=== PATIENT | male | born 1945 | race Caucasian/White ===

== ENCOUNTER 2020-06-08 20:21 | Inpatient (IN) | payer MEDICARE, OTHER ==
[~2020-06-08] VITALS: Ht 182.9 cm; Wt 77.8 kg
[2020-06-08] MEDS ORDERED: ACETAMINOPHEN 325 MG TAB PO ONE (21:00)
[2020-06-08] MEDS ORDERED: SODIUM CHLORIDE 0.9% 1,000 ML IV ONE (22:15)
[2020-06-08 22:48] LABS: Urine WBC None Seen /hpf (0 - 3)
[2020-06-08 22:56] LABS: Basophils # (auto) 0 10 ^3/uL (0-0.2); Basophils % (auto) 0.4 % (0.0-2.0); Eosinophils # (auto) 0 10 ^3/uL (0-0.8); Hematocrit 42.9 % (41.0-53.0); Hemoglobin 14.8 g/dL (13.5-17.5); Lymphocytes # (auto) 0.9 10 ^3/uL (0.4-5.4); Lymphocytes % (auto) 32.1 % (10.0-50.0); Mean Corpuscular Hemoglobin 29.2 pg (28.0-32.0); Mean Corpuscular Hgb Conc. 34.4 g/dL (32.0-36.0); Monocytes # (auto) 0.3 10 ^3/uL (0-1.3); Monocytes % (auto) 10.6 % (0.0-12.0); Neutrophils # (auto) 1.7 10 ^3/uL (1.6-8.6); Neutrophils % (auto) 56.9 % (37.0-80.0); Nucleated Red Blood Cells % 0.2 %; Platelet Count (auto) 111 10^3/uL (140-450); Red Blood Cells 5.05 10^6/uL (4.5-5.90); Red Cell Distribution Width 14.5 % (11.8-14.3); White Blood Cell 2.9 10^3/uL (4.4-10.8)
[2020-06-08 23:02] LABS: Urine Bacteria NONE SEEN /hpf (None Seen); Urine Blood Negative /uL (Negative); Urine Hyaline Cast FEW /lpf (0 - 2); Urine Specific Gravity 1.035 (1.001-1.035)
[2020-06-08 23:11] LABS: INR 1.32 (0.9-1.15); Partial Thromboplastin Time 29.6 sec (23.0-31.2)
[2020-06-08 23:16] LABS: Albumin 3.3 g/dL (3.4-5.0); Anion Gap 10 (5-15); BUN/Creatinine Ratio 19.8; Blood Urea Nitrogen 21 mg/dL (7-18); Calcium 8.6 mg/dL (8.5-10.1); Carbon Dioxide 20 mmol/L (21-32); Chloride 103 mmol/L (98-107); GFR African American 87 mL/min; GFR Non-African American 72 mL/min; Glucose 329 mg/dL (74-106); Magnesium 1.9 mg/dL (1.6-2.6); Potassium 3.7 mmol/L (3.5-5.1); Sodium 133 mmol/L (136-145)
[2020-06-08 23:29] LABS: Alanine Aminotransferase 34 U/L (16-61); Alkaline Phosphatase 96 U/L (45-117); Aspartate Aminotransferase 22 U/L (15-37); Bilirubin, Total 0.4 mg/dL (0.2-1.0); Total Protein 7.4 g/dL (6.4-8.2)
[2020-06-08] MEDS ORDERED: AMLO5TAB15 PO (23:49)
[2020-06-08] MEDS ORDERED: ATOR1TAB PO (23:49)
[2020-06-08] MEDS ORDERED: OMEP-260 PO (23:49)
[2020-06-08] MEDS ORDERED: CLOP75TA41 PO (23:49)
[2020-06-09] VITALS (7 sets, daily range): BP systolic 102–143; BP diastolic 47–66
[2020-06-09] MEDS ORDERED: levoFLOXacin 750MG 150 ML IV ONE (00:45)
[2020-06-09] MEDS ORDERED: InsuLIN REG 1unit/0.01ml Soln (100units/ml) IV ONE ×2 (01:00→01:15)
[2020-06-09] MEDS ORDERED: SODIUM CHLORIDE 0.9% 1,000 ML IV ONE (01:00)
[2020-06-09] MEDS ORDERED: DEXTROSE (50%) 50ML SYRG IV PRN ×2 (01:30→13:45)
[2020-06-09] MEDS ORDERED: ACETAMINOPHEN 500 MG TAB PO PRN (01:30)
[2020-06-09] MEDS ORDERED: SODIUM CHLORIDE 0.9% 1,000 ML IV SCH (01:30)
[2020-06-09] MEDS ORDERED: DexAMETHasone SOD PHOS 10MG/1ML VIAL INJ IV SCH (02:00)
--- NOTE | 2020-06-09 02:40 | NUR ---
Telemetry admit from ER WINDY CAMPA admitted to Telemetry unit after SBAR received. Patient oriented to KAJAL CARR RN primary RN, unit, room, bed, and unit policies regarding patient care and visiting hours. Patient now on continuous telemetry monitoring, tele box # 8 and telemetry reading on arrival to unit is Sinus Rhythm at 75BPM. Patient placed on bedside oxygen, weighed by bedscale and encouraged to call if they need something. All questions and concerns addressed, patient verbalized understanding.
[2020-06-09] MEDS: ACCU-CHEK COMFORT CURVE STRIP VI SCH ×5 (04:24→22:00)
[2020-06-09] MEDS: InsuLIN REG 1unit/0.01ml Soln (100units/ml) SC SCH ×4 (04:37→22:55)
[2020-06-09] MEDS ORDERED: ALBUTEROL SULF HFA 90MCG INH 200DOSE IN SCH (06:00)
--- NOTE | 2020-06-09 08:00 | NUR ---
ASSESSMENT NOTE PT IS ALERT ORIENTED X4, RESTING IN BED COMFORTABLY, ABLE TO VERBALIS HER NEEDS AND SELF REPOSITION, USE URINAL NEEDED, PAIN 0/10, PT ON 5 L NC SAT AT 96 %, NO DISTRESS NOTED, PAIN 0/10, CALL LIGHT WITHIN REACH
--- NOTE | 2020-06-09 08:25 | NUR ---
IV insertion IV access obtained, via clean sterile technique by inserting 22 gauge catheter at after attempt(s). IV secured properly. No trauma to site. Patient tolerated procedure well.PT ACCIDENTALLY PULLED OLD IV OUT, INTACT, PRESSURE APPLIED
[2020-06-09] MEDS: ENOXAPARIN SOD 40 MG/0.4 ML SYRINGE SC SCH (09:56)
[2020-06-09] MEDS ORDERED: ZINC SULFATE 220mg CAP or TAB PO SCH (10:00)
[2020-06-09] MEDS ORDERED: cefTRIAXone 1GM/50ML D5W 50 ML IV ONE (10:00)
[2020-06-09] MEDS ORDERED: CHOLECALCIFEROL (VITD3) 2,000 UNIT CAP PO SCH (10:00)
[2020-06-09] MEDS ORDERED: BUDESONIDE (INHALATION) 180 MCG IH IN SCH (10:00)
[2020-06-09] MEDS ORDERED: DOXYCYCLINE 100 MG TAB/CAP PO SCH (10:00)
[2020-06-09] MEDS ORDERED: ASCORBIC ACID 1,000 MG TAB PO SCH (10:00)
--- NOTE | 2020-06-09 10:15 | NUR ---
CHEST CT PT MADE AWARE OF THE CHEST CT, NOTHING BY MOUTH TILL THE TEST IS DONE, PT VERBALIS UNDERSTANDING
--- NOTE | 2020-06-09 10:26 | NUR ---
IV insertion IV access obtained, via clean sterile technique by inserting 20 gauge catheter at after attempt(s). IV secured properly. No trauma to site. Patient tolerated procedure well. FOR CHEST CT PURPOSES
--- NOTE | 2020-06-09 12:00 | NUR ---
INSULIN ON HOLD, TILL PT DONE WITH CHEST CT, THEN HE CAN EAT LUNCH
--- NOTE | 2020-06-09 12:36 | NUR ---
PT IS NEGATIVE FOR COVID, CHARGE NURSE RYLIE MADE AWARE
[2020-06-09] MEDS ORDERED: CLOPIDOGREL BISULFATE 75 MG TAB PO ONE (13:45)
[2020-06-09] MEDS ORDERED: INSULIN LANTUS (GLARGINE) 1 /0.01ml (100units/ml) SC ONE (13:45)
--- NOTE | 2020-06-09 14:50 | NUR ---
REPORT GIVEN TO RUBY WINTER, WITH ALL LATEST PT UPDATE, CONTINUE AWAITING FOR THE TELE BOX
--- NOTE | 2020-06-09 15:30 | NUR ---
TRANSFER PT TO [facility] WITH ALL HIS BELONGING, PT CONTINUE NPO FOR CHEST CT, OXYGEN 4 L THOMAS, RYLIE MANAGER BEVERAGE NURSE AT BED SIDE, NO DISTRESS NOTED, CONTINUE CARE
[2020-06-09] MEDS ORDERED: IOHEXOL 350 MG/ML 100ML IJ ONE (15:33)
--- NOTE | 2020-06-09 15:56 | NUR ---
PATIENT ARRIVED FROM [facility].
[2020-06-09] MEDS: ALBUTEROL SULF 2.5 MG/0.5ML(0.5%) NEB SOLN NEB SCH (18:51)
[2020-06-09] MEDS: IPRATROPIUM BROM 0.5 MG/2.5ML INH SOL NEB SCH (18:51)
[2020-06-09] MEDS: ATORVASTATIN 20 MG TAB PO SCH (22:56)
[2020-06-10] MEDS: ACETAMINOPHEN 325 MG TAB PO PRN ×3 (04:28→15:55)
[2020-06-10 05:00] VITALS: BP 144/68
[2020-06-10] MEDS: ALBUTEROL SULF 2.5 MG/0.5ML(0.5%) NEB SOLN NEB SCH ×4 (06:31→18:09)
[2020-06-10] MEDS: IPRATROPIUM BROM 0.5 MG/2.5ML INH SOL NEB SCH ×4 (06:31→18:09)
[2020-06-10] MEDS: ACCU-CHEK COMFORT CURVE STRIP VI SCH ×4 (06:44→21:19)
[2020-06-10] MEDS: InsuLIN REG 1unit/0.01ml Soln (100units/ml) SC SCH ×4 (06:44→21:20)
--- NOTE | 2020-06-10 07:08 | NUR ---
High Temp The patient was discovered with a high temp of 101F at 0430hrs. Gave the patient Tylenol to reduce the fever. upon reassessment he was 99.1F. Will continue to monitor.
[2020-06-10 07:28] LABS: Basophils # (auto) 0 10 ^3/uL (0-0.2); Basophils % (auto) 0.5 % (0.0-2.0); Eosinophils # (auto) 0 10 ^3/uL (0-0.8); Hematocrit 40.1 % (41.0-53.0); Hemoglobin 13.7 g/dL (13.5-17.5); Lymphocytes # (auto) 1.1 10 ^3/uL (0.4-5.4); Lymphocytes % (auto) 33.2 % (10.0-50.0); Mean Corpuscular Hemoglobin 29.1 pg (28.0-32.0); Mean Corpuscular Hgb Conc. 34.2 g/dL (32.0-36.0); Monocytes # (auto) 0.2 10 ^3/uL (0-1.3); Monocytes % (auto) 7.4 % (0.0-12.0); Neutrophils # (auto) 1.9 10 ^3/uL (1.6-8.6); Neutrophils % (auto) 58.9 % (37.0-80.0); Nucleated Red Blood Cells % 0.2 %; Platelet Count (auto) 103 10^3/uL (140-450); Red Blood Cells 4.73 10^6/uL (4.5-5.90); Red Cell Distribution Width 14.2 % (11.8-14.3); White Blood Cell 3.3 10^3/uL (4.4-10.8)
--- NOTE | 2020-06-10 07:30 | NUR ---
Opening Note Received report from extension supervisor RN. Patient is awake, alert and oriented x4. No signs or symptoms of distress noted at this time. Patient denies pain or shortness of breath at this time. Patient is on room air, respirations even and unlabored. Reviewed plan of care with patient, patient verbalized understanding. Bed in low and locked position, call light within reach. Will continue to monitor Q1 hour and PRN.
[2020-06-10 07:42] LABS: Calcium 8.2 mg/dL (8.5-10.1); Potassium 3.6 mmol/L (3.5-5.1)
[2020-06-10 07:47] LABS: Bilirubin, Total 0.5 mg/dL (0.2-1.0); Total Protein 6.5 g/dL (6.4-8.2)
[2020-06-10 08:52] VITALS: BP 118/57
[2020-06-10] MEDS: amLODIPine BESYLATE 5 MG TAB PO SCH (09:09)
[2020-06-10] MEDS: CLOPIDOGREL BISULFATE 75 MG TAB PO SCH (09:10)
[2020-06-10] MEDS: cefTRIAXone 1GM/50ML D5W 50 ML IV SCH (09:10)
[2020-06-10] MEDS: ENOXAPARIN SOD 40 MG/0.4 ML SYRINGE SC SCH (09:11)
[2020-06-10] MEDS: INSULIN LANTUS (GLARGINE) 1 /0.01ml (100units/ml) SC SCH (09:24)
[2020-06-10] MEDS: AZITHROMYCIN 500MG/ 250ML 250 ML IV SCH (10:18)
[2020-06-10 12:51] VITALS: BP 95/46
[2020-06-10 16:41] VITALS: BP 129/63
--- NOTE | 2020-06-10 19:08 | NUR ---
Closing Note Report given to shift supervisor RN. No signs or symptoms of distress noted at this time.
--- NOTE | 2020-06-10 19:40 | NUR ---
Opening Shift Note Assumed care of patient, awake and alert. No S/S of distress/SOB or pain. Fall and safety precautions in place. Call light within reach and able to use. Instructed on POC and to call for assist PRN, patient verbalized understanding and in agreement. Will continue to monitor for changes Q1hr and PRN.
[2020-06-10] MEDS: ATORVASTATIN 20 MG TAB PO SCH (21:19)
[2020-06-10] MEDS ORDERED: INSULIN LANTUS (GLARGINE) 1 /0.01ml (100units/ml) SC SCH (22:00)
[2020-06-10 22:54] VITALS: BP 130/70
[2020-06-11] MEDS: ALBUTEROL SULF 2.5 MG/0.5ML(0.5%) NEB SOLN NEB SCH ×4 (00:02→18:55)
[2020-06-11] MEDS: IPRATROPIUM BROM 0.5 MG/2.5ML INH SOL NEB SCH ×4 (00:02→18:55)
--- NOTE | 2020-06-11 04:45 | NUR ---
TEMP PATIENT'S ORAL TEMP 101.4 F. PATIENT EDUCATED ON INDICATION FOR COOLING MEASURES, PATIENT VERBALIZED UNDERSTANDING AND IN AGREEMENT. MEASURES INITIATED AT THIS TIME (SEE EMAR). WILL CONTINUE TO MONITOR.
[2020-06-11] MEDS: ACETAMINOPHEN 325 MG TAB PO PRN (04:49)
[2020-06-11 05:33] VITALS: BP 130/71
--- NOTE | 2020-06-11 05:49 | NUR ---
TEMP RECHECK PATIENT'S ORAL TEMP NOW 98.6 F. WILL CONTINUE TO MONITOR.
[2020-06-11] MEDS: ACCU-CHEK COMFORT CURVE STRIP VI SCH ×4 (06:13→21:27)
[2020-06-11] MEDS: InsuLIN REG 1unit/0.01ml Soln (100units/ml) SC SCH ×4 (06:15→21:29)
--- NOTE | 2020-06-11 07:30 | NUR ---
Opening Shift Note Assumed care of patient, awake and alert. No S/S of distress/SOB or pain. Instructed on POC and to call for assist PRN, will continue to monitor for changes Q1hr and PRN.
[2020-06-11 07:40] LABS: Basophils # (auto) 0 10 ^3/uL (0-0.2); Basophils % (auto) 1.9 % (0.0-2.0); Eosinophils # (auto) 0 10 ^3/uL (0-0.8); Hematocrit 41.2 % (41.0-53.0); Lymphocytes % (auto) 38.2 % (10.0-50.0); Mean Corpuscular Hemoglobin 28.8 pg (28.0-32.0); Mean Corpuscular Hgb Conc. 34.1 g/dL (32.0-36.0); Mean Corpuscular Volume 84.4 fL (80.0-100.0); Monocytes # (auto) 0.2 10 ^3/uL (0-1.3); Monocytes % (auto) 7.9 % (0.0-12.0); Neutrophils # (auto) 1.3 10 ^3/uL (1.6-8.6); Nucleated Red Blood Cells % 0.3 %; Platelet Count (auto) 102 10^3/uL (140-450); Red Blood Cells 4.88 10^6/uL (4.5-5.90); Red Cell Distribution Width 14.2 % (11.8-14.3); White Blood Cell 2.6 10^3/uL (4.4-10.8)
[2020-06-11 08:04] LABS: Albumin 2.8 g/dL (3.4-5.0); Potassium 3.4 mmol/L (3.5-5.1)
[2020-06-11 08:09] LABS: BUN/Creatinine Ratio 17.4; Bilirubin, Total 0.4 mg/dL (0.2-1.0); Total Protein 6.4 g/dL (6.4-8.2)
[2020-06-11 08:52] VITALS: BP 113/58
[2020-06-11] MEDS: INSULIN LANTUS (GLARGINE) 1 /0.01ml (100units/ml) SC SCH ×2 (10:00→21:29)
[2020-06-11] MEDS: cefTRIAXone 1GM/50ML D5W 50 ML IV SCH (10:31)
[2020-06-11] MEDS: AZITHROMYCIN 500MG/ 250ML 250 ML IV SCH (10:32)
[2020-06-11] MEDS: ENOXAPARIN SOD 40 MG/0.4 ML SYRINGE SC SCH (10:32)
[2020-06-11] MEDS: CLOPIDOGREL BISULFATE 75 MG TAB PO SCH (10:33)
[2020-06-11] MEDS: amLODIPine BESYLATE 5 MG TAB PO SCH (10:33)
[2020-06-11 12:02] VITALS: BP 124/62
[2020-06-11] MEDS ORDERED: POTASSIUM EFFERVESENT TAB 25 MEQ PO ONE (16:45)
[2020-06-11 17:00] VITALS: BP 134/67
[2020-06-11] MEDS ORDERED: PANTOPRAZOLE 40 MG TAB PO ONE (17:00)
--- NOTE | 2020-06-11 18:56 | NUR ---
End of shift Pt. resting comfortably; no signs or symptoms of distress. Care endorsed.
--- NOTE | 2020-06-11 19:50 | NUR ---
Opening Shift Note Assumed care of patient, AOX4. Fall and safety precautions in place. No S/S of distress/SOB or pain. Call light within reach and able to use. Instructed on POC and to call for assist PRN, patient verbalized understanding and in agreement. Will continue to monitor for changes Q1hr and PRN.
[2020-06-11] MEDS: ATORVASTATIN 20 MG TAB PO SCH (21:27)
[2020-06-11 22:00] VITALS: BP 133/69
--- NOTE | 2020-06-11 22:00 | NUR ---
15 L Oxymizer Patient's O2 saturation on 6 L Oxymizer mid to high 80's. Patient O2 increased to 15 L at this time. O2 saturation 89%. RT paged to notify. RT to assess patient and shows O2 saturation increased to 92% after repositioning. Will continue to monitor.
[2020-06-12] VITALS (8 sets, daily range): BP systolic 115–156; BP diastolic 52–94
[2020-06-12] MEDS: IPRATROPIUM BROM 0.5 MG/2.5ML INH SOL NEB SCH ×4 (00:27→19:27)
[2020-06-12] MEDS: ALBUTEROL SULF 2.5 MG/0.5ML(0.5%) NEB SOLN NEB SCH ×4 (00:27→19:27)
[2020-06-12] MEDS: ACCU-CHEK COMFORT CURVE STRIP VI SCH ×4 (06:13→21:44)
[2020-06-12] MEDS: InsuLIN REG 1unit/0.01ml Soln (100units/ml) SC SCH ×4 (06:13→21:45)
[2020-06-12] MEDS: INSULIN LANTUS (GLARGINE) 1 /0.01ml (100units/ml) SC SCH ×2 (06:18→21:45)
[2020-06-12] MEDS: LACTULOSE 20Gm/30ML SOLN PO PRN (06:18)
[2020-06-12 06:37] LABS: Basophils # (auto) 0 10 ^3/uL (0-0.2); Basophils % (auto) 0.3 % (0.0-2.0); Eosinophils # (auto) 0 10 ^3/uL (0-0.8); Hematocrit 42.2 % (41.0-53.0); Hemoglobin 14.6 g/dL (13.5-17.5); Lymphocytes # (auto) 1.2 10 ^3/uL (0.4-5.4); Lymphocytes % (auto) 32.9 % (10.0-50.0); Mean Corpuscular Hgb Conc. 34.6 g/dL (32.0-36.0); Mean Corpuscular Volume 83.9 fL (80.0-100.0); Monocytes # (auto) 0.2 10 ^3/uL (0-1.3); Monocytes % (auto) 4.7 % (0.0-12.0); Neutrophils # (auto) 2.2 10 ^3/uL (1.6-8.6); Neutrophils % (auto) 62.1 % (37.0-80.0); Nucleated Red Blood Cells % 0.2 %; Platelet Count (auto) 115 10^3/uL (140-450); Red Blood Cells 5.03 10^6/uL (4.5-5.90); Red Cell Distribution Width 14.2 % (11.8-14.3); White Blood Cell 3.6 10^3/uL (4.4-10.8)
[2020-06-12 06:51] LABS: BUN/Creatinine Ratio 16.5; Calcium 7.9 mg/dL (8.5-10.1); Potassium 3.2 mmol/L (3.5-5.1)
[2020-06-12] MEDS: cefTRIAXone 1GM/50ML D5W 50 ML IV SCH (10:33)
[2020-06-12] MEDS: PANTOPRAZOLE 40 MG TAB PO SCH (10:34)
[2020-06-12] MEDS: ENOXAPARIN SOD 40 MG/0.4 ML SYRINGE SC SCH (10:34)
[2020-06-12] MEDS: AZITHROMYCIN 500MG/ 250ML 250 ML IV SCH (10:34)
[2020-06-12] MEDS: CLOPIDOGREL BISULFATE 75 MG TAB PO SCH (10:34)
[2020-06-12] MEDS: amLODIPine BESYLATE 5 MG TAB PO SCH (10:35)
--- NOTE | 2020-06-12 11:14 | NUR ---
Nutrition Assessment Est energy needs 9656-2140 kcal (20-25 kcal/kg BW 83.3kg) Est protein needs 66-83g (0.8-1g/kg BW 83.3kg) Will reassess prn. Addendum: 06/12/20 at [address] Amended: Links added.
[2020-06-12] MEDS ORDERED: POTASSIUM EFFERVESENT TAB 25 MEQ PO ONE (12:45)
--- NOTE | 2020-06-12 19:30 | NUR ---
Opening Shift Note Assumed care of patient, awake and alert. No S/S of distress/SOB or pain. Call light within reach and able to use. Fall and safety precautions in place. Instructed on POC and to call for assist PRN, patient verbalized understanding and in agreement. Will continue to monitor for changes Q1hr and PRN.
--- NOTE | 2020-06-12 19:33 | NUR ---
AT BEDSIDE FOR MED ANURADHA STRAUSS.
--- NOTE | 2020-06-12 20:40 | NUR ---
CARE ENDORSED CALLED [facility] AT THIS TIME. FULL REPORT GIVEN AND INDICATION FOR TRANSFER, ALL QUESTIONS ANSWERED. WILL TRANSFER PATIENT. Addendum: 06/12/20 at 2344 by SHEFALI HOOPER RN RN TIME CORRECTION [id number]*
[2020-06-12] MEDS: ATORVASTATIN 20 MG TAB PO SCH (21:44)
--- NOTE | 2020-06-12 21:54 | NUR ---
LOW 02 PATIENT'S O2 SATURATION 80'S ON 10 L OXYMIZER. PATIENT O2 INCREASED TO 15L/MIN, HOB RAISED TO HIGH DAVIS'S, AND PATIENT ASSISTED TO COUGH/DEEP BREATH. PATIENT'S O2 SATURATION INCREASED TO 85%. RT PAGED FOR ASSISTANCE. WILL CONTINUE TO MONITOR.
--- NOTE | 2020-06-12 21:55 | NUR ---
PAGED TO BEDSIDE TO ASSESS PT, DUE TO LOW SATURATION.
--- NOTE | 2020-06-12 22:00 | NUR ---
[facility] PAGED [facility] P[facility]ED TO UPDATE ON PATIENT'S ACUTE RESPIRATORY DISTRESS / PATIENT STATUS. AWAITING CALL BACK. WILL CONTINUE TO MONITOR.
--- NOTE | 2020-06-12 22:03 | NUR ---
ABG OBTAINED ON RRA, ON FIRST ATTEMPT AND WITHOUT INCIDENT.
--- NOTE | 2020-06-12 22:09 | NUR ---
COMMUNICATED TV HOST ARJUN AND HS OF THE NEED TO UPGRADE PT, DUE TO PT PRESENTATION AND O2 CONSUMPTION/SATURATION STATUS, PRIMARY RN SHEFALI COMMUNICATES ALSO OF ABG RESULTS AND TO OBTAIN ORDERS FOR TRANSFER.
--- NOTE | 2020-06-12 22:10 | NUR ---
PLACED PT ON NRB FLUSHED, PENDING TRANSFER TO [facility] FOR HFNC PLACEMENT.
--- NOTE | 2020-06-12 22:15 | NUR ---
[facility] PAGED AGAIN HAVE NOT YET RECEIVED A CALL BACK FROM [facility]-CALL HOSP. BREAKER OFF AND DOROTHY SOSA AWARE. INSTRUCTED TO PAGE AGAIN. PAGED AGAIN WITH PATIENT'S TRACEY REGARDING RESPIRATORY STATUS. AWAITING CALL BACK. WILL CONTINUE TO MONITOR.
--- NOTE | 2020-06-12 22:30 | NUR ---
CHARGE NEW PAGES ROTARY DRIER PAGES FOR [facility]CALL [facility]. AWAITING CALL BACK.
--- NOTE | 2020-06-12 22:35 | NUR ---
CALL BACK FROM [facility] RECEIVED A CALL BACK FROM [facility] AT THIS TIME. UPDATED CAR DISPATCHER ON PATIENT STATUS. NEW ORDERS RECEIVED, READ BACK AND VERIFIED (SEE NEW ORDERS). WILL CARRY OUT. TO TRANSFER PATIENT TO ROOM 265 WITH NEW [facility] RN.
--- NOTE | 2020-06-12 22:50 | NUR ---
TRANSFERRED TO [facility] PATIENT SAFELY TRANSFERRED TO [facility] AT THIS TIME VIA BED ASSISTED BY DIRECTOR OF HOUSING AND ENERGY SERVICES WITH ALL PATIENT'S PERSONAL BELONGINGS AND OXYGEN. CARE ENDORSED AT THIS TIME TO NEW RN.
--- NOTE | 2020-06-12 23:05 | NUR ---
PLACED PT ON HFNC UNIT HFNC UNIT CONNECTED TO RED OUTLE AND O2 SOURCE ALARMS ARE SET AND AUDIBLE. A Addendum: 06/12/20 at 2317 by Kerry Naik, RT PLACED PT ON HFNC UNIT. HFNC UNIT CONNECTED TO O2 AND MEDICAL AIR WALL SOURCE. ALARMS ARE SET AND AUDIBLE ON DOC HEATER. BS ARE FINE CRACKLES HEARD IN BILATERAL BASES. RT NAME AND PAGER ASSIGNMENT WRITTEN ON PTS ROOM BOARD WILL CONTINUE TO MONITOR.
[2020-06-12] MEDS: ACETAMINOPHEN 325 MG TAB PO PRN (23:13)
--- NOTE | 2020-06-12 23:18 | NUR ---
Transferred to [facility], report received from Ena WINTER. SHARITA MALAVEWINDY transferred to [facility] via bed on portable bus driver/monitor, and portable 02. Patient transferred to bed, connected to unit monitoring and Hi-Flow oxygen, and weighed by [facility]. Patient oriented to Crys Villalta primary RN, unit, room, bed, and unit policies regarding patient care. All questions and concerns addressed, patient verbalized understanding. Pt has fever and chills, Tylenol given. Crackles heard bilat bases. Denies pain at this time. Will continue to monitor.
--- NOTE | 2020-06-12 23:20 | NUR ---
NOK NOTIFIED OF TRANSFER NOK (PATIENT'S - SELENE) CONTACTED VIA TELEPHONE AT THIS TIME AND UPDATED ON PATIENT STATUS AND TRANSFER STATUS. ALL QUESTIONS ANSWERED AND NOTIFIED HOW TO ADDRESS FURTHER QUESTIONS NEEDED, PATIENT'S NOK VERBALIZED UNDERSTANDING AND IN AGREEMENT.
[2020-06-13] VITALS (12 sets, daily range): BP systolic 127–157; BP diastolic 53–68
[2020-06-13] MEDS: IPRATROPIUM BROM 0.5 MG/2.5ML INH SOL NEB SCH ×4 (01:09→18:24)
[2020-06-13] MEDS: ALBUTEROL SULF 2.5 MG/0.5ML(0.5%) NEB SOLN NEB SCH ×4 (01:09→18:24)
--- NOTE | 2020-06-13 01:23 | NUR ---
FIO2 TITRATED VIA HFNC, PT NOW ON 90% FIO2 DELIVERING AT 60LPM. COMMUNICATED MOY [facility] OF O2 CHANGE. WILL CONTINUE TO MONITOR.
--- NOTE | 2020-06-13 03:05 | NUR ---
AT BEDSIDE FOR ROUTINE HFNC CHECK. NO CHANGES MADE. WILL CONTINUE TO MONITOR.
[2020-06-13 04:41] LABS: Basophils # (auto) 0 10 ^3/uL (0-0.2); Basophils % (auto) 0.3 % (0.0-2.0); Eosinophils # (auto) 0 10 ^3/uL (0-0.8); Eosinophils % (auto) 0.1 % (0.0-7.0); Hematocrit 39.8 % (41.0-53.0); Hemoglobin 13.6 g/dL (13.5-17.5); Lymphocytes # (auto) 1.3 10 ^3/uL (0.4-5.4); Lymphocytes % (auto) 31.1 % (10.0-50.0); Mean Corpuscular Hemoglobin 28.6 pg (28.0-32.0); Mean Corpuscular Hgb Conc. 34.2 g/dL (32.0-36.0); Mean Corpuscular Volume 83.6 fL (80.0-100.0); Monocytes # (auto) 0.2 10 ^3/uL (0-1.3); Monocytes % (auto) 4.3 % (0.0-12.0); Neutrophils # (auto) 2.7 10 ^3/uL (1.6-8.6); Neutrophils % (auto) 64.2 % (37.0-80.0); Nucleated Red Blood Cells % 0.4 %; Platelet Count (auto) 121 10^3/uL (140-450); Red Blood Cells 4.76 10^6/uL (4.5-5.90); Red Cell Distribution Width 14.1 % (11.8-14.3); White Blood Cell 4.3 10^3/uL (4.4-10.8)
[2020-06-13 05:03] LABS: Potassium 3.4 mmol/L (3.5-5.1)
[2020-06-13 05:11] LABS: BUN/Creatinine Ratio 19.2; Calcium 8.1 mg/dL (8.5-10.1)
[2020-06-13] MEDS: INSULIN LANTUS (GLARGINE) 1 /0.01ml (100units/ml) SC SCH ×2 (07:01→21:39)
[2020-06-13] MEDS: ACCU-CHEK COMFORT CURVE STRIP VI SCH ×4 (07:02→21:36)
[2020-06-13] MEDS: InsuLIN REG 1unit/0.01ml Soln (100units/ml) SC SCH ×4 (07:02→21:37)
--- NOTE | 2020-06-13 07:45 | NUR ---
OPENING SHIFT NOTE Received report from NOC RNCrys. Assumed care of patient. Received patient lying in bed connected to bedside monitor with alarms in place. Patient is A&Ox4, denies pain and has no s/s of distress noted. Patient on high flow oxygen, 60L 90% with O2 sats in the low 90s. Lung sounds clear to diminished bases. Patient using urinal independently and can reposition self with minimal assistance. Bed in lowest position, rails x3 up and call light within reach. Updated on plan of care. Will continue to monitor.
--- NOTE | 2020-06-13 08:19 | NUR ---
Pt remains stable, afebrile and tolerating hi-flow well. Report given to AM shift, care endorsed.
--- NOTE | 2020-06-13 09:17 | NUR ---
HOLD P.T. BECAUSE OF TRANSFER TO [facility]. AWAIT NEW ORDERS.
[2020-06-13] MEDS: cefTRIAXone 1GM/50ML D5W 50 ML IV SCH (09:43)
[2020-06-13] MEDS: CLOPIDOGREL BISULFATE 75 MG TAB PO SCH (10:40)
[2020-06-13] MEDS: AZITHROMYCIN 500MG/ 250ML 250 ML IV SCH (10:40)
[2020-06-13] MEDS: amLODIPine BESYLATE 5 MG TAB PO SCH (10:40)
[2020-06-13] MEDS: ENOXAPARIN SOD 40 MG/0.4 ML SYRINGE SC SCH (10:40)
[2020-06-13] MEDS: PANTOPRAZOLE 40 MG TAB PO SCH (10:40)
--- NOTE | 2020-06-13 12:30 | NUR ---
MD Dr Castro to see patient.
[2020-06-13] MEDS ORDERED: VANCOMYCIN PER PHARMACY 1,000 MG IV SCH (12:45)
--- NOTE | 2020-06-13 12:54 | NUR ---
MD Dr Tavera to see patient. Orders received.
[2020-06-13] MEDS ORDERED: POTASSIUM CHL 20 Meq TABLET PO ONE (14:30)
[2020-06-13] MEDS: MEROPENEM 1GM IVPB 100 ML IV SCH ×2 (16:03→21:02)
[2020-06-13] MEDS: LACTULOSE 20Gm/30ML SOLN PO PRN (16:51)
[2020-06-13] MEDS ORDERED: SODIUM CHL 3% 500 ML BAG IN ONE (18:00)
[2020-06-13] MEDS: VANCOMYCIN 1GM/250ML 250 ML IV SCH (18:09)
[2020-06-13] MEDS: BUDESONIDE (INHALATION) 0.5 MG/2 ML NEB NEB SCH (18:24)
--- NOTE | 2020-06-13 19:16 | NUR ---
END OF SHIFT NOTE Patient resting in bed after eating dinner. Patient remains on high flow 60L 90% with O2 sats in the low 90s. Patient pending a respiratory culture with sputum induction by respiratory. Report to be given to SHAYNE WINTER.
[2020-06-13] MEDS: ATORVASTATIN 20 MG TAB PO SCH (21:02)
[2020-06-13] MEDS: ACETAMINOPHEN 325 MG TAB PO PRN (21:07)
[2020-06-14] VITALS (13 sets, daily range): BP systolic 91–132; BP diastolic 39–59
[2020-06-14] MEDS: ALBUTEROL SULF 2.5 MG/0.5ML(0.5%) NEB SOLN NEB SCH ×4 (00:25→19:11)
[2020-06-14] MEDS: IPRATROPIUM BROM 0.5 MG/2.5ML INH SOL NEB SCH ×4 (00:25→19:11)
--- NOTE | 2020-06-14 00:30 | NUR ---
BED BATH GIVEN TO PATIENT, PATIENT SKIN IS INTACT
[2020-06-14 03:53] LABS: Basophils # (auto) 0 10 ^3/uL (0-0.2); Basophils % (auto) 0.1 % (0.0-2.0); Eosinophils # (auto) 0 10 ^3/uL (0-0.8); Hematocrit 40.7 % (41.0-53.0); Hemoglobin 14.3 g/dL (13.5-17.5); Lymphocytes # (auto) 0.6 10 ^3/uL (0.4-5.4); Mean Corpuscular Hemoglobin 29.3 pg (28.0-32.0); Mean Corpuscular Hgb Conc. 35.1 g/dL (32.0-36.0); Mean Corpuscular Volume 83.5 fL (80.0-100.0); Monocytes # (auto) 0.1 10 ^3/uL (0-1.3); Monocytes % (auto) 2.7 % (0.0-12.0); Neutrophils % (auto) 80.2 % (37.0-80.0); Nucleated Red Blood Cells % 0.1 %; Platelet Count (auto) 142 10^3/uL (140-450); Red Blood Cells 4.87 10^6/uL (4.5-5.90); Red Cell Distribution Width 14.6 % (11.8-14.3); White Blood Cell 3.8 10^3/uL (4.4-10.8)
[2020-06-14] MEDS: VANCOMYCIN 1GM/250ML 250 ML IV SCH ×2 (05:02→21:02)
[2020-06-14] MEDS: BUDESONIDE (INHALATION) 0.5 MG/2 ML NEB NEB SCH ×2 (06:00→19:11)
[2020-06-14] MEDS: MEROPENEM 1GM IVPB 100 ML IV SCH ×3 (06:26→22:41)
[2020-06-14] MEDS: InsuLIN REG 1unit/0.01ml Soln (100units/ml) SC SCH ×4 (07:01→21:00)
[2020-06-14] MEDS: INSULIN LANTUS (GLARGINE) 1 /0.01ml (100units/ml) SC SCH ×2 (07:02→21:03)
[2020-06-14] MEDS: ACCU-CHEK COMFORT CURVE STRIP VI SCH ×4 (07:24→20:32)
[2020-06-14] MEDS: amLODIPine BESYLATE 5 MG TAB PO SCH (09:08)
[2020-06-14] MEDS: PANTOPRAZOLE 40 MG TAB PO SCH (09:09)
[2020-06-14] MEDS: CLOPIDOGREL BISULFATE 75 MG TAB PO SCH (09:09)
[2020-06-14] MEDS: ENOXAPARIN SOD 40 MG/0.4 ML SYRINGE SC SCH (09:09)
--- NOTE | 2020-06-14 11:35 | NUR ---
Respiratory note: SCHEDULED MED NEB TX NOT GIVEN, PT ASKED TO COME BACK IN A FEW MINUTES. NO RESP DISTRESS NOTED.
[2020-06-14] MEDS ORDERED: methylPREDNISolone SOD SUCC 40 MG/ML VL IV ONE (11:45)
[2020-06-14] MEDS ORDERED: FUROSEMIDE 40 MG/4 ML VIAL IV ONE (12:00)
--- NOTE | 2020-06-14 12:00 | NUR ---
No distress noted, pt. resting in bed, no complaints noted, will cont.to monitor for any changes, call vernon in reach, assessment ongoing.
--- NOTE | 2020-06-14 12:00 | NUR ---
Respiratory note: SECOND ATTEMPT FOR MED NEB TX. PT REFUSED AT THIS TIME. NO RESP DISTRESS NOTED.
--- NOTE | 2020-06-14 19:00 | NUR ---
RECEIVED REPORT FROM NURSE SZYMANSKI TO RESUME CARE OF PATIENT.
--- NOTE | 2020-06-14 19:05 | NUR ---
No distress noted, pt. report given to MOY Turk. Care of pt. assumed per NOC RN, day shift RN relinquished care and signed off.
--- NOTE | 2020-06-14 19:45 | NUR ---
Opening Shift Note Assumed care of patient, awake and alert. No S/S of distress/SOB patient currently on BIPAP 16/8 with FiO2 70% or pain any discomfort. Instructed on POC, informed patient will be on BIPAP during the course of the night and will be reevaluated periodically and to call for assist PRN, will continue to monitor for changes Q1hr and PRN. patient verbalizes understanding no questions asked.
[2020-06-14] MEDS ORDERED: REMDESIVIR 200 MG in NS 210ml LOADING DOSE ADULT IV ONE (20:00)
[2020-06-14] MEDS: ATORVASTATIN 20 MG TAB PO SCH (21:02)
--- NOTE | 2020-06-14 22:46 | NUR ---
REMDESIVIR INFUSION PATIENT HAS ORDERS FOR REMDESIVIR. PATIENT HAS NO NKDA. PATIENT SIGNED CONSENT FOR INFUSION. PATIENT WAS GIVEN FIRST DOSE OF REMDSIVIR IVPB PATIENT TOLERATED WELL NO ADVERSE REACTIONS NOTED. WILL CONTINUE TO MONITOR PATIENT.
[2020-06-15] VITALS (19 sets, daily range): BP systolic 113–138; BP diastolic 50–79
[2020-06-15] MEDS: IPRATROPIUM BROM 0.5 MG/2.5ML INH SOL NEB SCH ×5 (00:10→23:28)
[2020-06-15] MEDS: ALBUTEROL SULF 2.5 MG/0.5ML(0.5%) NEB SOLN NEB SCH ×5 (00:10→23:28)
--- NOTE | 2020-06-15 05:57 | NUR ---
CONVALESCENT PLASMA PATIENT HAS ORDERS FOR CONVALESCENT PLASMA. PLASMA VERIFIED WITH NURSE SE. PATIENT CONVALESCENT PLASMA COMPLETED AND HAS NO COMPLAINTS OF PAIN OR ANY DISCOMFORT. WILL CONTINUE TO MONITOR PATIENT. PATIENT CONTINUES NOVEL RESPIRATORY ISOLATION.
[2020-06-15] MEDS: MEROPENEM 1GM IVPB 100 ML IV SCH (06:00)
[2020-06-15] MEDS: ACCU-CHEK COMFORT CURVE STRIP VI SCH ×4 (06:53→21:13)
[2020-06-15] MEDS: InsuLIN REG 1unit/0.01ml Soln (100units/ml) SC SCH ×4 (06:54→21:25)
[2020-06-15] MEDS: INSULIN LANTUS (GLARGINE) 1 /0.01ml (100units/ml) SC SCH ×2 (06:54→21:25)
[2020-06-15] MEDS: BUDESONIDE (INHALATION) 0.5 MG/2 ML NEB NEB SCH ×2 (07:02→19:10)
[2020-06-15] MEDS: PANTOPRAZOLE 40 MG TAB PO SCH (08:58)
[2020-06-15] MEDS: CLOPIDOGREL BISULFATE 75 MG TAB PO SCH (08:58)
[2020-06-15] MEDS: ENOXAPARIN SOD 40 MG/0.4 ML SYRINGE SC SCH (08:59)
--- NOTE | 2020-06-15 09:20 | NUR ---
Respiratory note: PT PLACED BACK ON HFNC PER PT REQUEST TO EAT BREAKFAST WITH A FLOW OF 65L, 100% FIO2. HR 68, SPO2 92%, RR 22, BS CLEAR/DIMINISHED BILATERALLY. PT TOLERATED CHANGE WELL. RN MARQUEZ RUIZ. WILL CONTINUE TO MONITOR PT. CHARTING COMPLETE FROM OUTSIDE OF PT ROOM PER COVID-19 PRECAUTIONS/PROTOCOL.
[2020-06-15] MEDS: POTASSIUM CHL 10 Meq TABLET PO SCH (10:00)
[2020-06-15] MEDS ORDERED: DexAMETHasone SOD PHOS 10MG/1ML VIAL INJ IV ONE (10:00)
[2020-06-15] MEDS: DexAMETHasone SOD PHOS 10MG/1ML VIAL INJ IV SCH (10:00)
[2020-06-15] MEDS: FUROSEMIDE 40 MG/4 ML VIAL IV SCH ×2 (10:00)
[2020-06-15] MEDS ORDERED: methylPREDNISolone SOD SUCC 40 MG/ML VL IV SCH (10:00)
[2020-06-15] MEDS ORDERED: FUROSEMIDE 40 MG/4 ML VIAL IV ONE (10:00)
--- NOTE | 2020-06-15 13:55 | NUR ---
assessment Patient is a 74 year old male who is alert and oriented. Patient is covid positive and on hi flow oxygen. I spoke with patients Sofi and prior to admission patient lived home with his and was independent. Patient had no need for DME prior to admission. Patient and has no idea how patient was exposed to covid 19. Prior to admission patient was not eating, sleeping, and did not feel good so family called 911 and patient was admitted. I informed Sofi I will continue to monitor and follow up as appropriate for any post discharge needs. Sofi verbalized understand. Addendum: 06/15/20 at 1403 by Angelita SEGOVIA Amended: Links added.
--- NOTE | 2020-06-15 15:07 | NUR ---
Nutrition Followup Wt 79.6 kg Pt was in isolation COVID +ve . pt is currently on CCHO 45 gm/meal diet with adequate Po of 75% x 4 per RN doc Est energy needs 4833-1079 kcal (20-25 kcal/kg BW 83.3kg) Est protein needs 66-83g (0.8-1g/kg BW 83.3kg) Will reassess prn. . Labs: GLU 249 H BM: Pt had 1 BM yesterday per RN note Skin: BS 16 mod risk, full details in director career services note PES: 1) Altered nutrition related lab values aeb hyperglycemia, hypoalb r/t current/chronic medical condition Comments: Will continue to monitor PO status, skin status, pertinent labs and weight trends. Will f/u in 3-5 days. Rec: 1) Consider CCHO 60 gm as needs are higher. 2) refer pt to [facility]PD on DC 3) Continue current plan of care
[2020-06-15] MEDS: REMDESIVIR 100mg in NS 230ml DAILYx4DAYS (NO VENT) IV SCH (17:37)
[2020-06-15] MEDS: ATORVASTATIN 20 MG TAB PO SCH (21:13)
[2020-06-16] VITALS (9 sets, daily range): BP systolic 120–150; BP diastolic 43–97
[2020-06-16 03:20] LABS: Basophils # (auto) 0 10 ^3/uL (0-0.2); Basophils % (auto) 0.2 % (0.0-2.0); Eosinophils # (auto) 0 10 ^3/uL (0-0.8); Hematocrit 37.1 % (41.0-53.0); Hemoglobin 12.7 g/dL (13.5-17.5); Lymphocytes # (auto) 0.8 10 ^3/uL (0.4-5.4); Lymphocytes % (auto) 14.1 % (10.0-50.0); Mean Corpuscular Hemoglobin 28.6 pg (28.0-32.0); Mean Corpuscular Hgb Conc. 34.1 g/dL (32.0-36.0); Mean Corpuscular Volume 83.8 fL (80.0-100.0); Monocytes # (auto) 0.4 10 ^3/uL (0-1.3); Monocytes % (auto) 8.1 % (0.0-12.0); Neutrophils # (auto) 4.3 10 ^3/uL (1.6-8.6); Neutrophils % (auto) 77.6 % (37.0-80.0); Platelet Count (auto) 171 10^3/uL (140-450); Red Blood Cells 4.42 10^6/uL (4.5-5.90); White Blood Cell 5.5 10^3/uL (4.4-10.8)
[2020-06-16 03:41] LABS: Albumin 2.6 g/dL (3.4-5.0); Calcium 8.1 mg/dL (8.5-10.1); Potassium 3.2 mmol/L (3.5-5.1)
[2020-06-16 03:44] LABS: BUN/Creatinine Ratio 26.3; Bilirubin, Total 0.5 mg/dL (0.2-1.0); Total Protein 6.3 g/dL (6.4-8.2)
[2020-06-16] MEDS: ACCU-CHEK COMFORT CURVE STRIP VI SCH ×4 (06:08→22:19)
[2020-06-16] MEDS: ALBUTEROL SULF 2.5 MG/0.5ML(0.5%) NEB SOLN NEB SCH ×3 (06:14→18:49)
[2020-06-16] MEDS: IPRATROPIUM BROM 0.5 MG/2.5ML INH SOL NEB SCH ×3 (06:14→18:50)
[2020-06-16] MEDS: BUDESONIDE (INHALATION) 0.5 MG/2 ML NEB NEB SCH ×2 (06:14→18:50)
[2020-06-16] MEDS: InsuLIN REG 1unit/0.01ml Soln (100units/ml) SC SCH ×4 (06:19→22:23)
[2020-06-16] MEDS: INSULIN LANTUS (GLARGINE) 1 /0.01ml (100units/ml) SC SCH ×2 (06:20→22:22)
--- NOTE | 2020-06-16 07:30 | NUR ---
RECEIVED REPORT PATIENT LYING IN HOSPITAL BED, EYES CLOSED RESPIRATIONS EVEN AND UNLABORED ON HIGHFLOW NASAL CANNULA. PATIENT CONNECTED TO BEDSIDE MONITOR, CALL LIGHT WITHIN REACH. BED IN LOW POSITION. IN VIEW OF NURSES STATION. WILL CONTINUE TO MONITOR CLOSELY
[2020-06-16] MEDS: POTASSIUM CHL 10 Meq TABLET PO SCH (08:09)
[2020-06-16] MEDS: CLOPIDOGREL BISULFATE 75 MG TAB PO SCH (08:09)
[2020-06-16] MEDS: PANTOPRAZOLE 40 MG TAB PO SCH (08:09)
[2020-06-16] MEDS: ENOXAPARIN SOD 40 MG/0.4 ML SYRINGE SC SCH (08:09)
[2020-06-16] MEDS: DexAMETHasone SOD PHOS 10MG/1ML VIAL INJ IV SCH (08:12)
[2020-06-16] MEDS: FUROSEMIDE 40 MG/4 ML VIAL IV SCH ×2 (08:12)
[2020-06-16] MEDS: levoFLOXacin 750MG 150 ML IV SCH (09:45)
--- NOTE | 2020-06-16 11:20 | NUR ---
DR FIERRO AT BEDSIDE NO NEW ORDERS AT THIS TIME
[2020-06-16] MEDS ORDERED: POTASSIUM CHL 20 Meq TABLET PO ONE (12:15)
--- NOTE | 2020-06-16 12:28 | NUR ---
DR LOPEZ AT BEDSIDE DISCUSSED PLAN OF CARE WITH PATIENT.
[2020-06-16] MEDS ORDERED: ASCORBIC ACID 500 MG TAB PO ONE (12:45)
[2020-06-16] MEDS ORDERED: ZINC SULFATE 220mg CAP or TAB PO ONE (12:45)
[2020-06-16] MEDS ORDERED: CHOLECALCIFEROL (VITD3) 2,000 UNIT CAP PO ONE (12:45)
[2020-06-16 12:51] LABS: Magnesium 2.3 mg/dL (1.6-2.6)
[2020-06-16 12:53] LABS: Phosphorus 3.1 mg/dL (2.5-4.90)
--- NOTE | 2020-06-16 13:22 | NUR ---
MIDLINE RN AT BEDSIDE
--- NOTE | 2020-06-16 14:04 | NUR ---
Midline Placement: Patient educated on need for midline placement. All risks and benefits explained and all questions and concerns addresses prior to procedure. 18g/10 cm midline inserted via right basilic vein using Ultrasound. Sterile technique utilized. Blood return obtained from the single lumen and flushed easily with NS using proper technique. Midline secured with saline lock; biodisc and occlusive dressing applied. MOY Barroso notified. Midline lot # [id number]
[2020-06-16] MEDS: LACTULOSE 20Gm/30ML SOLN PO PRN (16:11)
--- NOTE | 2020-06-16 16:18 | NUR ---
BEDSIDE COMMODE PATIENT TRANSFERRED TO BEDSIDE COMMODE WITH STANDBY BY ASSIST. ABLE TO HAVE SMALL FORMED BM. TRANSFERRED BACK TO BED.
--- NOTE | 2020-06-16 16:45 | NUR ---
PATIENT ALREADY UP TO BSC TODAY. ATTEMPT P.T. TOMORROW.
[2020-06-16] MEDS: REMDESIVIR 100mg in NS 230ml DAILYx4DAYS (NO VENT) IV SCH (17:00)
--- NOTE | 2020-06-16 19:50 | NUR ---
OPENING NOTE REPORT RECEIVED FROM LEATHA RN. THIS IS A POSITIVE COVID PATIENT ON NOVEL RESPIRATORY ISOLATION. PATIENT IS A/OX4, CONNECTED TO CONTINUOUS BEDSIDE MONITORS. HEART RATE IN 80'S, SPO2 IN LOW 90'S. PATIENT IS ON HIGH FLOW NASAL CANNULA 70L, FIO2 100%. PATIENT EDUCATED ON BENEFITS OF SELF PRONING. PATIENT REFUSES TO ATTEMPT TO PRONE AND STATES, "I CAN'T BREATHE LIKE THAT, I WON'T DO IT". PATIENT ENCOURAGED TO AT LEAST REST ON HIS SIDES AND NOT ON HIS BACK. PHYSICAL ASSESSMENT DONE-SEE INTERVENTIONS. RIGHT UPPER ARM MIDLINE IN PLACE. PERIPHERAL IV LINE TO LEFT FOREARM INTACT AND PATENT. POC DISCUSSED WITH PATIENT, ALL QUESTIONS ANSWERED.
[2020-06-16] MEDS: ASCORBIC ACID 500 MG TAB PO SCH (22:17)
[2020-06-16] MEDS: ATORVASTATIN 20 MG TAB PO SCH (22:19)
[2020-06-17] VITALS (10 sets, daily range): BP systolic 108–148; BP diastolic 43–72
[2020-06-17] MEDS: ALBUTEROL SULF 2.5 MG/0.5ML(0.5%) NEB SOLN NEB SCH ×4 (00:29→19:52)
[2020-06-17] MEDS: IPRATROPIUM BROM 0.5 MG/2.5ML INH SOL NEB SCH ×4 (00:29→19:52)
--- NOTE | 2020-06-17 05:30 | NUR ---
LAB CALLED LAB, SPOKE WITH TRUE UNABLE TO DRAW ANY BLOOD FROM MIDLINE. PATIENT WILL NEED PERIPHERAL DRAW. SUSTAINABILITY PROJECT MANAGER MADE AWARE PER TRUE
--- NOTE | 2020-06-17 05:30 | NUR ---
HYPOGLYCEMIA PATIENT MORNING GLUCOSE 52, IMMEDIATELY RECHECKED AND WAS 62. PATIENT IS AWAKE/ALERT/ORIENTED. SNACKS GIVEN. PATIENT ABLE TO DRINK JUICES AND EAT JARRETT CRACKERS WITHOUT ANY DIFFICULTY. WILL REASSESS GLUCOSE IN 30 MINUTES
--- NOTE | 2020-06-17 05:50 | NUR ---
AM CARE REFUSAL PATIENT REFUSED AM CARE AND LINEN CHANGE. PATIENT STATES, "I CHANGED MY OWN LINEN YESTERDAY". [facility] OFFERED PATIENT BED BATH/ AM CARE, PATIENT REFUSED AT THIS TIME. EDUCATED PATIENT THAT IF HE CHANGES HIS MIND AT ANYTIME TO CALL FOR ASSISTANCE AND AM CARE AND LINEN CHANGE WILL BE PERFORMED.
--- NOTE | 2020-06-17 06:05 | NUR ---
GLUCOSE RECHECK BLOOD GLUCOSE NOW 91. PATIENT STATES, "I FEEL FINE".
--- NOTE | 2020-06-17 06:13 | NUR ---
LAB HERE TO DRAW PERIPHERALLY
[2020-06-17] MEDS: BUDESONIDE (INHALATION) 0.5 MG/2 ML NEB NEB SCH ×2 (06:20→19:52)
[2020-06-17] MEDS: InsuLIN REG 1unit/0.01ml Soln (100units/ml) SC SCH ×4 (06:36→22:33)
[2020-06-17] MEDS: ACCU-CHEK COMFORT CURVE STRIP VI SCH ×4 (06:36→22:00)
[2020-06-17] MEDS: INSULIN LANTUS (GLARGINE) 1 /0.01ml (100units/ml) SC SCH ×2 (06:36→22:33)
[2020-06-17 07:03] LABS: Basophils # (auto) 0 10 ^3/uL (0-0.2); Basophils % (auto) 0.1 % (0.0-2.0); Eosinophils # (auto) 0 10 ^3/uL (0-0.8); Eosinophils % (auto) 0.4 % (0.0-7.0); Hematocrit 38.9 % (41.0-53.0); Hemoglobin 13.3 g/dL (13.5-17.5); Lymphocytes # (auto) 1.2 10 ^3/uL (0.4-5.4); Lymphocytes % (auto) 21.6 % (10.0-50.0); Mean Corpuscular Hemoglobin 28.6 pg (28.0-32.0); Mean Corpuscular Hgb Conc. 34.1 g/dL (32.0-36.0); Mean Corpuscular Volume 83.9 fL (80.0-100.0); Monocytes # (auto) 0.2 10 ^3/uL (0-1.3); Monocytes % (auto) 4.5 % (0.0-12.0); Neutrophils % (auto) 73.4 % (37.0-80.0); Nucleated Red Blood Cells % 0.2 %; Platelet Count (auto) 146 10^3/uL (140-450); Red Blood Cells 4.64 10^6/uL (4.5-5.90); Red Cell Distribution Width 14.3 % (11.8-14.3); White Blood Cell 5.5 10^3/uL (4.4-10.8)
[2020-06-17 07:25] LABS: Albumin 2.6 g/dL (3.4-5.0); Calcium 8.4 mg/dL (8.5-10.1)
--- NOTE | 2020-06-17 07:27 | NUR ---
CLOSING PATIENT SLEEPING COMFORTABLY, NO S/S OF DISTRESS. HEART RATE IN 70'S, SPO2 AT 98%. PATIENT REMAINS ON HFNC 70L, FIO2 100%. CARE ENDORSED TO MOY CASTILLO TO ASSUME CARE OF PATIENT
[2020-06-17 07:30] LABS: BUN/Creatinine Ratio 24.2; Bilirubin, Total 0.7 mg/dL (0.2-1.0); Total Protein 6.1 g/dL (6.4-8.2)
--- NOTE | 2020-06-17 07:30 | NUR ---
Pox Patient oob using urinal. Per noc nurse report, patient is constantly needing reminding to placed high flow on and to call if help is needed. Pox noted as low at 79-80% when moving around. Instructed patient to call as he is at high risk for falling. Patient back to bed and pox back to 96%. pt remains on 70%. Will continue to monitor.
[2020-06-17] MEDS: levoFLOXacin 750MG 150 ML IV SCH (09:06)
[2020-06-17] MEDS: DexAMETHasone SOD PHOS 10MG/1ML VIAL INJ IV SCH (09:09)
[2020-06-17] MEDS: PANTOPRAZOLE 40 MG TAB PO SCH (09:10)
[2020-06-17] MEDS: CHOLECALCIFEROL (VITD3) 2,000 UNIT CAP PO SCH (09:10)
[2020-06-17] MEDS: POTASSIUM CHL 10 Meq TABLET PO SCH ×2 (09:10→22:31)
[2020-06-17] MEDS: CLOPIDOGREL BISULFATE 75 MG TAB PO SCH (09:10)
[2020-06-17] MEDS: ASCORBIC ACID 500 MG TAB PO SCH ×2 (09:10→22:32)
[2020-06-17] MEDS: ZINC SULFATE 220mg CAP or TAB PO SCH (09:10)
[2020-06-17] MEDS: ENOXAPARIN SOD 40 MG/0.4 ML SYRINGE SC SCH (09:10)
[2020-06-17] MEDS: FUROSEMIDE 40 MG/4 ML VIAL IV SCH (09:11)
--- NOTE | 2020-06-17 12:15 | NUR ---
AT BEDSIDE. DR. LOPEZ AT BEDSIDE. MD EDUCATED PATIENT ON IMPORTANCE OF PRONING TO ASSIST WITH OXYGENATION. PATIENT CONTINUES TO REFUSE STATING HE "CANNOT LAY ON HIS STOMACH". PATIENT STATING HE IS HOT, ROOM TEMP ADJUSTED. SEE MD ORDERS.
--- NOTE | 2020-06-17 12:30 | NUR ---
INSTRUMENT PANEL ASSEMBLER UPDATED ON PATIENT. SEE NEW ORDERS.
[2020-06-17] MEDS ORDERED: POTASSIUM CHL 20 Meq TABLET PO ONE (12:45)
--- NOTE | 2020-06-17 13:55 | NUR ---
Nutrition/activity Patient sitting at edge of bedside eating lunch, pox 90%, no distress noted. Will continue to monitor.
[2020-06-17] MEDS: REMDESIVIR 100mg in NS 230ml DAILYx4DAYS (NO VENT) IV SCH (17:20)
--- NOTE | 2020-06-17 18:27 | NUR ---
ELIMINATION PATIENT ABLE TO TRANSFER FROM BED TO BSC WITH STANDBY ASSISTANCE. PT HAD A LARGE, SOFT, BROWN BM. ANDIE CARE DONE INDEPENDENTLY. PT ASSISTED BACK TO BED WITH STANDBY ASSISTANCE. PT TOLERATED WELL. PATIENT EDUCATED TO CONTINUE TO CALL FOR HELP WHEN GETTING UP. PATIENT VERBALIZED UNDERSTANDING. BED IN LOWEST POSITION. BED RAILS UP X2, NON SKID SOCKS AND FALL RISK BAND IN PLACE. CALL LIGHT AT REACH.
--- NOTE | 2020-06-17 19:15 | NUR ---
Opening notes Assumed care, awake and oriented, sitting at the edge of the bed with no signs of distress, on high flow, 70L, FiO2 100% SPO2 91%, able to do things independently with minimal assistance prn. Bed in lowest position with side rails up, bed alarm on. Will continue care.
[2020-06-17] MEDS: ATORVASTATIN 20 MG TAB PO SCH (22:32)
[2020-06-18] VITALS (10 sets, daily range): BP systolic 119–143; BP diastolic 54–75
[2020-06-18 03:41] LABS: Basophils # (auto) 0 10 ^3/uL (0-0.2); Basophils % (auto) 0.2 % (0.0-2.0); Eosinophils # (auto) 0 10 ^3/uL (0-0.8); Eosinophils % (auto) 0.7 % (0.0-7.0); Lymphocytes # (auto) 1.3 10 ^3/uL (0.4-5.4); Lymphocytes % (auto) 19.8 % (10.0-50.0); Mean Corpuscular Hemoglobin 28.9 pg (28.0-32.0); Mean Corpuscular Hgb Conc. 34.2 g/dL (32.0-36.0); Mean Corpuscular Volume 84.5 fL (80.0-100.0); Monocytes # (auto) 0.4 10 ^3/uL (0-1.3); Monocytes % (auto) 5.4 % (0.0-12.0); Neutrophils # (auto) 4.9 10 ^3/uL (1.6-8.6); Neutrophils % (auto) 73.9 % (37.0-80.0); Nucleated Red Blood Cells % 0.1 %; Platelet Count (auto) 139 10^3/uL (140-450); Red Blood Cells 4.85 10^6/uL (4.5-5.90); Red Cell Distribution Width 14.5 % (11.8-14.3); White Blood Cell 6.6 10^3/uL (4.4-10.8)
[2020-06-18 03:55] LABS: BUN/Creatinine Ratio 23.9; Calcium 8.3 mg/dL (8.5-10.1); Potassium 3.3 mmol/L (3.5-5.1)
--- NOTE | 2020-06-18 05:00 | NUR ---
Morning care done, linens changed
--- NOTE | 2020-06-18 06:10 | NUR ---
Maik De Santiago, gave 1 cup of apple juice
[2020-06-18] MEDS: ALBUTEROL SULF 2.5 MG/0.5ML(0.5%) NEB SOLN NEB SCH ×4 (06:36→18:59)
[2020-06-18] MEDS: IPRATROPIUM BROM 0.5 MG/2.5ML INH SOL NEB SCH ×4 (06:36→18:59)
[2020-06-18] MEDS: BUDESONIDE (INHALATION) 0.5 MG/2 ML NEB NEB SCH ×2 (06:36→18:59)
[2020-06-18] MEDS: InsuLIN REG 1unit/0.01ml Soln (100units/ml) SC SCH ×4 (06:54→21:05)
[2020-06-18] MEDS: ACCU-CHEK COMFORT CURVE STRIP VI SCH ×4 (06:55→21:46)
[2020-06-18] MEDS: INSULIN LANTUS (GLARGINE) 1 /0.01ml (100units/ml) SC SCH ×2 (06:55→21:46)
--- NOTE | 2020-06-18 07:30 | NUR ---
REPORT REPORT RECEIVED FROM DAYTON RNSAUL. PT IN ISOLATION FOR + COVID. VIEWED PT THROUGH GLASS DOORS. NO DISTRESS NOTED.
--- NOTE | 2020-06-18 07:52 | NUR ---
ASSESSMENT PT HAS TAKEN HIS HIGH FLOW O2 OFF AND O2 SATURATIONS DROPPING, DOWN TO 77% BEFORE I WAS ABLE TO PUT ON PPE AND GET INTO THE ROOM. PUT THE HIGH FLOW O2 BACK ON, 100% FIO2 WITH A 70 L FLOW. PT'S O2 SATS DID NOT RECOVER TO 91% UNTIL 0814. DISCUSSED WITH THE PT THE IMPORTANCE OF LEAVING THE OXYGEN ON HE IS VERY DEPENDENT ON IT AND HAS NO RESERVES. HE STATED HE UNDERSTOOD. LUNGS CLEAR AND DIMINISHED THROUGHOUT. TELE ST 103. PALPABLE PULSES TO ALL EXTREMITIES WITH NO EDEMA NOTED. ABD SOFT WITH + BOWEL SOUNDS. USES URINAL TO VOID , NONE AT THIS TIME. PT ASSISTED TO DANGLE AT THE SIDE OF THE BED. BRUISING NOTED TO THE LEFT HIP. MIDLINE TO THE RUE. TRIED TO FLUSH THE SALINE LOCK LFA AND IT DOES NOT FLUSH. DC'D.
[2020-06-18] MEDS: levoFLOXacin 750MG 150 ML IV SCH (10:02)
[2020-06-18] MEDS: PANTOPRAZOLE 40 MG TAB PO SCH (10:02)
[2020-06-18] MEDS: ZINC SULFATE 220mg CAP or TAB PO SCH (10:02)
[2020-06-18] MEDS: ASCORBIC ACID 500 MG TAB PO SCH ×2 (10:02→21:44)
[2020-06-18] MEDS: CLOPIDOGREL BISULFATE 75 MG TAB PO SCH (10:02)
[2020-06-18] MEDS: DexAMETHasone SOD PHOS 10MG/1ML VIAL INJ IV SCH (10:02)
[2020-06-18] MEDS: POTASSIUM CHL 10 Meq TABLET PO SCH ×2 (10:02→21:43)
--- NOTE | 2020-06-18 10:02 | NUR ---
Pt given scheduled meds. Denies any pain. Pt's O2 saturations drop to the mid 80's with ay exertion. Cautioned pt not to get OOB as his O2 saturation drops and he is unsteady on his feet. Pt stated he understood.
--- NOTE | 2020-06-18 10:02 | NUR ---
ENTERED ROOM TO CHECK ON PT AND ADMINISTER SCHEDULED MEDS.
[2020-06-18] MEDS: ENOXAPARIN SOD 40 MG/0.4 ML SYRINGE SC SCH (10:03)
[2020-06-18] MEDS: CHOLECALCIFEROL (VITD3) 2,000 UNIT CAP PO SCH (10:03)
[2020-06-18 10:27] LABS: Albumin 2.7 g/dL (3.4-5.0); Bilirubin, Direct 0.3 mg/dL (0-0.2)
[2020-06-18] MEDS: FUROSEMIDE 40 MG/4 ML VIAL IV SCH (10:38)
[2020-06-18] MEDS ORDERED: POTASSIUM CHL 20 Meq TABLET PO ONE (11:45)
--- NOTE | 2020-06-18 12:00 | NUR ---
PT SITTING UP ON THE EDGE OF THE BED. REMAINS ON THE HIGH FLOW O2 AT 100% FIO2 AND 70 L FLOW. O2 SAT OF 91%. ACCUCHECK OF 181 AND GIVEN 3 UNITS OF REGULAR INSULIN SQ. CONTINUE TO MONITOR.
--- NOTE | 2020-06-18 12:20 | NUR ---
Nutrition Followup Wt 76.7 kg Pt was in isolation COVID +ve . pt is currently on CCHO 45 gm/meal diet with adequate Po of 75% x 6 per RN doc Est energy needs 0920-4337 kcal (20-25 kcal/kg BW 83.3kg) Est protein needs 66-83g (0.8-1g/kg BW 83.3kg) Will reassess prn. . Labs: GLU 261 H, ALB 2.4 L BM: Pt had 1 BM yesterday per RN note Skin: BS 20 mod risk, full details in adult care provider note PES: 1) Altered nutrition related lab values aeb hyperglycemia, hypoalb r/t current/chronic medical condition Comments: Will continue to monitor PO status, skin status, pertinent labs and weight trends. Will f/u in 3-5 days. Rec: 1) Consider CCHO 60 gm as needs are higher. 2) refer pt to OPD on DC 3) Continue current plan of care
--- NOTE | 2020-06-18 14:30 | NUR ---
IN ROOM TO CHECK ON PT . NO CHANGE IN O2 REQUIREMENTS. O2 SAT OF 96%. CONTINUE TO MONITOR.
[2020-06-18] MEDS: REMDESIVIR 100mg in NS 230ml DAILYx4DAYS (NO VENT) IV SCH (17:34)
--- NOTE | 2020-06-18 17:35 | NUR ---
ACCUCHECK OF 212 AND GIVEN REGULAR INSULIN COVERAGE OF 6 UNITS SQ. PT VOIDED 150 ML CLEAR YELLOW URINE VIA URINAL.
--- NOTE | 2020-06-18 17:50 | NUR ---
FAMILY RECEIVED A PHONE CALL FROM PT'S SISTER, ROBEL. AFTER VERIFYING THE PASSWORD, I UPDATED HER ON THE PT'S CONDITION AND ANSWERED HER QUESTIONS.
--- NOTE | 2020-06-18 18:59 | NUR ---
AT BEDSIDE IN FULL PPE DUE TO COVID PRECAUTIONS. RECEIVED PT ON HFNC UNIT, UNIT CONNECTED TO RED OUTLET, O2 AND MEDICAL AIR WALL SOURCE. AMBU BAG AND MASK AT BEDSIDE. BS ARE DIMINISHED T/O. MED NEB TX GIVEN INLINE HFNC UNIT VIA AEROGEN. NO HFNC CHANGES MADE AT THIS TIME. WILL CONTINUE TO MONITOR.
--- NOTE | 2020-06-18 19:20 | NUR ---
Opening Shift Note Received report and Assumed care of patient, awake and alert. Patient currently on High Flow oxygen 70L at 100% oxygen, patient has evidence of bloody nose. patient educated not to pick nose to prevent bloody nose.
--- NOTE | 2020-06-18 21:05 | NUR ---
Refused Med Patient refused regular insulin 6 units stating that his BS has been low... Patient agreed to take long acting lantus 20 Units
[2020-06-18] MEDS: ATORVASTATIN 20 MG TAB PO SCH (21:44)
--- NOTE | 2020-06-18 23:00 | NUR ---
Patient rounding patient is laying quietly in bed without distress at this time. currently on HF 70L at 100% oxygen with O2 sat 96%
[2020-06-19] VITALS: BP 103/61
[2020-06-19] MEDS: IPRATROPIUM BROM 0.5 MG/2.5ML INH SOL NEB SCH ×4 (00:41→18:49)
[2020-06-19] MEDS: ALBUTEROL SULF 2.5 MG/0.5ML(0.5%) NEB SOLN NEB SCH ×4 (00:41→18:50)
--- NOTE | 2020-06-19 02:30 | NUR ---
decreasing O2 Sat patient is sitting at edge of the bed oxygen sat decreased to 79% HF NC readjusted more securely to face, patient states he has to stand to use urinal, instructed patient to wait for a moment to allow oxygen to elevate after a few minutes O2Sat is in 85% with stand by assist patient used urinal and returned to sitting position, patient remains in the mid 80's at this time.
--- NOTE | 2020-06-19 03:15 | NUR ---
Oxygen Re-evaluation patient now has an O2 Sat of 92% on HF NC 70L and 100% oxygen.
[2020-06-19 04:00] VITALS: BP 107/53
[2020-06-19 04:23] LABS: Basophils # (auto) 0 10 ^3/uL (0-0.2); Eosinophils # (auto) 0.1 10 ^3/uL (0-0.8); Eosinophils % (auto) 1.5 % (0.0-7.0); Hematocrit 39.3 % (41.0-53.0); Hemoglobin 13.2 g/dL (13.5-17.5); Lymphocytes # (auto) 1.2 10 ^3/uL (0.4-5.4); Lymphocytes % (auto) 22.9 % (10.0-50.0); Mean Corpuscular Hemoglobin 28.8 pg (28.0-32.0); Mean Corpuscular Hgb Conc. 33.7 g/dL (32.0-36.0); Mean Corpuscular Volume 85.4 fL (80.0-100.0); Monocytes # (auto) 0.3 10 ^3/uL (0-1.3); Monocytes % (auto) 6.3 % (0.0-12.0); Neutrophils # (auto) 3.7 10 ^3/uL (1.6-8.6); Neutrophils % (auto) 69.3 % (37.0-80.0); Nucleated Red Blood Cells % 0.2 %; Platelet Count (auto) 134 10^3/uL (140-450); Red Cell Distribution Width 14.2 % (11.8-14.3); White Blood Cell 5.3 10^3/uL (4.4-10.8)
[2020-06-19 04:25] LABS: Albumin 2.6 g/dL (3.4-5.0); Potassium 4.1 mmol/L (3.5-5.1)
[2020-06-19 04:30] LABS: BUN/Creatinine Ratio 24.2; Bilirubin, Total 0.8 mg/dL (0.2-1.0)
--- NOTE | 2020-06-19 05:00 | NUR ---
Patient provided partial CHG wipe chair bath, full linen change and gown change patient tolerated process with moderate distress oxygen saturation reduced to 81-82% on HF 70L at 100% oxygen. Will follow patient O2 recovery.
[2020-06-19] MEDS: ACCU-CHEK COMFORT CURVE STRIP VI SCH ×4 (06:14→22:00)
[2020-06-19] MEDS: InsuLIN REG 1unit/0.01ml Soln (100units/ml) SC SCH ×4 (06:14→22:33)
[2020-06-19] MEDS: BUDESONIDE (INHALATION) 0.5 MG/2 ML NEB NEB SCH (06:26)
[2020-06-19] MEDS: INSULIN LANTUS (GLARGINE) 1 /0.01ml (100units/ml) SC SCH ×2 (06:37→22:34)
--- NOTE | 2020-06-19 06:45 | NUR ---
panic attack patient stated that he is feels panic oxygen saturation is 82% patient instructed to lay in bed and be still and to breath through nose after a period on time and patient following instruction patient was able to have an o2 Saturation of 89% education patient that if he breaths through his nose. his oxygen level will improve.
--- NOTE | 2020-06-19 07:10 | NUR ---
End Shift Note Provided shift report and endorsed care, patient had issues with oxygen saturation on and off through out the night, patient desaturates with most movement and takes an extended amount of time to recover when patient is laying still in bed o2 saturation is in the low 90's patient is currently on HF 70L with 100% oxygen.
--- NOTE | 2020-06-19 07:14 | NUR ---
Assumed care of pt., report received per MOY Bautista. No distress noted, pt. reading sinus rhythm on monitor, will cont.to monitor for any changes, call vernon in reach, assessment ongoing.
[2020-06-19 08:00] VITALS: BP 109/55
[2020-06-19] MEDS: DexAMETHasone SOD PHOS 10MG/1ML VIAL INJ IV SCH (10:17)
[2020-06-19] MEDS: FUROSEMIDE 40 MG/4 ML VIAL IV SCH (10:18)
[2020-06-19] MEDS: CLOPIDOGREL BISULFATE 75 MG TAB PO SCH (10:18)
[2020-06-19] MEDS: levoFLOXacin 750MG 150 ML IV SCH (10:18)
[2020-06-19] MEDS: POTASSIUM CHL 10 Meq TABLET PO SCH ×2 (10:18→22:33)
[2020-06-19] MEDS: PANTOPRAZOLE 40 MG TAB PO SCH (10:18)
[2020-06-19] MEDS: ZINC SULFATE 220mg CAP or TAB PO SCH (10:18)
[2020-06-19] MEDS: ENOXAPARIN SOD 40 MG/0.4 ML SYRINGE SC SCH (10:19)
[2020-06-19] MEDS: CHOLECALCIFEROL (VITD3) 2,000 UNIT CAP PO SCH (10:19)
[2020-06-19] MEDS: ASCORBIC ACID 500 MG TAB PO SCH ×2 (10:19→22:33)
[2020-06-19 12:00] VITALS: BP 108/49
[2020-06-19 16:00] VITALS: BP 102/41
--- NOTE | 2020-06-19 19:15 | NUR ---
No distress noted,pt. report given to MOY Fowler. Care of pt. assumed per NOC RN, day shift RN relinquished care and signed off.
--- NOTE | 2020-06-19 19:30 | NUR ---
OPENING SHIFT RECEIVED REPORT FROM DAY SHIFT RN. ASSUMED CARE OF PATIENT. PATIENT IN BED RESTING WITH NO SIGNS OR SYMPTOMS OF SOB, PAIN OR DISTRESS. CURRENTLY ON HIGH FLOW NASAL CANNULA 70L / 100%, 02 SAT - 91%. RIGHT UPPER ARM MIDLINE - CLEAN/DRY/INTACT. UPDATED PATIENT ON PLAN OF CARE. REPOSITIONED FOR COMFORT. BED IN LOWEST POSITION, SIDE RAILS UP X2. CALL LIGHT WITHIN REACH. WILL CONTINUE TO MONITOR.
[2020-06-19 20:00] VITALS: BP 120/58
--- NOTE | 2020-06-19 22:05 | NUR ---
EDUCATED PATIENT ON BENEFITS OF BIPAP -PATIENT CONTINUES TO REFUSE USE OF BIPAP
--- NOTE | 2020-06-19 22:10 | NUR ---
PM CARE PATIENT REFUSED PM CARE AND LINEN CHANGE. CLEAN LINEN LEFT AT BEDSIDE.
[2020-06-19] MEDS: ATORVASTATIN 20 MG TAB PO SCH (22:33)
[2020-06-20] VITALS: BP 134/54
[2020-06-20] MEDS: ALBUTEROL SULF 2.5 MG/0.5ML(0.5%) NEB SOLN NEB SCH ×4 (00:05→18:37)
[2020-06-20] MEDS: IPRATROPIUM BROM 0.5 MG/2.5ML INH SOL NEB SCH ×4 (00:05→18:37)
[2020-06-20] MEDS: BUDESONIDE (INHALATION) 0.5 MG/2 ML NEB NEB SCH ×3 (00:06→18:37)
[2020-06-20 04:00] VITALS: BP 131/67
--- NOTE | 2020-06-20 04:15 | NUR ---
MORNING CARE REFUSED PATIENT REFUSED MORNING CARE AND LINEN CHANGE.
[2020-06-20 04:17] LABS: Basophils # (auto) 0 10 ^3/uL (0-0.2); Basophils % (auto) 0.1 % (0.0-2.0); Eosinophils # (auto) 0.1 10 ^3/uL (0-0.8); Hematocrit 42.1 % (41.0-53.0); Hemoglobin 13.8 g/dL (13.5-17.5); Lymphocytes # (auto) 1.3 10 ^3/uL (0.4-5.4); Lymphocytes % (auto) 20.3 % (10.0-50.0); Mean Corpuscular Hgb Conc. 32.8 g/dL (32.0-36.0); Mean Corpuscular Volume 85.3 fL (80.0-100.0); Monocytes # (auto) 0.5 10 ^3/uL (0-1.3); Monocytes % (auto) 7.7 % (0.0-12.0); Neutrophils # (auto) 4.7 10 ^3/uL (1.6-8.6); Neutrophils % (auto) 70.9 % (37.0-80.0); Platelet Count (auto) 136 10^3/uL (140-450); Red Blood Cells 4.93 10^6/uL (4.5-5.90); Red Cell Distribution Width 14.6 % (11.8-14.3); White Blood Cell 6.6 10^3/uL (4.4-10.8)
[2020-06-20 04:46] LABS: Potassium 3.8 mmol/L (3.5-5.1)
[2020-06-20 04:51] LABS: Albumin 2.6 g/dL (3.4-5.0); BUN/Creatinine Ratio 25.7; Bilirubin, Total 0.9 mg/dL (0.2-1.0); Total Protein 6.3 g/dL (6.4-8.2)
[2020-06-20] MEDS: InsuLIN REG 1unit/0.01ml Soln (100units/ml) SC SCH ×4 (07:00→21:39)
[2020-06-20] MEDS: ACCU-CHEK COMFORT CURVE STRIP VI SCH ×4 (07:00→21:38)
[2020-06-20] MEDS: INSULIN LANTUS (GLARGINE) 1 /0.01ml (100units/ml) SC SCH ×2 (07:00→21:38)
--- NOTE | 2020-06-20 07:28 | NUR ---
END OF SHIFT REPORT GIVEN TO DAY SHIFT RN. CARE ENDORSED.
[2020-06-20 08:00] VITALS: BP 122/42
[2020-06-20] MEDS: FUROSEMIDE 40 MG/4 ML VIAL IV SCH (10:18)
[2020-06-20] MEDS: ZINC SULFATE 220mg CAP or TAB PO SCH (10:19)
[2020-06-20] MEDS: POTASSIUM CHL 10 Meq TABLET PO SCH ×2 (10:19→21:39)
[2020-06-20] MEDS: levoFLOXacin 750MG 150 ML IV SCH (10:19)
[2020-06-20] MEDS: CLOPIDOGREL BISULFATE 75 MG TAB PO SCH (10:19)
[2020-06-20] MEDS: PANTOPRAZOLE 40 MG TAB PO SCH (10:19)
[2020-06-20] MEDS: CHOLECALCIFEROL (VITD3) 2,000 UNIT CAP PO SCH (10:20)
[2020-06-20] MEDS: DexAMETHasone SOD PHOS 10MG/1ML VIAL INJ IV SCH (10:20)
[2020-06-20] MEDS: ENOXAPARIN SOD 40 MG/0.4 ML SYRINGE SC SCH (10:20)
[2020-06-20] MEDS: ASCORBIC ACID 500 MG TAB PO SCH ×2 (10:20→21:39)
[2020-06-20 12:00] VITALS: BP 116/49
[2020-06-20] MEDS: Glucerna Carbsteady SHAKE Vanilla 8oz PO SCH (18:09)
--- NOTE | 2020-06-20 19:05 | NUR ---
No distress noted,pt. report given to MOY Bautista. Care of pt. assumed per NOC RN, day shift RN relinquished care and signed off.
--- NOTE | 2020-06-20 19:10 | NUR ---
Opening Shift Note Received report and Assumed care of patient, awake and alert, sitting in chair patient currently on HF at 70L with 80% Oxygen with O2 Sat of 95%.
[2020-06-20 20:00] VITALS: BP 127/52
--- NOTE | 2020-06-20 20:00 | NUR ---
Patient to bed Assisted patient from chair to bed patient self transferred via self with stand by assist. patient Oxygen saturation dropped to 89% with transfer patient oxygen recovered after short time.
[2020-06-20] MEDS: ATORVASTATIN 20 MG TAB PO SCH (21:39)
--- NOTE | 2020-06-20 23:05 | NUR ---
Patient Rounding Patient is laying quietly in bed, on HF NC 70L @ 80% oxygen sating at 98% Showing no S/S of distress at this time.
[2020-06-21] VITALS (8 sets, daily range): BP systolic 101–146; BP diastolic 42–76
[2020-06-21] MEDS: IPRATROPIUM BROM 0.5 MG/2.5ML INH SOL NEB SCH ×5 (00:07→23:50)
[2020-06-21] MEDS: ALBUTEROL SULF 2.5 MG/0.5ML(0.5%) NEB SOLN NEB SCH ×5 (00:07→23:50)
--- NOTE | 2020-06-21 03:35 | NUR ---
Patient Care Assisted patient with the location of his Charging cell phone, offered bed bath to patient patient refused. Partial linen change performed earlier in the night. patient remains on HF 70L at 80% with O2 Sat of 93% patient is resting quietly in bed.
[2020-06-21 03:58] LABS: Basophils # (auto) 0 10 ^3/uL (0-0.2); Basophils % (auto) 0.2 % (0.0-2.0); Eosinophils # (auto) 0.1 10 ^3/uL (0-0.8); Eosinophils % (auto) 1.1 % (0.0-7.0); Hematocrit 40.5 % (41.0-53.0); Hemoglobin 13.7 g/dL (13.5-17.5); Lymphocytes # (auto) 1.5 10 ^3/uL (0.4-5.4); Lymphocytes % (auto) 24.3 % (10.0-50.0); Mean Corpuscular Hemoglobin 28.6 pg (28.0-32.0); Mean Corpuscular Hgb Conc. 33.9 g/dL (32.0-36.0); Mean Corpuscular Volume 84.3 fL (80.0-100.0); Monocytes # (auto) 0.5 10 ^3/uL (0-1.3); Monocytes % (auto) 8.1 % (0.0-12.0); Neutrophils % (auto) 66.3 % (37.0-80.0); Nucleated Red Blood Cells % 0.3 %; Platelet Count (auto) 142 10^3/uL (140-450); Red Blood Cells 4.81 10^6/uL (4.5-5.90); Red Cell Distribution Width 14.6 % (11.8-14.3); White Blood Cell 6.1 10^3/uL (4.4-10.8)
[2020-06-21 04:49] LABS: Albumin 2.7 g/dL (3.4-5.0); Calcium 8.6 mg/dL (8.5-10.1); Potassium 4.3 mmol/L (3.5-5.1)
[2020-06-21 04:52] LABS: BUN/Creatinine Ratio 34.4; Bilirubin, Total 0.8 mg/dL (0.2-1.0); Total Protein 6.2 g/dL (6.4-8.2)
[2020-06-21] MEDS: BUDESONIDE (INHALATION) 0.5 MG/2 ML NEB NEB SCH ×2 (06:26→18:28)
[2020-06-21] MEDS: InsuLIN REG 1unit/0.01ml Soln (100units/ml) SC SCH ×4 (06:57→22:00)
[2020-06-21] MEDS: ACCU-CHEK COMFORT CURVE STRIP VI SCH ×4 (06:58→22:28)
--- NOTE | 2020-06-21 07:05 | NUR ---
Assumed care of pt., no distress noted, pt. attached to monitor and reading sinus rhythm, VSS, will cont.to monitor for any changes, call vernon in reach, assessment ongoing.
[2020-06-21] MEDS: Glucerna Carbsteady SHAKE Vanilla 8oz PO SCH ×2 (08:00→18:00)
[2020-06-21] MEDS: FUROSEMIDE 40 MG/4 ML VIAL IV SCH (10:07)
[2020-06-21] MEDS: levoFLOXacin 750MG 150 ML IV SCH (10:08)
[2020-06-21] MEDS: DexAMETHasone SOD PHOS 10MG/1ML VIAL INJ IV SCH (10:08)
[2020-06-21] MEDS: PANTOPRAZOLE 40 MG TAB PO SCH (10:08)
[2020-06-21] MEDS: CLOPIDOGREL BISULFATE 75 MG TAB PO SCH (10:08)
[2020-06-21] MEDS: POTASSIUM CHL 10 Meq TABLET PO SCH ×2 (10:08→22:27)
[2020-06-21] MEDS: ASCORBIC ACID 500 MG TAB PO SCH ×2 (10:08→22:28)
[2020-06-21] MEDS: INSULIN LANTUS (GLARGINE) 1 /0.01ml (100units/ml) SC SCH (10:08)
[2020-06-21] MEDS: ENOXAPARIN SOD 40 MG/0.4 ML SYRINGE SC SCH (10:09)
[2020-06-21] MEDS: CHOLECALCIFEROL (VITD3) 2,000 UNIT CAP PO SCH (10:09)
--- NOTE | 2020-06-21 10:42 | NUR ---
pt. meds dropped on floor, trashed, new meds given
[2020-06-21] MEDS ORDERED: INSULIN LANTUS (GLARGINE) 1 /0.01ml (100units/ml) SC ONE (12:30)
--- NOTE | 2020-06-21 13:15 | NUR ---
Nutrition Followup Wt 76.5 kg Pt was asleep in isolation room when visited SHERRIE at rounds this morning. Pt is with a CCHO 45g diet with Glucerna 1 carton BID ordered. Pt with poor po intake aeb pt with 25-50% po intake x 2 days per Rn note. Est energy needs 1300-2798 kcal (20-25 kcal/kg BW 83.3kg) Est protein needs 66-83g (0.8-1g/kg BW 83.3kg) Will reassess prn. . Labs: BUN 32H, GLUC 126H, Alb 2.7L BM: Pt had 1 BM 06/21 per RN note Skin: BS 17 mod risk, full details in nanny caregiver note PES: 1) Altered nutrition related lab values aeb hyperglycemia, hypoalb r/t current/chronic medical condition Comments: Will continue to monitor PO status, skin status, pertinent labs and weight trends. Will f/u in 3-5 days. Rec: 1) Consider CCHO 60 gm as needs are higher. 2) refer pt to OPD on DC 3) Continue current plan of care
--- NOTE | 2020-06-21 13:20 | NUR ---
SBAR report given to MOY eMrida. No distress noted, pt. care assumed per MOY Merida. MOY Valdez relinquished care and signed off.
--- NOTE | 2020-06-21 13:33 | NUR ---
TRANSFER OF CARE Received report from MOY Gonzalez. Assumed care of patient.
--- NOTE | 2020-06-21 18:15 | NUR ---
FAMILY T/C from patient's sister. Password verified. Updated on patient status and plan of care. All questions addressed at this time.
--- NOTE | 2020-06-21 19:30 | NUR ---
PATIENT SITTING UP IN CHAIR.
--- NOTE | 2020-06-21 19:34 | NUR ---
END OF SHIFT Report given to NOC RNBrigitte. Endorsed care of patient.
--- NOTE | 2020-06-21 20:00 | NUR ---
ADMITTED WITH WEAKNESS, COUGH, FEVERS AND ELEVATED BLOOD SUGAR. ON 70% , 70 LITER FLOW. VOIDS. IN CHAIR. REFUSING TO BE PRONED OR TO USE BIPAP. LARGE BRUISE LEFT HIP. STEADY ON FEET. NSR WITHOUT ECTOPY.
[2020-06-21] MEDS: ATORVASTATIN 20 MG TAB PO SCH (22:27)
--- NOTE | 2020-06-21 22:30 | NUR ---
meds given . Accucheck replaced with 4 units of regular insulin. Pulse ox replaced. o2 sat 91%. Was asleep. Sat up for pills.
[2020-06-22] VITALS (8 sets, daily range): BP systolic 103–149; BP diastolic 51–72
--- NOTE | 2020-06-22 00:10 | NUR ---
VSS. NO FEVER. NONPRODUCTIVE COUGH. 70 LITERS 80% HI FLOW. OBVIOUSLY HAVING DIFFICULTY BREATHING WITH EXERTION. RT IN ROOM . INCREASED THE FIO2 TO 80%. FLOW IS 70. O2 SAT IS 85% . NO NAUSEA OR OTHER COVID SYMPTOMS. NSR WITHOUT ECTOPY.
--- NOTE | 2020-06-22 00:24 | NUR ---
O2 SAT IS NOW 92%.
--- NOTE | 2020-06-22 01:17 | NUR ---
PATIENT IS IN THE ROOM WAVING AT ME. HE STATED HE IS BREATHING OK. HIS HIGH FLOW MACHINE IS BEEPING. RT NOTIFIED.
--- NOTE | 2020-06-22 02:30 | NUR ---
PATIENT CALLED. ENTANGLED IN CORDS AND CANNOT GET UP TO URINATE. CLEARED THE CORDS FOR HIM. VOIDED 400CC OF CLEAR YELLOW LIQUID
--- NOTE | 2020-06-22 02:47 | NUR ---
RT CHANGED THE HI FLOW CIRCUIT
--- NOTE | 2020-06-22 04:00 | NUR ---
ALERT. ORIENTED. SPEECH CLEAR. LUNGS CLEAR. NONPRODUCTIVE COUGH. REMAINS ON 80% WITH A FLOW OF 70 ( HI FLOW). NO COMPLAINTS OF NAUSEA, PAIN OR DISCOMFORT. MIDLINE FLUSHED. PATIENT TOOK PAD OFF BED AND THREW IT ON THE FLOOR. IV SITE SHOWS NO REDNESS OR SWELLING.
--- NOTE | 2020-06-22 05:04 | NUR ---
UNABLE TO DRAW LABS. LAB NOTIFIED.
--- NOTE | 2020-06-22 06:00 | NUR ---
PATIENT IS ON 80 LITERS, 100%. PATIENT FEELS GOOD. O2 SATURATION HAS BEEN 88-90%. RR IS STEADY. LUNGS CLEAR. NONPRODUCTIVE COUGH.
[2020-06-22] MEDS: InsuLIN REG 1unit/0.01ml Soln (100units/ml) SC SCH ×4 (06:08→20:12)
[2020-06-22] MEDS: ACCU-CHEK COMFORT CURVE STRIP VI SCH ×4 (06:21→20:13)
[2020-06-22] MEDS: IPRATROPIUM BROM 0.5 MG/2.5ML INH SOL NEB SCH ×3 (06:40→18:15)
[2020-06-22] MEDS: ALBUTEROL SULF 2.5 MG/0.5ML(0.5%) NEB SOLN NEB SCH ×3 (06:40→18:15)
[2020-06-22] MEDS: Glucerna Carbsteady SHAKE Vanilla 8oz PO SCH ×2 (08:05→18:05)
[2020-06-22 08:15] LABS: Albumin 2.6 g/dL (3.4-5.0); Calcium 8.6 mg/dL (8.5-10.1); Potassium 4.1 mmol/L (3.5-5.1)
[2020-06-22 08:17] LABS: Bilirubin, Total 0.6 mg/dL (0.2-1.0); Total Protein 6.2 g/dL (6.4-8.2)
[2020-06-22 08:18] LABS: Basophils # (auto) 0 10 ^3/uL (0-0.2); Basophils % (auto) 0.1 % (0.0-2.0); Eosinophils # (auto) 0.1 10 ^3/uL (0-0.8); Eosinophils % (auto) 0.8 % (0.0-7.0); Hematocrit 41.7 % (41.0-53.0); Hemoglobin 13.9 g/dL (13.5-17.5); Lymphocytes % (auto) 24.5 % (10.0-50.0); Mean Corpuscular Hemoglobin 28.6 pg (28.0-32.0); Mean Corpuscular Hgb Conc. 33.3 g/dL (32.0-36.0); Mean Corpuscular Volume 85.8 fL (80.0-100.0); Monocytes # (auto) 0.5 10 ^3/uL (0-1.3); Neutrophils # (auto) 5.6 10 ^3/uL (1.6-8.6); Neutrophils % (auto) 68.6 % (37.0-80.0); Nucleated Red Blood Cells % 0.1 %; Platelet Count (auto) 128 10^3/uL (140-450); Red Blood Cells 4.86 10^6/uL (4.5-5.90); Red Cell Distribution Width 14.5 % (11.8-14.3); White Blood Cell 8.2 10^3/uL (4.4-10.8)
--- NOTE | 2020-06-22 09:03 | NUR ---
Resumed care at 0715, orders reviewed and ongoing assessments being done. Is Covid positive, isolation protocol in place. Upon arrival in bed, awake and interacting appropriately. In no acute distress with no complaints. Stand by assist out of bed to chair. Offered oral care and breakfast served. Remains on High Flow nasal cannula. Reviewed plan of care, comprehensive.
[2020-06-22] MEDS: ASCORBIC ACID 500 MG TAB PO SCH ×2 (10:20→20:11)
[2020-06-22] MEDS: POTASSIUM CHL 10 Meq TABLET PO SCH ×2 (10:20→20:11)
[2020-06-22] MEDS: CHOLECALCIFEROL (VITD3) 2,000 UNIT CAP PO SCH (10:20)
[2020-06-22] MEDS: CLOPIDOGREL BISULFATE 75 MG TAB PO SCH (10:20)
[2020-06-22] MEDS: PANTOPRAZOLE 40 MG TAB PO SCH (10:20)
[2020-06-22] MEDS: ENOXAPARIN SOD 40 MG/0.4 ML SYRINGE SC SCH (10:21)
[2020-06-22] MEDS: DexAMETHasone SOD PHOS 10MG/1ML VIAL INJ IV SCH (10:21)
[2020-06-22] MEDS: levoFLOXacin 750MG 150 ML IV SCH (10:21)
[2020-06-22] MEDS: FUROSEMIDE 20 MG TAB PO SCH (10:25)
[2020-06-22] MEDS: INSULIN LANTUS (GLARGINE) 1 /0.01ml (100units/ml) SC SCH (10:25)
--- NOTE | 2020-06-22 12:26 | NUR ---
Remains out of bed in chair. Eating lunch at this time. Earlier Angelito from physical therapy in room and provided therapy, tolerating exercises in chair. Dr. Castro rounded at noon. Remains on High Flow nasal cannula with an Fio2 of 100% and liter flow of 70.
--- NOTE | 2020-06-22 15:28 | NUR ---
Dr. Tavera, unishear operator was in earlier and rounded, continue current plan of care.
[2020-06-22] MEDS: BUDESONIDE (INHALATION) 0.5 MG/2 ML NEB NEB SCH ×2 (15:58→18:15)
--- NOTE | 2020-06-22 18:37 | NUR ---
Remains out of bed in chair, eating dinner. No episodes of acute respiratory distress. Remains on High Flow nasal cannula.
[2020-06-22] MEDS: ATORVASTATIN 20 MG TAB PO SCH (20:11)
[2020-06-23] VITALS (9 sets, daily range): BP systolic 109–133; BP diastolic 40–59
[2020-06-23] MEDS: ALBUTEROL SULF 2.5 MG/0.5ML(0.5%) NEB SOLN NEB SCH ×3 (02:21→18:54)
[2020-06-23] MEDS: IPRATROPIUM BROM 0.5 MG/2.5ML INH SOL NEB SCH ×3 (02:21→18:54)
[2020-06-23] MEDS: ACCU-CHEK COMFORT CURVE STRIP VI SCH ×4 (05:49→21:24)
[2020-06-23] MEDS: InsuLIN REG 1unit/0.01ml Soln (100units/ml) SC SCH ×4 (05:52→21:24)
--- NOTE | 2020-06-23 07:00 | NUR ---
Report from smith WINTER , Kvng Patient in bed. High Flow, positive for COVID 19. Patient is unable to prone self. Patient in no signs of distress. RR 30 SPO2 88% HR 66 and BP 126/51. patient up to chair for breakfast. Bedside commode and urinal. Will continue to monitor.
[2020-06-23] MEDS: BUDESONIDE (INHALATION) 0.5 MG/2 ML NEB NEB SCH ×2 (07:49→18:54)
[2020-06-23] MEDS: Glucerna Carbsteady SHAKE Vanilla 8oz PO SCH ×2 (08:00→18:00)
--- NOTE | 2020-06-23 08:00 | NUR ---
Patient up to chair. Eating breakfast. In no signs of distress. Discussed plan of care, all questions answered.
[2020-06-23] MEDS: metFORMIN HYDROCHLORIDE 500 MG TAB PO SCH (08:42)
--- NOTE | 2020-06-23 09:20 | NUR ---
RN bedside patient up to bedside commode with assistance. Patient had large soft brown/orange BM.
[2020-06-23] MEDS: INSULIN LANTUS (GLARGINE) 1 /0.01ml (100units/ml) SC SCH (10:00)
--- NOTE | 2020-06-23 10:20 | NUR ---
Patient up to chair. Patient in no signs of distress. On High Flow NC , SPO2 88%.
[2020-06-23] MEDS: PANTOPRAZOLE 40 MG TAB PO SCH (10:31)
[2020-06-23] MEDS: CHOLECALCIFEROL (VITD3) 2,000 UNIT CAP PO SCH (10:31)
[2020-06-23] MEDS: ASCORBIC ACID 500 MG TAB PO SCH ×2 (10:31→21:23)
[2020-06-23] MEDS: levoFLOXacin 750MG 150 ML IV SCH (10:31)
[2020-06-23] MEDS: DexAMETHasone SOD PHOS 10MG/1ML VIAL INJ IV SCH (10:31)
[2020-06-23] MEDS: FUROSEMIDE 20 MG TAB PO SCH (10:32)
[2020-06-23] MEDS: POTASSIUM CHL 10 Meq TABLET PO SCH ×2 (10:32→21:23)
[2020-06-23] MEDS: ENOXAPARIN SOD 40 MG/0.4 ML SYRINGE SC SCH (10:34)
--- NOTE | 2020-06-23 12:40 | NUR ---
RN bedside . Patient up to chair eating lunch. No signs of distress.
[2020-06-23] MEDS: CLOPIDOGREL BISULFATE 75 MG TAB PO SCH (13:17)
--- NOTE | 2020-06-23 13:50 | NUR ---
RN bedside. Oral hygiene completed. Up to chair.
--- NOTE | 2020-06-23 15:20 | NUR ---
RN bedside. Patient up to chair. Bedding changed.
--- NOTE | 2020-06-23 17:45 | NUR ---
RN bedside. Patient up to chair eating. Discussion regarding disease process and where he stands. All question answered.
--- NOTE | 2020-06-23 17:59 | NUR ---
END OF SHIFT Patient up to chair all day. AO x4, no signs of distress, pain 0/10. On high flow 40L 80%. Last blood sugar check 328, 12 units given. Patient would like some adjustments with high flow strap in order to sleep and some changes in bedding so he does not get wrapped in blankets. Patient had 2 large BM, urine output 875 ml, intake 650 ml/
--- NOTE | 2020-06-23 19:33 | NUR ---
Report to MOY White
--- NOTE | 2020-06-23 20:00 | NUR ---
SHIFT OPENING NOTE RECEIVED PATIENT AWAKE, ALERT AND ORIENTED X4. NO SOB, DISTRESS OR PAIN NOTED. ON HIGH FLOW NC 40L, 80% FI02. POX 95%. PHYSICAL ASSESSMENT COMPLETED, SEE INTERVENTIONS. INSTRUCTED ON POC AND TO CALL FOR ASSIST NEEDED. BED IS IN THE LOWEST POSITION WITH SIDE RAILS UP X2, CALL LIGHT IS WITHIN REACH.
[2020-06-23] MEDS: ATORVASTATIN 20 MG TAB PO SCH (21:23)
[2020-06-24] VITALS (10 sets, daily range): BP systolic 127–131; BP diastolic 46–83
--- NOTE | 2020-06-24 02:00 | NUR ---
ROUNDS PATIENT QUIETLY LUIS IN BED SLEEPING. NO SOB, DISTRESS OR PAIN NOTED. REMAINS ON HIGH FLOW SAME SETTINGS. WILL CONTINUE TO CLOSELY MONITOR.
[2020-06-24] MEDS: IPRATROPIUM BROM 0.5 MG/2.5ML INH SOL NEB SCH ×5 (02:11→23:38)
[2020-06-24] MEDS: ALBUTEROL SULF 2.5 MG/0.5ML(0.5%) NEB SOLN NEB SCH ×5 (02:11→23:38)
[2020-06-24] MEDS: InsuLIN REG 1unit/0.01ml Soln (100units/ml) SC SCH ×4 (05:53→22:28)
[2020-06-24] MEDS: ACCU-CHEK COMFORT CURVE STRIP VI SCH ×4 (05:53→22:25)
[2020-06-24] MEDS: BUDESONIDE (INHALATION) 0.5 MG/2 ML NEB NEB SCH ×2 (06:10→19:20)
--- NOTE | 2020-06-24 07:03 | NUR ---
END OF SHIFT REPORT GIVEN AND CARE ENDORSED TO CHA WINTER.
--- NOTE | 2020-06-24 07:45 | NUR ---
Patient up to chair for breakfast. Patient in no signs of distress. On High Flow NC at 40L/80% fio2 , SPO2 92%.
[2020-06-24] MEDS: Glucerna Carbsteady SHAKE Vanilla 8oz PO SCH (07:49)
[2020-06-24] MEDS: metFORMIN HYDROCHLORIDE 500 MG TAB PO SCH (07:57)
[2020-06-24] MEDS: CHOLECALCIFEROL (VITD3) 2,000 UNIT CAP PO SCH (10:00)
[2020-06-24] MEDS: INSULIN LANTUS (GLARGINE) 1 /0.01ml (100units/ml) SC SCH (10:00)
[2020-06-24] MEDS: PANTOPRAZOLE 40 MG TAB PO SCH (10:00)
[2020-06-24] MEDS: ENOXAPARIN SOD 40 MG/0.4 ML SYRINGE SC SCH (10:00)
[2020-06-24] MEDS: POTASSIUM CHL 10 Meq TABLET PO SCH ×2 (10:00→22:08)
[2020-06-24] MEDS: CLOPIDOGREL BISULFATE 75 MG TAB PO SCH (10:00)
[2020-06-24] MEDS: FUROSEMIDE 20 MG TAB PO SCH (10:00)
[2020-06-24] MEDS: DexAMETHasone SOD PHOS 10MG/1ML VIAL INJ IV SCH (10:00)
[2020-06-24] MEDS: ASCORBIC ACID 500 MG TAB PO SCH ×2 (10:00→22:08)
--- NOTE | 2020-06-24 12:58 | NUR ---
Nutrition Followup Wt 76.0 kg Pt in isolation room COVID +ve. Pt is with a CCHO 45g soft diet with Glucerna 1 carton BID with adequte Po of 100% x 6 per RN doc Est energy needs 9769-9584 kcal (20-25 kcal/kg BW 83.3kg) Est protein needs 66-83g (0.8-1g/kg BW 83.3kg) Will reassess prn. . Labs: No new labs today POC GLU 252 H BM: Pt had 1 BM 06/21 per RN note Skin: BS 17 mod risk, full details in weekend caregiver note PES: 1) Altered nutrition related lab values aeb hyperglycemia, hypoalb r/t current/chronic medical condition Comments: Will continue to monitor PO status, skin status, pertinent labs and weight trends. Will f/u in 3-5 days. Rec: 1) Consider CCHO 60 gm as needs are higher. 2) refer pt to OPD on DC 3) Continue current plan of care
[2020-06-24] MEDS: ATORVASTATIN 20 MG TAB PO SCH (22:08)
--- NOTE | 2020-06-24 22:09 | NUR ---
Rtn scheduled medications given. See e-MAR.
--- NOTE | 2020-06-24 22:20 | NUR ---
Accucheck 269 mg/dl. Patient covered with Regular Insulin 4 units per SS.
[2020-06-25] VITALS (7 sets, daily range): BP systolic 118–133; BP diastolic 46–67
--- NOTE | 2020-06-25 02:52 | NUR ---
Artificial Leather Calender Operator at bedside. Blood collected and specimens sent to lab.
[2020-06-25 03:33] LABS: Basophils # (auto) 0 10 ^3/uL (0-0.2); Basophils % (auto) 0.2 % (0.0-2.0); Eosinophils # (auto) 0 10 ^3/uL (0-0.8); Eosinophils % (auto) 0.1 % (0.0-7.0); Hemoglobin 12.7 g/dL (13.5-17.5); Lymphocytes # (auto) 1.6 10 ^3/uL (0.4-5.4); Lymphocytes % (auto) 21.3 % (10.0-50.0); Mean Corpuscular Hemoglobin 29.2 pg (28.0-32.0); Mean Corpuscular Hgb Conc. 34.4 g/dL (32.0-36.0); Mean Corpuscular Volume 84.9 fL (80.0-100.0); Monocytes # (auto) 0.4 10 ^3/uL (0-1.3); Monocytes % (auto) 5.7 % (0.0-12.0); Neutrophils # (auto) 5.5 10 ^3/uL (1.6-8.6); Neutrophils % (auto) 72.7 % (37.0-80.0); Nucleated Red Blood Cells % 0.1 %; Platelet Count (auto) 108 10^3/uL (140-450); Red Blood Cells 4.35 10^6/uL (4.5-5.90); Red Cell Distribution Width 14.3 % (11.8-14.3); White Blood Cell 7.6 10^3/uL (4.4-10.8)
[2020-06-25 03:52] LABS: BUN/Creatinine Ratio 28.7; Calcium 8.4 mg/dL (8.5-10.1); Potassium 4.3 mmol/L (3.5-5.1)
[2020-06-25] MEDS: BUDESONIDE (INHALATION) 0.5 MG/2 ML NEB NEB SCH ×2 (06:06→22:32)
[2020-06-25] MEDS: ALBUTEROL SULF 2.5 MG/0.5ML(0.5%) NEB SOLN NEB SCH ×3 (06:06→22:33)
[2020-06-25] MEDS: IPRATROPIUM BROM 0.5 MG/2.5ML INH SOL NEB SCH ×3 (06:06→22:32)
[2020-06-25] MEDS: ACCU-CHEK COMFORT CURVE STRIP VI SCH ×4 (06:47→22:20)
[2020-06-25] MEDS: InsuLIN REG 1unit/0.01ml Soln (100units/ml) SC SCH ×4 (06:57→22:21)
--- NOTE | 2020-06-25 07:01 | NUR ---
Accucheck 221 mg/dl. Patient covered with Regular Insulin 6 units SQ.
[2020-06-25] MEDS: Glucerna Carbsteady SHAKE Vanilla 8oz PO SCH ×3 (09:20→19:24)
[2020-06-25] MEDS: metFORMIN HYDROCHLORIDE 500 MG TAB PO SCH (09:20)
[2020-06-25] MEDS: POTASSIUM CHL 10 Meq TABLET PO SCH ×2 (10:45→22:19)
[2020-06-25] MEDS: DexAMETHasone SOD PHOS 10MG/1ML VIAL INJ IV SCH (10:45)
[2020-06-25] MEDS: FUROSEMIDE 20 MG TAB PO SCH (10:46)
[2020-06-25] MEDS: CLOPIDOGREL BISULFATE 75 MG TAB PO SCH (10:47)
[2020-06-25] MEDS: PANTOPRAZOLE 40 MG TAB PO SCH (10:47)
[2020-06-25] MEDS: CHOLECALCIFEROL (VITD3) 2,000 UNIT CAP PO SCH (10:48)
[2020-06-25] MEDS: ENOXAPARIN SOD 40 MG/0.4 ML SYRINGE SC SCH (10:48)
[2020-06-25] MEDS: ASCORBIC ACID 500 MG TAB PO SCH ×2 (10:48→22:19)
[2020-06-25] MEDS: INSULIN LANTUS (GLARGINE) 1 /0.01ml (100units/ml) SC SCH (10:49)
[2020-06-25] MEDS ORDERED: FUROSEMIDE 40 MG/4 ML VIAL IV ONE (12:15)
[2020-06-25] MEDS ORDERED: ALBUTEROL SULF 2.5 MG/0.5ML(0.5%) NEB SOLN ONE (13:43)
[2020-06-25] MEDS ORDERED: IPRATROPIUM BROM 0.5 MG/2.5ML INH SOL ONE (13:43)
--- NOTE | 2020-06-25 14:00 | NUR ---
Respiratory note: TITRATED FIO2 TO 65%. RN FELICIANO DAVID
[2020-06-25] MEDS: INSULIN 70/30 1unit/0.01ml Susp (100units/ml) SC SCH (17:40)
--- NOTE | 2020-06-25 19:10 | NUR ---
Report received from MOY Watson. Will continue with POC; and, will continue to monitor VS & clinical status.
--- NOTE | 2020-06-25 22:00 | NUR ---
Rtn scheduled medications given. See e-MAR. Accucheck 260 mg/dl. Patient covered with Regular Insulin 6 units SQ per SS.
[2020-06-25] MEDS: ATORVASTATIN 20 MG TAB PO SCH (22:19)
[2020-06-26] VITALS: BP 121/52
--- NOTE | 2020-06-26 03:49 | NUR ---
PCXR done at bedside.
[2020-06-26 04:00] VITALS: BP 113/51
[2020-06-26] MEDS: ACCU-CHEK COMFORT CURVE STRIP VI SCH ×4 (05:34→22:01)
--- NOTE | 2020-06-26 05:35 | NUR ---
Juan Luiseck 226 mg/dl. Will cover patient with Regular Insulin 6 units SQ. Addendum: 06/26/20 at 0546 by Miguel Yang RN CORRECTION: Accuecheck 235 mg/dl.
[2020-06-26] MEDS: InsuLIN REG 1unit/0.01ml Soln (100units/ml) SC SCH ×4 (06:04→22:04)
--- NOTE | 2020-06-26 06:06 | NUR ---
Patient covered with Regular Insulin 6 units SQ per SS.
[2020-06-26] MEDS: IPRATROPIUM BROM 0.5 MG/2.5ML INH SOL NEB SCH ×3 (06:58→23:51)
[2020-06-26] MEDS: ALBUTEROL SULF 2.5 MG/0.5ML(0.5%) NEB SOLN NEB SCH ×3 (06:58→23:51)
[2020-06-26] MEDS: BUDESONIDE (INHALATION) 0.5 MG/2 ML NEB NEB SCH ×2 (06:58→23:51)
[2020-06-26] MEDS: Glucerna Carbsteady SHAKE Vanilla 8oz PO SCH ×2 (09:04→18:05)
[2020-06-26] MEDS: FUROSEMIDE 40 MG/4 ML VIAL IV SCH (09:05)
[2020-06-26] MEDS: PANTOPRAZOLE 40 MG TAB PO SCH (09:05)
[2020-06-26] MEDS: CLOPIDOGREL BISULFATE 75 MG TAB PO SCH (09:05)
[2020-06-26] MEDS: POTASSIUM CHL 10 Meq TABLET PO SCH ×2 (09:05→22:00)
[2020-06-26] MEDS: ENOXAPARIN SOD 40 MG/0.4 ML SYRINGE SC SCH ×2 (09:06→22:01)
[2020-06-26] MEDS: ASCORBIC ACID 500 MG TAB PO SCH ×2 (09:06→22:01)
[2020-06-26] MEDS: CHOLECALCIFEROL (VITD3) 2,000 UNIT CAP PO SCH (09:06)
[2020-06-26] MEDS: INSULIN 70/30 1unit/0.01ml Susp (100units/ml) SC SCH ×2 (09:08→19:13)
--- NOTE | 2020-06-26 10:00 | NUR ---
PT UP TO CHAIR NO DISTRESS NOTED. POX CONNECTED AND CALL LIGHT WITHIN REACH.
[2020-06-26 13:20] VITALS: BP 123/55
--- NOTE | 2020-06-26 13:20 | NUR ---
PT WATCHING TV NO DISTRESS. PT ASKING FOR HELP LOOKING FOR FOOTBALL GAME.
--- NOTE | 2020-06-26 14:43 | NUR ---
Nutrition Followup Wt 75.6 kg Pt in isolation room COVID +ve. Pt is a consult today for new DM. Attempted to call pt's room phone x 3 with no answer. Provided pt with diabetic education in discharge paperwork. Pt is with a CCHo 45g diet with 100% po intake x 2 days per Rn note. Pt is also with Glucerna 1 carton BID Est energy needs 5180-0835 kcal (20-25 kcal/kg BW 83.3kg) Est protein needs 66-83g (0.8-1g/kg BW 83.3kg) Will reassess prn. . Labs: GLUC 143H, Alb 2.6L, Ca 8.4L, BUN 25H BM: Pt had 1 BM 06/26 per RN note Skin: BS 17 mod risk, full details in caretaker note PES: 1) Altered nutrition related lab values aeb hyperglycemia, hypoalb r/t current/chronic medical condition Comments: Will continue to monitor PO status, skin status, pertinent labs and weight trends. Will f/u in 3-5 days. Rec: 1) Consider CCHO 60 gm as needs are higher. 2) refer pt to OPD on DC 3) Continue current plan of care
--- NOTE | 2020-06-26 19:42 | NUR ---
ASSISTED TO COMMODE PT AMBULATES WITH STANDBY ASSISTANCE. FAIR GAIT. CALL LIGHT GIVEN AND INFORMED TO CALL WHEN DONE FOR SAFETY.
[2020-06-26 20:00] VITALS: BP 124/52
--- NOTE | 2020-06-26 20:00 | NUR ---
SHIFT OPENING NOTE RECEIVED PATIENT AWAKE, ALERT AND ORIENTED X4. NO SOB, DISTRESS OR PAIN NOTED. ON HIGH FLOW NC 40 L, 65% FI02 POX 94%. PHYSICAL ASSESSMENT COMPLETED, SEE INTERVENTIONS. INSTRUCTED ON POC AND TO CALL FOR ASSIST NEEDED. BED IS IN THE LOWEST POSITION WITH SIDE RAILS UP X2, CALL LIGHT IS WITHIN REACH.
[2020-06-26] MEDS: ATORVASTATIN 20 MG TAB PO SCH (22:00)
[2020-06-27] VITALS (8 sets, daily range): BP systolic 105–132; BP diastolic 52–60
--- NOTE | 2020-06-27 05:30 | NUR ---
PATIENT REFUSED HYGIENE CARE AT THIS TIME SAID HE WILL DO IT LATER
[2020-06-27] MEDS: InsuLIN REG 1unit/0.01ml Soln (100units/ml) SC SCH ×4 (05:37→21:08)
[2020-06-27] MEDS: ACCU-CHEK COMFORT CURVE STRIP VI SCH ×4 (05:37→21:08)
[2020-06-27] MEDS: IPRATROPIUM BROM 0.5 MG/2.5ML INH SOL NEB SCH ×3 (06:28→22:02)
[2020-06-27] MEDS: ALBUTEROL SULF 2.5 MG/0.5ML(0.5%) NEB SOLN NEB SCH ×3 (06:28→22:02)
[2020-06-27] MEDS: BUDESONIDE (INHALATION) 0.5 MG/2 ML NEB NEB SCH ×2 (06:29→22:02)
--- NOTE | 2020-06-27 07:12 | NUR ---
END OF SHIFT REPORT GIVEN AND CARE ENDORSED TO DINA WINTER.
--- NOTE | 2020-06-27 07:20 | NUR ---
REPORT OBTAINED COVID PRECAUTIONS IN PLACE AND PATIENT SEEN FROM WINDOW DUE TO PRECAUTIONS. PATIENT SITTING IN CHAIR AT THIS TIME. UNLABORED BREATHING, NO DISTRESS NOTED. REMAINS ON HIGH FLOW, VSS. CALL LIGHT AT REACH. PLAN OF CARE REVIEWED.
[2020-06-27] MEDS: Glucerna Carbsteady SHAKE Vanilla 8oz PO SCH ×2 (07:58→18:08)
[2020-06-27] MEDS: INSULIN 70/30 1unit/0.01ml Susp (100units/ml) SC SCH ×2 (08:00→21:08)
[2020-06-27] MEDS: ENOXAPARIN SOD 40 MG/0.4 ML SYRINGE SC SCH ×2 (08:56→21:07)
[2020-06-27] MEDS: CLOPIDOGREL BISULFATE 75 MG TAB PO SCH (08:56)
[2020-06-27] MEDS: PANTOPRAZOLE 40 MG TAB PO SCH (08:56)
[2020-06-27] MEDS: POTASSIUM CHL 10 Meq TABLET PO SCH ×2 (08:56→21:07)
[2020-06-27] MEDS: CHOLECALCIFEROL (VITD3) 2,000 UNIT CAP PO SCH (08:57)
[2020-06-27] MEDS: FUROSEMIDE 40 MG/4 ML VIAL IV SCH (08:57)
[2020-06-27] MEDS: ASCORBIC ACID 500 MG TAB PO SCH ×2 (08:57→21:07)
--- NOTE | 2020-06-27 09:00 | NUR ---
NUTRITION PATIENT ATE 100% OF BREAKFAST WITHOUT DIFFICULTY.
--- NOTE | 2020-06-27 10:00 | NUR ---
PATIENT ABLE TO RETURN PROPER DEMONSTRATION ON I.S USE. PATIENT REACHING 1000ML DURING INSPIRATION. PATIENT AWARE TO USE DEVICE 10X EVERY HR WHEN AWAKE.
--- NOTE | 2020-06-27 11:57 | NUR ---
DR. LOPEZ UPDATE ON PATIENTS STATUS. SEE NEW ORDERS.
--- NOTE | 2020-06-27 11:58 | NUR ---
PALAEONTOLOGIST AT BEDSIDE MD UPDATED PATIENT ON PLAN OF CARE AND CURRENT CONDITION. SEE MD NOTES/ORDERS.
[2020-06-27 12:09] LABS: Basophils # (auto) 0 10 ^3/uL (0-0.2); Basophils % (auto) 0.4 % (0.0-2.0); Eosinophils # (auto) 0.1 10 ^3/uL (0-0.8); Eosinophils % (auto) 1.6 % (0.0-7.0); Hematocrit 43.1 % (41.0-53.0); Hemoglobin 14.8 g/dL (13.5-17.5); Lymphocytes # (auto) 1.4 10 ^3/uL (0.4-5.4); Lymphocytes % (auto) 15.4 % (10.0-50.0); Mean Corpuscular Hemoglobin 29.1 pg (28.0-32.0); Mean Corpuscular Hgb Conc. 34.3 g/dL (32.0-36.0); Mean Corpuscular Volume 84.7 fL (80.0-100.0); Monocytes # (auto) 0.5 10 ^3/uL (0-1.3); Neutrophils # (auto) 7.2 10 ^3/uL (1.6-8.6); Neutrophils % (auto) 77.6 % (37.0-80.0); Nucleated Red Blood Cells % 0.2 %; Platelet Count (auto) 126 10^3/uL (140-450); Red Blood Cells 5.09 10^6/uL (4.5-5.90); Red Cell Distribution Width 15.1 % (11.8-14.3); White Blood Cell 9.3 10^3/uL (4.4-10.8)
--- NOTE | 2020-06-27 12:30 | NUR ---
NUTRITION PATIENT ATE 100% INTAKE OF LUNCH INDEPENDENTLY.
--- NOTE | 2020-06-27 12:52 | NUR ---
ELIMINATION PATIENT HAD A LARGE, BROWN, SOFT BM WHILE USING BSC. SELF ANDIE-CARE PROVIDED. MINIMAL ASSISTS NEEDED DUE TO MULTIPLE WIRES.
[2020-06-27] MEDS: LACTULOSE 20Gm/30ML SOLN PO PRN (13:23)
[2020-06-27 13:31] LABS: Albumin 3.1 g/dL (3.4-5.0); Calcium 8.7 mg/dL (8.5-10.1); Potassium 3.5 mmol/L (3.5-5.1)
[2020-06-27 13:34] LABS: BUN/Creatinine Ratio 27.4; Bilirubin, Total 0.6 mg/dL (0.2-1.0)
--- NOTE | 2020-06-27 14:08 | NUR ---
PHYSICAL THERAPY AT BEDSIDE.
[2020-06-27] MEDS ORDERED: INSULIN 70/30 1unit/0.01ml Susp (100units/ml) SC SCH (18:00)
--- NOTE | 2020-06-27 20:00 | NUR ---
SHIFT OPENING NOTE RECEIVED PATIENT AWAKE, ALERT AND ORIENTED X4. NO SOB, DISTRESS OR PAIN NOTED. ON HIGH FLOW NC 40 L, 65% FI02 POX 90%. PHYSICAL ASSESSMENT COMPLETED, SEE INTERVENTIONS. INSTRUCTED ON POC AND TO CALL FOR ASSIST NEEDED. BED IS IN THE LOWEST POSITION WITH SIDE RAILS UP X2, CALL LIGHT IS WITHIN REACH.
[2020-06-27] MEDS: ATORVASTATIN 20 MG TAB PO SCH (21:07)
[2020-06-28] VITALS (10 sets, daily range): BP systolic 111–141; BP diastolic 48–61
--- NOTE | 2020-06-28 03:00 | NUR ---
ROUNDS PATIENT IS QUIETLY LAYING IN BED SLEEPING. NO SOB, DISTRESS OR PAIN NOTED. REMAINS ON HIGH FLOW. POX 94%. WILL CONTINUE TO CLOSELY MONITOR.
[2020-06-28] MEDS: ACCU-CHEK COMFORT CURVE STRIP VI SCH ×4 (06:44→21:41)
[2020-06-28] MEDS: InsuLIN REG 1unit/0.01ml Soln (100units/ml) SC SCH ×4 (06:44→21:13)
--- NOTE | 2020-06-28 06:53 | NUR ---
END OF SHIFT REPORT GIVEN AND CARE ENDORSED TO DINA WINTER.
--- NOTE | 2020-06-28 07:11 | NUR ---
REPORT OBTAINED COVID PRECAUTIONS IN PLACE AND PATIENT SEEN FROM WINDOW DUE TO COVID PRECAUTIONS. PATIENT IN BED IN SEMI FOWLERS AT THIS TIME. UNLABORED BREATHING, NO DISTRESS NOTED. REMAINS ON HIGH FLOW, VSS. CALL LIGHT AT REACH.
[2020-06-28] MEDS: IPRATROPIUM BROM 0.5 MG/2.5ML INH SOL NEB SCH ×3 (07:25→22:22)
[2020-06-28] MEDS: ALBUTEROL SULF 2.5 MG/0.5ML(0.5%) NEB SOLN NEB SCH ×3 (07:25→22:22)
[2020-06-28] MEDS: BUDESONIDE (INHALATION) 0.5 MG/2 ML NEB NEB SCH ×2 (07:25→22:22)
[2020-06-28] MEDS: FUROSEMIDE 40 MG/4 ML VIAL IV SCH (07:37)
[2020-06-28] MEDS: CHOLECALCIFEROL (VITD3) 2,000 UNIT CAP PO SCH (07:37)
[2020-06-28] MEDS: Glucerna Carbsteady SHAKE Vanilla 8oz PO SCH ×2 (07:38→17:56)
[2020-06-28] MEDS: ASCORBIC ACID 500 MG TAB PO SCH ×2 (07:38→21:40)
[2020-06-28] MEDS: POTASSIUM CHL 10 Meq TABLET PO SCH ×2 (07:38→21:38)
[2020-06-28] MEDS: CLOPIDOGREL BISULFATE 75 MG TAB PO SCH (07:38)
[2020-06-28] MEDS: ENOXAPARIN SOD 40 MG/0.4 ML SYRINGE SC SCH ×2 (07:38→21:41)
[2020-06-28] MEDS: INSULIN 70/30 1unit/0.01ml Susp (100units/ml) SC SCH ×2 (08:50→21:40)
--- NOTE | 2020-06-28 09:30 | NUR ---
NUTRITION PATIENT ATE 100% OF BREAKFAST WITHOUT DIFFICULTY.
--- NOTE | 2020-06-28 11:57 | NUR ---
Physical therapy at bedside
--- NOTE | 2020-06-28 12:30 | NUR ---
NUTRITION PATIENT ATE 100% OF LUNCH TRAY WITHOUT DIFFICULTY.
--- NOTE | 2020-06-28 13:10 | NUR ---
IN HOUSE LEYLA COMPLETED AND WALKED OVER TO LAB BY CCT.
--- NOTE | 2020-06-28 14:00 | NUR ---
ELIMINATION PATIENT TRANSFERRED FROM BED TO BSC USING STANDBY ASSISTANCE DUE TO MULTIPLE WIRES. PATIENT HAD A MODERATE, SOFT, BROWN BM MIXED WITH URINE. SELF ANDIE CARE PROVIDED. PATIENT THEN TRANSFERRED BACK TO CHAIR. POX REMAINED GREATER THAN 90% DURING ACTIVITY.
--- NOTE | 2020-06-28 14:30 | NUR ---
CANE FEEDER AT BEDSIDE DR. FIERRO AT BEDSIDE. FI02 TITRATED TO 55% AT 40L VIA HIGH FLOW. POX REMAINED AT 92-93%. R.T TO BE NOTIFIED.
--- NOTE | 2020-06-28 16:26 | NUR ---
DYSRHYTHMIA FLAKE MILLER [employer] AND [employer]ATS NOTIFIED OF FREQUENT ECTOPY. NEW ORDER IN PLACE FOR LIFE VEST. Addendum: 06/28/20 at 1632 by Tierra Rodriguez RN *WRONG PATIENT
[2020-06-28] MEDS: PANTOPRAZOLE 40 MG TAB PO SCH (17:58)
--- NOTE | 2020-06-28 18:21 | NUR ---
PATIENT STATUS PATIENT TOLERATING 40L/55% HIGH FLOW, POX HAS REMAINED 92-95%.
--- NOTE | 2020-06-28 20:00 | NUR ---
WAS ORIGINALLY GENERAL WEAKNESS, COUGH, FEVER. DIAGNOSIS COVID PNEUMONIA. DR LOPEZ PRIMARY. PAIN MANAGEMENT SPECIALIST : DR FIERRO. ADMITTED 06/08. GRADUAL PROGRESS. ON HIGH FLOW 40LITERS/55%. PT WORKING WITH THE PATIENT WALKING AND ROM. SLIGHTLY HARD OF HEARING. SPENDS THE DAY IN THE CHAIR. HE HAS PREVIOUSLY REFUSED TO PRONE. NSR WITH OCCASIONAL PACS. ORDER FOR LIFE VEST IN. HAS HAD REMDESIVIR AND ONE UNIT OF CONVALESCENT PLASMA. ACCUCHECKS AC HS. DENIES PAIN. NO EDEMA. NA 133.
--- NOTE | 2020-06-28 21:30 | NUR ---
ALERT. ORIENTED. STATES THAT HIS MENTAL CAPACITY IS NOT QUITE BACK TO NORMAL. LIKES TO PLAY A WORD GAME ONLINE AND STATES THAT HE IS UNABLE TO DO IT. SPEECH IS CLEAR. LARA. LUNGS CLEAR AND DIMINISHED. ABDOMEN ROUND AND SOFT. HAS A MIDLINE FAIZA. MIDLINE FLUSHED WITH NORMAL SALINE AND CLAMPED. ALL PULSES PALPABLE. NO EDEMA. SWALLOWS PILLS WELL. COVERED THE ACCUCHECK WITH REGULAR INSULIN AND ALSO GAVE HIM HIS SCHEDULED 70/30. NO SKIN ISSUES. VSS. OCCASIONAL PACS. AWARE THAT HIS COVID TEST TODAY WAS NEGATIVE.
[2020-06-28] MEDS: ATORVASTATIN 20 MG TAB PO SCH (21:39)
[2020-06-29] VITALS (10 sets, daily range): BP systolic 115–130; BP diastolic 50–60
--- NOTE | 2020-06-29 | NUR ---
ASLEEP ENTERING ROOM. NO CHANGE IN HIGH FLOW SETTINGS. NO DYSPNEA. LUNGS CLEAR. VOIDED X 1 IN URINAL. NSR WITHOUT ECTOPY
[2020-06-29 02:54] LABS: Basophils # (auto) 0.1 10 ^3/uL (0-0.2); Basophils % (auto) 1.2 % (0.0-2.0); Eosinophils # (auto) 0.1 10 ^3/uL (0-0.8); Eosinophils % (auto) 1.9 % (0.0-7.0); Hematocrit 37.2 % (41.0-53.0); Hemoglobin 12.9 g/dL (13.5-17.5); Lymphocytes # (auto) 1.4 10 ^3/uL (0.4-5.4); Lymphocytes % (auto) 22.3 % (10.0-50.0); Mean Corpuscular Hemoglobin 29.7 pg (28.0-32.0); Mean Corpuscular Hgb Conc. 34.7 g/dL (32.0-36.0); Mean Corpuscular Volume 85.5 fL (80.0-100.0); Monocytes # (auto) 0.4 10 ^3/uL (0-1.3); Monocytes % (auto) 5.6 % (0.0-12.0); Neutrophils # (auto) 4.4 10 ^3/uL (1.6-8.6); Nucleated Red Blood Cells % 0.1 %; Platelet Count (auto) 99 10^3/uL (140-450); Red Blood Cells 4.35 10^6/uL (4.5-5.90); Red Cell Distribution Width 14.6 % (11.8-14.3); White Blood Cell 6.4 10^3/uL (4.4-10.8)
[2020-06-29 03:13] LABS: Potassium 3.8 mmol/L (3.5-5.1)
[2020-06-29 03:17] LABS: BUN/Creatinine Ratio 20.4; Calcium 8.2 mg/dL (8.5-10.1)
--- NOTE | 2020-06-29 05:00 | NUR ---
MIDLINE DRESSING CHANGE. REFUSED A BATH. WATCHING TV. NO CHANGE IN OXYGEN REQUIREMENTS. REMAINS ON 40L/55%. COARSE COUGH. NONPRODUCTIVE. STATES THAT IT IS JUST PHLEGM. LUNGS CLEAR AND DIMINISHED. VOIDED TWICE THIS SHIFT TOTALING 600CC . SPEECH IS CLEAR. STATES THAT HE IS TIRED AND YET SEES THE LIGHT AT THE END OF THE TUNNEL.
[2020-06-29] MEDS: ACCU-CHEK COMFORT CURVE STRIP VI SCH ×4 (06:25→21:17)
[2020-06-29] MEDS: InsuLIN REG 1unit/0.01ml Soln (100units/ml) SC SCH ×4 (06:26→21:14)
[2020-06-29] MEDS: ALBUTEROL SULF 2.5 MG/0.5ML(0.5%) NEB SOLN NEB SCH ×3 (07:18→22:02)
[2020-06-29] MEDS: BUDESONIDE (INHALATION) 0.5 MG/2 ML NEB NEB SCH ×2 (07:19→22:02)
[2020-06-29] MEDS: IPRATROPIUM BROM 0.5 MG/2.5ML INH SOL NEB SCH ×3 (07:19→22:02)
--- NOTE | 2020-06-29 07:45 | NUR ---
OPENING SHIFT NOTE Received report from NOC RNBrigitte. Assumed care of patient. Received patient in bed, connected to bedside monitor with alarms in place. Patient is currently on Novel Respiratory Isolation for COVID-19. Patient is A&Ox4, denies pain and has no s/s of distress noted. Patient is on High Flow Oxygen 40L 55% fiO2 with O2 sats in the mid 90s. Patient with right arm midline, port flushes and is patent. Patient voiding via urinal. Bed in lowest position, rails x2 up and call light within reach. Updated on plan of care. Will continue to monitor.
[2020-06-29] MEDS: Glucerna Carbsteady SHAKE Vanilla 8oz PO SCH ×2 (08:24→17:36)
[2020-06-29] MEDS: ASCORBIC ACID 500 MG TAB PO SCH ×2 (09:54→21:17)
[2020-06-29] MEDS: CHOLECALCIFEROL (VITD3) 2,000 UNIT CAP PO SCH (09:54)
[2020-06-29] MEDS: FUROSEMIDE 40 MG/4 ML VIAL IV SCH (09:54)
[2020-06-29] MEDS: POTASSIUM CHL 10 Meq TABLET PO SCH (09:54)
[2020-06-29] MEDS: PANTOPRAZOLE 40 MG TAB PO SCH (09:54)
[2020-06-29] MEDS: ENOXAPARIN SOD 40 MG/0.4 ML SYRINGE SC SCH ×2 (09:54→21:17)
[2020-06-29] MEDS: CLOPIDOGREL BISULFATE 75 MG TAB PO SCH (09:55)
[2020-06-29] MEDS: INSULIN 70/30 1unit/0.01ml Susp (100units/ml) SC SCH ×2 (10:20→21:15)
--- NOTE | 2020-06-29 14:47 | NUR ---
Nutrition Followup Wt 74.4 kg Pt in isolation room COVID +ve. Pt was awake, sitting up doing breathing exercise when rounded this morning. Per RN, pt is doing well. Pt is with a CCHO 45g diet with 100% PO intake per RN note. Pt is also with Glucerna 1 carton BID Est energy needs 4051-9321 kcal (20-25 kcal/kg BW 83.3kg) Est protein needs 66-83g (0.8-1g/kg BW 83.3kg) Will reassess prn. . Labs: GLUC 217H, Alb 2.6L, Ca 8.2L, BUN 20H, Alb 3.1L BM: Pt had 1 BM 06/28 per RN note Skin: BS 21 low risk, full details in managed care director note PES: 1) Altered nutrition related lab values aeb hyperglycemia, hypoalb r/t current/chronic medical condition Comments: Will continue to monitor PO status, skin status, pertinent labs and weight trends. Will f/u in 3-5 days. Rec: 1) Consider CCHO 60g as needs are higher. 2) refer pt to OPD on DC 3 ) Continue current plan of care
--- NOTE | 2020-06-29 19:00 | NUR ---
REPORT RECEIVED REPORT FROM NURSE DINERO TO RESUME CARE OF PATIENT.
--- NOTE | 2020-06-29 19:28 | NUR ---
END OF SHIFT Report given to NOC RNRosalee. Endorsed care of patient.
[2020-06-29] MEDS: ATORVASTATIN 20 MG TAB PO SCH (21:17)
--- NOTE | 2020-06-29 23:53 | NUR ---
Opening Shift Note Assumed care of patient, awake and alert. No S/S of distress/SOB on 7L oxymizer or pain. Instructed on POC and to call for assist PRN, will continue to monitor for changes Q1hr and PRN.
[2020-06-30] VITALS: BP 130/57
[2020-06-30 04:25] VITALS: BP 129/50
[2020-06-30] MEDS: ACCU-CHEK COMFORT CURVE STRIP VI SCH ×4 (06:21→21:32)
[2020-06-30] MEDS: InsuLIN REG 1unit/0.01ml Soln (100units/ml) SC SCH ×4 (06:31→21:32)
[2020-06-30] MEDS: ALBUTEROL SULF 2.5 MG/0.5ML(0.5%) NEB SOLN NEB SCH ×3 (06:49→21:15)
[2020-06-30] MEDS: IPRATROPIUM BROM 0.5 MG/2.5ML INH SOL NEB SCH ×3 (06:49→21:16)
[2020-06-30] MEDS: BUDESONIDE (INHALATION) 0.5 MG/2 ML NEB NEB SCH ×2 (06:49→21:16)
[2020-06-30 08:00] VITALS: BP 126/59
[2020-06-30] MEDS: Glucerna Carbsteady SHAKE Vanilla 8oz PO SCH ×2 (08:00→19:01)
[2020-06-30] MEDS: POTASSIUM CHL 10 Meq TABLET PO SCH (08:54)
[2020-06-30] MEDS: CLOPIDOGREL BISULFATE 75 MG TAB PO SCH ×2 (09:04→10:00)
[2020-06-30] MEDS: ASCORBIC ACID 500 MG TAB PO SCH ×2 (09:04→21:07)
[2020-06-30] MEDS: CHOLECALCIFEROL (VITD3) 2,000 UNIT CAP PO SCH (09:04)
[2020-06-30] MEDS: FUROSEMIDE 20 MG TAB PO SCH (09:04)
[2020-06-30] MEDS: PANTOPRAZOLE 40 MG TAB PO SCH (09:04)
[2020-06-30] MEDS: INSULIN 70/30 1unit/0.01ml Susp (100units/ml) SC SCH ×2 (09:05→21:31)
[2020-06-30] MEDS: ENOXAPARIN SOD 40 MG/0.4 ML SYRINGE SC SCH ×2 (09:06→21:07)
[2020-06-30] MEDS: amLODIPine BESYLATE 5 MG TAB PO SCH (12:01)
--- NOTE | 2020-06-30 14:23 | NUR ---
PT TRANSFERRED NOW IN ROOM 297A. NO DISTRESS NOTED ON TRANSPORT. PT IN BED, CALL LIGHT WITHIN REACH AND BED LOCKED FOR SAFETY. ALL BELONGINGS WITH PT AND CHART IN UNIT. CONNECTED TO O2. INFORMED PRESS CLEANER OF PT IN ROOM.
--- NOTE | 2020-06-30 14:28 | NUR ---
TRANSFER PATIENT RECEIVED TO [facility] TELE ROOM 297A. PATIENT ALERT AND ORIENTED, DENIED PAIN NOT DISTRESS. OXYGEN 7 L OXY SATURATION 98%. INSTRUCTED PATIENT ON POC. CALL LIGHT WITHIN REACH BED ALARM ON WILL CONTINUE TO MONITOR.
[2020-06-30] MEDS: metFORMIN HYDROCHLORIDE 500 MG TAB PO SCH (19:01)
--- NOTE | 2020-06-30 20:00 | NUR ---
Opening Shift Note Assumed care of patient, awake and alert. No S/S of distress/SOB or pain. Instructed on POC and to call for assist PRN, will continue to monitor for changes Q1hr and PRN.With Oxymizer 8 liters oxygen
[2020-06-30] MEDS: ATORVASTATIN 20 MG TAB PO SCH (21:07)
[2020-06-30 22:00] VITALS: BP 130/60
[2020-07-01 01:39] VITALS: BP 130/60
[2020-07-01 05:00] VITALS: BP 127/59
[2020-07-01] MEDS: ACCU-CHEK COMFORT CURVE STRIP VI SCH ×4 (06:15→22:53)
[2020-07-01] MEDS: InsuLIN REG 1unit/0.01ml Soln (100units/ml) SC SCH ×4 (06:16→22:52)
[2020-07-01] MEDS: IPRATROPIUM BROM 0.5 MG/2.5ML INH SOL NEB SCH ×3 (06:22→22:18)
[2020-07-01] MEDS: ALBUTEROL SULF 2.5 MG/0.5ML(0.5%) NEB SOLN NEB SCH ×3 (06:22→22:18)
[2020-07-01] MEDS: BUDESONIDE (INHALATION) 0.5 MG/2 ML NEB NEB SCH ×2 (06:22→22:18)
--- NOTE | 2020-07-01 07:28 | NUR ---
Report given to Ankush Cao, patient is resting no distress.
[2020-07-01 09:00] VITALS: BP 124/54
--- NOTE | 2020-07-01 09:25 | NUR ---
Respiratory note: PT FIO2 TITRATED FROM 8L OXYMIZER, TO 6L OXYMIZER. PT TOLERATED CHANGE WELL. SPO2 92%, HR 76, RR 17, BS DIMINISHED BILATERALLY. RN AWARE. WILL CONTINUE TO MONITOR PT.
[2020-07-01] MEDS: CLOPIDOGREL BISULFATE 75 MG TAB PO SCH (09:55)
[2020-07-01] MEDS: metFORMIN HYDROCHLORIDE 500 MG TAB PO SCH ×2 (09:56→18:00)
[2020-07-01] MEDS: POTASSIUM CHL 10 Meq TABLET PO SCH (09:57)
[2020-07-01] MEDS: ASCORBIC ACID 500 MG TAB PO SCH ×2 (09:57→22:55)
[2020-07-01] MEDS: FUROSEMIDE 20 MG TAB PO SCH (09:58)
[2020-07-01] MEDS: PANTOPRAZOLE 40 MG TAB PO SCH (09:58)
[2020-07-01] MEDS: INSULIN 70/30 1unit/0.01ml Susp (100units/ml) SC SCH ×2 (10:00→22:53)
[2020-07-01] MEDS: ENOXAPARIN SOD 40 MG/0.4 ML SYRINGE SC SCH (10:05)
[2020-07-01] MEDS: Glucerna Carbsteady SHAKE Vanilla 8oz PO SCH ×2 (10:06→18:00)
--- NOTE | 2020-07-01 11:08 | NUR ---
Respiratory note: PT FIO2 TITRATED FROM 6L OXYMIZER, TO 5L NC WITH HUMIDITY ATTACHED PER DR LOPEZ ORDER. PT TOLERATED CHANGE WELL. SPO2 91%, HR 74, RR 17, BS DIMINISHED BILATERALLY. RN AWARE. WILL CONTINUE TO MONITOR PT.
[2020-07-01] MEDS: CHOLECALCIFEROL (VITD3) 1,000UNIT=25mCg TAB PO SCH (11:53)
[2020-07-01 13:00] VITALS: BP 155/62
[2020-07-01] MEDS ORDERED: IPR002IS NEB (13:43)
[2020-07-01] MEDS ORDERED: INS7030I SC (13:43)
[2020-07-01] MEDS ORDERED: CHOL20007 PO (13:43)
[2020-07-01] MEDS ORDERED: POTA-167 PO (13:43)
[2020-07-01] MEDS ORDERED: METF-370 PO (13:43)
[2020-07-01] MEDS ORDERED: ASCO500T11 PO (13:43)
[2020-07-01] MEDS ORDERED: FUR20T PO (13:43)
[2020-07-01] MEDS ORDERED: PANT40T PO (13:43)
[2020-07-01] MEDS ORDERED: ALB5IS NEB (13:43)
--- NOTE | 2020-07-01 14:08 | NUR ---
PATIENT REFUSED PT. MOY SINGLETON WHO WAS COVERING FOR MOY ZHENG WAS NOTIFIED. Addendum: 07/01/20 at 1409 by HUMAIRA GRANDA PTT Amended: Links added.
--- NOTE | 2020-07-01 14:50 | NUR ---
Respiratory note: PT BECAME EXTREMELY SOB WHEN HE WENT TO THE BATHROOM. SPO2 DECREASED TO 76%. PT PLACED ON 15L NRB. SPO2 INCREASED TO 93% AFTER 15 MINUTES. PT REMAINS ON NRB TILL HE RECOUPS. TIRE FABRIC IMPREGNATING RANGE TENDER AT BEDSIDE. WILL CONTINUE TO MONITOR PT.
--- NOTE | 2020-07-01 16:27 | NUR ---
D/C planning Per social service consult for home oxygen at 5 l/min, nebulizer and home health service for physical therapy vitals and medication management. Faxed clinical information to [facility] and [facility]. Per Raina with [facility] patient has been accepted and service to start within 24-48hrs upon d/c day. Per Yessenia with [facility] patient does not meet criteria for a nebulizer but they will deliver oxygen portable to the front lobby and concentrate oxygen to patient home. Informed , Dr. Castro.
[2020-07-01 17:00] VITALS: BP 147/58
--- NOTE | 2020-07-01 18:35 | NUR ---
PLACED PT ON 8L OXYMIZER, SAT 92%. NO SOB NOTED.
[2020-07-01] MEDS: amLODIPine BESYLATE 5 MG TAB PO SCH (18:57)
--- NOTE | 2020-07-01 19:25 | NUR ---
Opening Shift Note Assumed care of patient, awake and alert. No S/S of distress/SOB or pain. Patient on 8L O2 via Oxymizer. Patient safety measures in place bed in lowest position, side rails up x2, and call light within reach. Instructed on POC and to call for assist PRN, will continue to monitor for changes Q1hr and PRN.
--- NOTE | 2020-07-01 19:43 | NUR ---
CLOSING SUMMARY PT RESTING IN BED, STATED FEELING MUCH BETTER. NO RESPIRATORY DISTRESS NOTED. PT IS BACK ON OXIMIZER AT THIS TIME. EARLIER THIS AFTERNOON, PT BECAME VERY SOB AFTER AMBULATING TO THE BATHROOM, WITH OXYGEN. O2 SAT DROPPED DOWN IN THE 70'S. RT WAS CALLED IN AND AT BEDSIDE IMMEDIATELY. PT PLACE ON NON REBREATHER MASK. MONITORED BY RT UNTIL O2 SAT CAME BACK INTO THE 90'S ( SEE RT NOTES). PT IS INSTRUCTED TO NOT AMBULATE TO THE BATHROOM FOR NOW AND TO USE THE BSC IF NEEDED. PT VERBALIZED UNDERSTANDING.
--- NOTE | 2020-07-01 20:55 | NUR ---
Patient scheduled to receive Lovenox BID orders state to verify with physician if platelet count is lower than 100. Platelet count is 99, verified order with Hospitalist Heydi, new orders received.
[2020-07-01 22:00] VITALS: BP 106/56
[2020-07-01] MEDS: ATORVASTATIN 20 MG TAB PO SCH (22:56)
[2020-07-02 05:00] VITALS: BP 117/56
[2020-07-02] MEDS: ALBUTEROL SULF 2.5 MG/0.5ML(0.5%) NEB SOLN NEB SCH ×3 (06:23→23:16)
[2020-07-02] MEDS: IPRATROPIUM BROM 0.5 MG/2.5ML INH SOL NEB SCH ×3 (06:23→23:16)
[2020-07-02] MEDS: BUDESONIDE (INHALATION) 0.5 MG/2 ML NEB NEB SCH ×2 (06:24→23:17)
[2020-07-02] MEDS: InsuLIN REG 1unit/0.01ml Soln (100units/ml) SC SCH ×4 (06:27→21:27)
[2020-07-02] MEDS: ACCU-CHEK COMFORT CURVE STRIP VI SCH ×4 (06:30→21:28)
[2020-07-02] MEDS: Glucerna Carbsteady SHAKE Vanilla 8oz PO SCH ×2 (08:00→17:59)
[2020-07-02] MEDS: metFORMIN HYDROCHLORIDE 500 MG TAB PO SCH ×2 (08:46→17:58)
[2020-07-02 09:00] VITALS: BP 109/52
[2020-07-02] MEDS: CHOLECALCIFEROL (VITD3) 1,000UNIT=25mCg TAB PO SCH (10:03)
[2020-07-02] MEDS: ASCORBIC ACID 500 MG TAB PO SCH ×2 (10:03→21:14)
[2020-07-02] MEDS: PANTOPRAZOLE 40 MG TAB PO SCH (10:03)
[2020-07-02] MEDS: CLOPIDOGREL BISULFATE 75 MG TAB PO SCH (10:04)
[2020-07-02] MEDS: ENOXAPARIN SOD 40 MG/0.4 ML SYRINGE SC SCH (10:05)
[2020-07-02] MEDS: FUROSEMIDE 40 MG/4 ML VIAL IV SCH (10:06)
[2020-07-02] MEDS: POTASSIUM CHL 10 Meq TABLET PO SCH (10:26)
[2020-07-02] MEDS: INSULIN 70/30 1unit/0.01ml Susp (100units/ml) SC SCH ×2 (10:32→21:27)
--- NOTE | 2020-07-02 12:57 | NUR ---
Nutrition Followup Note: Wt: 76.5 kg Pt is now Covid negative sleeping with no family by bedside. pt with no distress noted currently on CCHO 45g diet with 75% PO intake per RN note. Pt is also with Glucerna 1 carton BID Est energy needs 5879-5822 kcal (20-25 kcal/kg BW 83.3kg), Est protein needs 66-83g (0.8-1g/kg BW 83.3kg). Will reassess prn. . Labs: no new labs today POC GLU 106 H BM: Pt had 1 BM 07/01 per RN note Skin: BS 21 low risk, full details in healthcare or medical note PES: 1) Altered nutrition related lab values aeb hyperglycemia, hypoalb r/t current/chronic medical condition Comments: Will continue to monitor PO status, skin status, pertinent labs and weight trends. Will f/u in 3-5 days. Rec: 1) Consider CCHO 60g as needs are higher. 2) refer pt to [facility]PD on DC 3 ) Continue current plan of care
[2020-07-02 13:00] VITALS: BP 115/63
--- NOTE | 2020-07-02 13:43 | NUR ---
Pt refused PT tx. He stated he wants to save his energy beceause he is going home today. Addendum: 07/02/20 at 1345 by Ej Chandler WORK FROM HOME Amended: Links added.
[2020-07-02] MEDS: amLODIPine BESYLATE 5 MG TAB PO SCH (17:30)
[2020-07-02 17:31] VITALS: BP 130/71
--- NOTE | 2020-07-02 19:50 | NUR ---
Opening Shift Note Assumed care of patient, asleep resting with Oxymizer oxygen 8liters. No S/S of distress/SOB or pain. Instructed on POC and to call for assist PRN, will continue to monitor for changes Q1hr and PRN.
[2020-07-02] MEDS: ATORVASTATIN 20 MG TAB PO SCH (21:14)
[2020-07-02 22:00] VITALS: BP 120/64
[2020-07-03 05:00] VITALS: BP 116/62
[2020-07-03] MEDS: ALBUTEROL SULF 2.5 MG/0.5ML(0.5%) NEB SOLN NEB SCH ×3 (05:58→21:27)
[2020-07-03] MEDS: IPRATROPIUM BROM 0.5 MG/2.5ML INH SOL NEB SCH ×3 (05:58→21:27)
[2020-07-03] MEDS: BUDESONIDE (INHALATION) 0.5 MG/2 ML NEB NEB SCH ×2 (05:59→21:27)
[2020-07-03 06:07] LABS: Basophils # (auto) 0 10 ^3/uL (0-0.2); Basophils % (auto) 0.5 % (0.0-2.0); Eosinophils # (auto) 0.2 10 ^3/uL (0-0.8); Eosinophils % (auto) 3.9 % (0.0-7.0); Hematocrit 33.4 % (41.0-53.0); Hemoglobin 11.3 g/dL (13.5-17.5); Lymphocytes # (auto) 1.2 10 ^3/uL (0.4-5.4); Lymphocytes % (auto) 21.2 % (10.0-50.0); Mean Corpuscular Hemoglobin 29.1 pg (28.0-32.0); Mean Corpuscular Volume 85.5 fL (80.0-100.0); Monocytes # (auto) 0.5 10 ^3/uL (0-1.3); Monocytes % (auto) 8.2 % (0.0-12.0); Neutrophils # (auto) 3.9 10 ^3/uL (1.6-8.6); Neutrophils % (auto) 66.2 % (37.0-80.0); Nucleated Red Blood Cells % 0.2 %; Platelet Count (auto) 141 10^3/uL (140-450); Red Cell Distribution Width 15.1 % (11.8-14.3); White Blood Cell 5.9 10^3/uL (4.4-10.8)
[2020-07-03] MEDS: ACCU-CHEK COMFORT CURVE STRIP VI SCH ×4 (06:21→22:39)
[2020-07-03 06:25] LABS: Calcium 8.6 mg/dL (8.5-10.1); Potassium 4.4 mmol/L (3.5-5.1)
[2020-07-03 06:28] LABS: BUN/Creatinine Ratio 20.2
[2020-07-03] MEDS: InsuLIN REG 1unit/0.01ml Soln (100units/ml) SC SCH ×4 (06:38→22:00)
--- NOTE | 2020-07-03 07:23 | NUR ---
Report given to Ankush Mejia, patient is resting, no respiratory distress.
--- NOTE | 2020-07-03 07:30 | NUR ---
Opening Shift Note Assumed care of patient, awake and alert. No S/S of distress/SOB or pain, on 10L oxymizer. Instructed on POC and to call for assist PRN, will continue to monitor for changes Q1hr and PRN. Bed in low and locked position, rails up x2, no-slip socks on.
[2020-07-03] MEDS: metFORMIN HYDROCHLORIDE 500 MG TAB PO SCH ×2 (07:52→17:07)
[2020-07-03] MEDS: Glucerna Carbsteady SHAKE Vanilla 8oz PO SCH ×2 (07:52→18:35)
[2020-07-03 08:47] VITALS: BP 138/61
[2020-07-03] MEDS: PANTOPRAZOLE 40 MG TAB PO SCH (09:59)
[2020-07-03] MEDS: POTASSIUM CHL 10 Meq TABLET PO SCH (10:00)
[2020-07-03] MEDS: CLOPIDOGREL BISULFATE 75 MG TAB PO SCH (10:00)
[2020-07-03] MEDS: amLODIPine BESYLATE 5 MG TAB PO SCH (10:00)
[2020-07-03] MEDS: CHOLECALCIFEROL (VITD3) 1,000UNIT=25mCg TAB PO SCH (10:01)
[2020-07-03] MEDS: ASCORBIC ACID 500 MG TAB PO SCH ×2 (10:01→21:53)
[2020-07-03] MEDS: ENOXAPARIN SOD 40 MG/0.4 ML SYRINGE SC SCH (10:01)
[2020-07-03] MEDS: FUROSEMIDE 40 MG/4 ML VIAL IV SCH (10:01)
[2020-07-03] MEDS: INSULIN 70/30 1unit/0.01ml Susp (100units/ml) SC SCH ×2 (10:09→22:43)
[2020-07-03 12:51] VITALS: BP 134/54
[2020-07-03 16:45] VITALS: BP 135/57
[2020-07-03] MEDS ORDERED: IOHEXOL 350 MG/ML 100ML IJ ONE (17:00)
--- NOTE | 2020-07-03 17:08 | NUR ---
PATIENT OFF UNIT FOR PROCEDURE CT CHEST WITH CONTRAST, HOLD METFORMIN FOR 48HOURS
[2020-07-03 17:17] VITALS: BP 135/57
--- NOTE | 2020-07-03 17:27 | NUR ---
PATIENT BACK ON UNIT
--- NOTE | 2020-07-03 19:13 | NUR ---
SHIFT CHANGE ENDORSED CARE TO MOY MAGALLANES
--- NOTE | 2020-07-03 19:35 | NUR ---
Opening Shift Note Assumed care of patient, awake and alert. No S/S of distress/SOB or pain. Updated on POC and to call for assist PRN, patient verbalized understanding. Bed in lowest and locked position, bed alarm on, call light within reach, will continue to monitor for changes Q1hr and PRN.
[2020-07-03] MEDS: ATORVASTATIN 20 MG TAB PO SCH (21:53)
[2020-07-03 22:00] VITALS: BP 129/50
[2020-07-04 05:00] VITALS: BP 129/61
[2020-07-04] MEDS: ACCU-CHEK COMFORT CURVE STRIP VI SCH ×4 (06:21→22:55)
[2020-07-04] MEDS: InsuLIN REG 1unit/0.01ml Soln (100units/ml) SC SCH ×4 (06:21→22:56)
[2020-07-04] MEDS: ALBUTEROL SULF 2.5 MG/0.5ML(0.5%) NEB SOLN NEB SCH ×3 (06:32→21:45)
[2020-07-04] MEDS: IPRATROPIUM BROM 0.5 MG/2.5ML INH SOL NEB SCH ×3 (06:32→21:45)
[2020-07-04] MEDS: BUDESONIDE (INHALATION) 0.5 MG/2 ML NEB NEB SCH ×2 (06:32→21:45)
[2020-07-04] MEDS: metFORMIN HYDROCHLORIDE 500 MG TAB PO SCH ×2 (08:00→18:00)
[2020-07-04] MEDS: Glucerna Carbsteady SHAKE Vanilla 8oz PO SCH ×2 (08:22→17:57)
[2020-07-04 09:25] VITALS: BP 137/51
[2020-07-04] MEDS: POTASSIUM CHL 10 Meq TABLET PO SCH (10:25)
[2020-07-04] MEDS: CLOPIDOGREL BISULFATE 75 MG TAB PO SCH (10:25)
[2020-07-04] MEDS: PANTOPRAZOLE 40 MG TAB PO SCH (10:25)
[2020-07-04] MEDS: ENOXAPARIN SOD 40 MG/0.4 ML SYRINGE SC SCH (10:26)
[2020-07-04] MEDS: FUROSEMIDE 40 MG/4 ML VIAL IV SCH (10:26)
[2020-07-04] MEDS: amLODIPine BESYLATE 5 MG TAB PO SCH (10:26)
[2020-07-04] MEDS: CHOLECALCIFEROL (VITD3) 1,000UNIT=25mCg TAB PO SCH (10:27)
[2020-07-04] MEDS: ASCORBIC ACID 500 MG TAB PO SCH ×2 (10:33→22:55)
[2020-07-04] MEDS: INSULIN 70/30 1unit/0.01ml Susp (100units/ml) SC SCH ×2 (10:36→22:57)
--- NOTE | 2020-07-04 13:48 | NUR ---
re-assessment Per consult hospice evaluation. Patient and Sofi have been notified of hospice consult Sofi has been read a list of medicare providers. Per Sofi she has no preference. MD order has been sent to [facility]. Per Paresh Woodruff will meet with Sofi for consents and equipment delivery. Waiting on discharge now. Addendum: 07/04/20 at 1351 by Angelita Corley Amended: Links added.
[2020-07-04 14:25] VITALS: BP 112/61
--- NOTE | 2020-07-04 16:06 | NUR ---
ENTERED ROOM PT A/O. PT ON 10L/NC, TURNED DOWN TO 8L/NC, UNABLE TO TOLERATE DESATED TURNED BACK UP TO 10L/NC, PHYSICIAN WAS NOTIFIED. SHE CAME IN TO ACCESS PT, BLOOD GASES DONE. PT SITTING UP IN CHAIR, SOB WITH EXCERPTION. NO DISTRESS NOTED. OFFERS NO OTHER NEEDS. EATING ET DRINKING WELL. PT ON 10L/NC AT THIS TIME. RESTING IN BED
[2020-07-04 16:50] VITALS: BP 120/58
--- NOTE | 2020-07-04 16:53 | NUR ---
Pt is now independent with functional mobility tasks and does not require skilled PT. Safe to ambulate with nursing.
--- NOTE | 2020-07-04 19:32 | NUR ---
PT WAS TO BE DC WITH HOSPICE, PHYSICIAN CALLED ET STATED PT WAS NOT TO BE DISCHARGED UNTIL 07/05/20 DUE TO OXYGEN LEVEL. OFFERS NO OTHER NEEDS.
--- NOTE | 2020-07-04 19:40 | NUR ---
Opening Shift Note Assumed care of patient, awake and alert. No S/S of distress/SOB or pain. On oxymizer at 10 Lpm. Updated on POC and to call for assist PRN, patient verbalized understanding. Bed in lowest and locked position, bed alarm on, call light within reach, will continue to monitor for changes Q1hr and PRN.
--- NOTE | 2020-07-04 20:40 | NUR ---
Family updated on POC after verifying password
[2020-07-04 22:00] VITALS: BP 117/62
[2020-07-04] MEDS: ATORVASTATIN 20 MG TAB PO SCH (22:55)
[2020-07-05 05:00] VITALS: BP 121/57
[2020-07-05] MEDS: BUDESONIDE (INHALATION) 0.5 MG/2 ML NEB NEB SCH (05:51)
[2020-07-05] MEDS: ALBUTEROL SULF 2.5 MG/0.5ML(0.5%) NEB SOLN NEB SCH (05:51)
[2020-07-05] MEDS: IPRATROPIUM BROM 0.5 MG/2.5ML INH SOL NEB SCH (05:51)
[2020-07-05] MEDS: ACCU-CHEK COMFORT CURVE STRIP VI SCH ×2 (06:16→11:45)
[2020-07-05] MEDS: InsuLIN REG 1unit/0.01ml Soln (100units/ml) SC SCH ×2 (06:19→11:30)
[2020-07-05] MEDS: metFORMIN HYDROCHLORIDE 500 MG TAB PO SCH (08:00)
[2020-07-05] MEDS: Glucerna Carbsteady SHAKE Vanilla 8oz PO SCH (08:05)
[2020-07-05 09:42] VITALS: BP 115/60
[2020-07-05] MEDS: INSULIN 70/30 1unit/0.01ml Susp (100units/ml) SC SCH (10:00)
[2020-07-05 10:07] VITALS: BP 115/60
[2020-07-05] MEDS: FUROSEMIDE 40 MG/4 ML VIAL IV SCH (10:11)
[2020-07-05] MEDS: POTASSIUM CHL 10 Meq TABLET PO SCH (10:12)
[2020-07-05] MEDS: amLODIPine BESYLATE 5 MG TAB PO SCH (10:12)
[2020-07-05] MEDS: PANTOPRAZOLE 40 MG TAB PO SCH (10:12)
[2020-07-05] MEDS: CLOPIDOGREL BISULFATE 75 MG TAB PO SCH (10:12)
[2020-07-05] MEDS: CHOLECALCIFEROL (VITD3) 1,000UNIT=25mCg TAB PO SCH (10:13)
[2020-07-05] MEDS: ENOXAPARIN SOD 40 MG/0.4 ML SYRINGE SC SCH (10:13)
[2020-07-05] MEDS: ASCORBIC ACID 500 MG TAB PO SCH (10:13)
--- NOTE | 2020-07-05 10:20 | NUR ---
Spoke to Linda ALCALA with [facility] Transportation is set with [facility] between the hours of [phone]
[2020-07-05] MEDS ORDERED: GLIP5TAB12 PO (10:57)
[2020-07-05] MEDS ORDERED: METF-370 PO (10:57)
--- NOTE | 2020-07-05 11:53 | NUR ---
Spoke to patients jake Farah on [phone] Discharge instructions given as per MD orders with verbalized understanding, including that patient will no longer need insulin shots and instead will be going on PO med for sugar control. All questions and concerns addressed.
--- NOTE | 2020-07-05 13:32 | NUR ---
RE PHARMACIST CONSULT At transport arrival patient informed pharmacist to still consult patient on new medications. Patient states, "it will probably take long and you said I could go before 2" Patient educated on benefits of this consultation, patient states, "If I have questions my will call my doctor." Patient advised to seek for medicine management help as needed. Patient verbalized understanding and wishes to proceed with discharge without pharmacist consultation being completed.
--- NOTE | 2020-07-05 14:03 | NUR ---
Discharge instructions given as ordered to patient and patients Sofi. Hospice to follow up. All questions and concerns addressed. Patient verbalized understanding. Medication reconciliation form completed and copy given to patient. IV removed with catheter intact, pressure dressing applied. Telemetry unit returned to ICU. Patient taken by [facility] via wheelchair on 10L oxygen with all personal belongings, accompanied by transport personal. No distress noted at time of departure.
== END 2020-07-05 14:06 | disposition hospice, home (50) | DRG 871 ==
LOC: EDBD 20:21 → ER 20:24 → TELE-DOU 20:25 → TELE-EAST 06-09 02:35 → TELE-WESTW 06-09 15:28 → DOU IN ICU 06-12 23:34 → TELE-WESTW 06-30 14:15
PROVIDERS: ADMIT Hospitalist; ATTEND Internal Medicine
PROC: 5A09357 Assistance with Respiratory Ventilation, Less than 24 Consecutive Hours, Continuous Positive Airway Pressure (ICD-10-PCS; 2020-06-14)
PROC: XW033E5 Introduction of Remdesivir Anti-infective into Peripheral Vein, Percutaneous Approach, New Technology Group 5 (ICD-10-PCS; 2020-06-14)
PROC: XW13325 Transfusion of Convalescent Plasma (Nonautologous) into Peripheral Vein, Percutaneous Approach, New Technology Group 5 (ICD-10-PCS; principal; 2020-06-15)
DX: A41.89 Other specified sepsis (principal); U07.1 COVID-19; J96.01 Acute respiratory failure with hypoxia; J12.89 Other viral pneumonia; E44.1 Mild protein-calorie malnutrition; E87.1 Hypo-osmolality and hyponatremia; D68.9 Coagulation defect, unspecified; D61.818 Other pancytopenia; E11.65 Type 2 diabetes mellitus with hyperglycemia; I10 Essential (primary) hypertension; E78.5 Hyperlipidemia, unspecified; J43.9 Emphysema, unspecified; K59.00 Constipation, unspecified; T16.1XXA Foreign body in right ear, initial encounter; E87.6 Hypokalemia; I49.3 Ventricular premature depolarization; Z80.1 Family history of malignant neoplasm of trachea, bronchus and lung; Z82.0 Family history of epilepsy and other diseases of the nervous system; Z86.73 Personal history of transient ischemic attack (TIA), and cerebral infarction without residual deficits; Z87.891 Personal history of nicotine dependence; Z68.23 Body mass index [BMI] 23.0-23.9, adult; X58.XXXA Exposure to other specified factors, initial encounter; Y93.89 Activity, other specified; Y92.89 Other specified places as the place of occurrence of the external cause; Y99.8 Other external cause status
CPT/HCPCS: 36415; 36600; 71045; 71260; 71275; 80048; 80053; 80076; 80202; 81001; 82565; 82728; 82805; 82962; 83036; 83605; 83615; 83735; 83880; 84100; 84443; 84484; 85025; 85379; 85610; 85730; 86850; 86900; 86901; 87040; 87070; 87081; 87205; 87426; 87804; 93005; 93306; 93970; 94640; 96361; 96365; 96372; 96375; 97110; 97116; 97530; G0378; J0696; J1100; J1815; J1956; J2185

== ENCOUNTER 2020-07-09 12:06 | Inpatient (IN) | payer MEDICARE, OTHER ==
[~2020-07-09] VITALS: Ht 180.3 cm; Wt 75.4 kg
[2020-07-09] VITALS (37 sets, daily range): BP systolic 95–138; BP diastolic 46–67
[~2020-07-09 12:06] MED LIST: ALB5IS NEB; AMLO5TAB15 PO; ASCO500T11 PO; ATOR1TAB PO; CHOL20007 PO; CLOP75TA41 PO; FUR20T PO; GLIP5TAB12 PO; IPR002IS NEB; METF-370 PO; OMEP-260 PO; PANT40T PO; POTA-167 PO
[2020-07-09] MEDS ORDERED: LORazepam 2MG/ML-1ML VIAL ONE (12:17)
[2020-07-09] MEDS ORDERED: MAGNESIUM SULFATE 1GM/100ML 100 ML IV ONE (12:18)
[2020-07-09] MEDS ORDERED: ETOMIDATE (2MG/ML) 20ML VIAL IV ONE ×2 (12:32→12:45)
[2020-07-09] MEDS ORDERED: SUCCINYLCHOLINE CHLORIDE 20 MG/ML 10ML VIAL IV ONE ×2 (12:33→12:45)
[2020-07-09] MEDS ORDERED: MIDAZOLAM DRIP 50 mg/50mL 50 ML IV ONE ×2 (12:39→15:59)
[2020-07-09] MEDS ORDERED: MIDAZOLAM DRIP 50 mg/50mL 50 ML IV SCH (12:45)
[2020-07-09 12:56] LABS: Basophils # (auto) 0.1 10 ^3/uL (0-0.2); Basophils % (auto) 0.7 % (0.0-2.0); Eosinophils # (auto) 0.1 10 ^3/uL (0-0.8); Eosinophils % (auto) 0.6 % (0.0-7.0); Hematocrit 38.2 % (41.0-53.0); Hemoglobin 12.3 g/dL (13.5-17.5); Lymphocytes # (auto) 2.1 10 ^3/uL (0.4-5.4); Lymphocytes % (auto) 14.7 % (10.0-50.0); Mean Corpuscular Hemoglobin 28.5 pg (28.0-32.0); Mean Corpuscular Hgb Conc. 32.3 g/dL (32.0-36.0); Mean Corpuscular Volume 88.4 fL (80.0-100.0); Monocytes # (auto) 1.3 10 ^3/uL (0-1.3); Monocytes % (auto) 8.6 % (0.0-12.0); Neutrophils % (auto) 75.4 % (37.0-80.0); Nucleated Red Blood Cells % 0.2 %; Platelet Count (auto) 366 10^3/uL (140-450); Red Blood Cells 4.32 10^6/uL (4.5-5.90); Red Cell Distribution Width 15.4 % (11.8-14.3); White Blood Cell 14.5 10^3/uL (4.4-10.8)
[2020-07-09] MEDS ORDERED: PROPOFOL 100 ML IV SCH (13:00)
[2020-07-09] MEDS ORDERED: PROPOFOL 100 ML IV ONE ×2 (13:02→16:00)
[2020-07-09 13:04] LABS: INR 1.83 (0.9-1.15); Partial Thromboplastin Time 27.6 sec (23.0-31.2)
[2020-07-09 13:08] LABS: Albumin 2.2 g/dL (3.4-5.0); Calcium 8.6 mg/dL (8.5-10.1); Potassium 4.2 mmol/L (3.5-5.1)
[2020-07-09 13:12] LABS: Lactic Acid w/Reflex 10.8 mmol/L (0.4-2.0)
[2020-07-09 13:14] LABS: BUN/Creatinine Ratio 10.1; Bilirubin, Total 0.7 mg/dL (0.2-1.0); Total Protein 7.5 g/dL (6.4-8.2)
[2020-07-09] MEDS ORDERED: fentaNYL Drip 2500mCg/250mlNS 250 ML IV ONE (13:29)
[2020-07-09] MEDS: fentaNYL Drip 2500mCg/250mlNS 250 ML IV SCH ×4 (13:36→17:02)
[2020-07-09] MEDS ORDERED: MORPHINE SULF INJ 2 MG/ML SYRINGE 1ML IV PRN (14:15)
[2020-07-09] MEDS: MIDAZOLAM DRIP 50 mg/50mL 50 ML IV SCH ×2 (14:15→16:00)
[2020-07-09] MEDS: PROPOFOL 100 ML IV SCH ×2 (14:15→16:15)
[2020-07-09] MEDS ORDERED: NITROGLYCERIN 0.4 MG SL TAB SL PRN (14:15)
[2020-07-09] MEDS ORDERED: ACETAMINOPHEN 500 MG TAB PO PRN (14:15)
[2020-07-09] MEDS ORDERED: NOREPINEPHRINE 8 MG/250ML KIT 250 ML IV ONE (14:33)
[2020-07-09] MEDS ORDERED: NOREPINEPHRINE 8 MG/250ML KIT 250 ML IV SCH (14:45)
[2020-07-09] MEDS ORDERED: SODIUM BICARBONATE 8.4 % INJ 50ML VIAL IV ONE ×2 (14:45→15:00)
[2020-07-09] MEDS: NOREPINEPHRINE 8 MG/250ML KIT 250 ML IV SCH (14:45)
[2020-07-09] MEDS ORDERED: ACETAMINOPHEN 650 MG RECT SUPP PR ONE (15:00)
--- NOTE | 2020-07-09 15:40 | NUR ---
Admit to ICU from ER on vent VAN WINDY MALAVE admitted to ICU via gurney on rn cardiac cath, intubated and being bagged by Respiratory Therapist. Patient transferred to bed, connected to mechanical ventilator by therapist, BELINDA at bedside. Patient connected to ICU monitoring, weighed by martha, oriented to Crys butt RN, unit, ventilator and sedation. NOTE: RULING OUT COVID, ON AIRBORNE ISOLATION PRECAUTIONS. CURRENTLY INFUSING VERSED, PROPOFOL, FENTANYL, AND LEVOPHED IN RIGHT INTERNAL JUGULAR CENTRAL LINE.
--- NOTE | 2020-07-09 16:00 | NUR ---
TEMPERATURE PATIENTS RECTAL TEMPERATURE READING 102.0. COMPLIANCE EXAMINER STATED JUST ADMINISTERED TYLENOL. PLACED COOLING BLANKET. WILL CONTINUE TO MONITOR CLOSELY
--- NOTE | 2020-07-09 17:17 | NUR ---
COVID SWABS NEGATIVE RAPID AND INHOUSE SWABS RESULTED NEGATIVE. VERIFIED WITH COTTON ACREAGE MEASURER, DR BYNUM, WHO STATED TO REMOVED COVID ISOLATION PRECAUTIONS
[2020-07-09] MEDS: cefTRIAXone 1GM/50ML D5W 50 ML IV SCH (17:33)
[2020-07-09] MEDS ORDERED: IPRATROPIUM BROM 0.5 MG/2.5ML INH SOL NEB SCH (18:00)
[2020-07-09] MEDS ORDERED: ALBUTEROL SULF 2.5 MG/0.5ML(0.5%) NEB SOLN NEB SCH (18:00)
[2020-07-09] MEDS ORDERED: ALBUTEROL SULF HFA 90MCG INH 200DOSE IN SCH (18:00)
[2020-07-09] MEDS ORDERED: IPRATROPIUM BROMIDE HFA AER IN SCH (18:00)
--- NOTE | 2020-07-09 18:16 | NUR ---
CONTACT INFORMATION- AND SON SELENE SHARITA MALAVE () - [phone] WINDY SHARITA MALAVE- (SON) - [phone]
[2020-07-09] MEDS: MEROPENEM 1GM IVPB 100 ML IV SCH (18:35)
[2020-07-09] MEDS ORDERED: ALBUTEROL SULF 2.5 MG/0.5ML(0.5%) NEB SOLN ONE (18:42)
[2020-07-09] MEDS ORDERED: IPRATROPIUM BROM 0.5 MG/2.5ML INH SOL ONE (18:43)
[2020-07-09] MEDS ORDERED: BUDESONIDE (INHALATION) 0.5 MG/2 ML NEB ONE (18:43)
--- NOTE | 2020-07-09 19:23 | NUR ---
START OF SHIFT NOTE PATIENT RECEIVED FROM TRACIE WINTER. PATIENT INTUBATED AND ON VENT WITH SEDATION, TOLERATING WELL. PATIENT ON BESIDE MONITOR, VITAL SIGNS STABLE. PATIENT ON LEVO DRIP. PATIENT TURNED AND SCDS IN PLACE. SAFETY MAINTAINED. WILL CONTINUE TO MONITOR.
--- NOTE | 2020-07-09 20:28 | NUR ---
HOSPITALIST PAGED GOLD NIB GRINDER CALLED FOR PAGE TO HOSPITALIST TO REPORT CRITICAL TROPONIN VALUE. AWAITING CALL BACK.
--- NOTE | 2020-07-09 20:46 | NUR ---
REPEAT HOSPITALIST PAGE BARKER PEELER CALLED FOR REPEAT PAGE TO HOSPITALIST TO REPORT CRITICAL TROPONIN. AWAITING CALL BACK.
--- NOTE | 2020-07-09 21:10 | NUR ---
THIRD PAGE TO HOSPITALIST COATER OPERATOR CALLED FOR THIRD TIME TO PAGE HOSPITALIST IN HOUSE TO REPORT CRITICAL TROPONIN LEVEL WITH POSSIBLE EKG CHANGES.
--- NOTE | 2020-07-09 21:46 | NUR ---
ASSEMBLY ASSOCIATE CALL REACHED OUT TO ASSEMBLY ASSOCIATE IN ATTEMPT TO REACH HOSPITALIST TO REPORT TROPININ AND EKG CHANGES. NO CALL BACK AFTER THREE PAGES.
[2020-07-09] MEDS ORDERED: LINEZOLID 600MG/300ML 300 ML IV SCH (22:00)
[2020-07-09] MEDS ORDERED: MEROPENEM 1GM IVPB 100 ML IV SCH (22:00)
[2020-07-09] MEDS ORDERED: BUDESONIDE (INHALATION) 180 MCG IH IN SCH (22:00)
[2020-07-09] MEDS ORDERED: BUDESONIDE (INHALATION) 0.5 MG/2 ML NEB NEB SCH (22:00)
--- NOTE | 2020-07-09 22:10 | NUR ---
CALL BACK RECEIVED CALL BACK RECEIVED FROM RUBÉN JAMESON. HE WAS NOTIFIED OF TROPONIN AND EKG CHANGED. ORDER FOR CARDIAC CONSULT, LABS, AND MEDS RECEIVED.
[2020-07-09] MEDS ORDERED: ASPirin 325 MG TAB PO ONE (22:15)
[2020-07-09 23:23] LABS: Cholesterol 83 mg/dL (< 200)
[2020-07-09 23:26] LABS: HDL Cholesterol 27 mg/dL (40-59); LDL Cholesterol 49 mg/dL (< 100); Triglycerides 167 mg/dL (< 150)
[2020-07-10] VITALS (99 sets, daily range): BP systolic 99–135; BP diastolic 51–68
[2020-07-10] MEDS: BUDESONIDE (INHALATION) 0.5 MG/2 ML NEB NEB SCH ×3 (00:01→18:07)
[2020-07-10] MEDS: ALBUTEROL SULF 2.5 MG/0.5ML(0.5%) NEB SOLN NEB SCH ×4 (00:01→18:06)
[2020-07-10] MEDS: IPRATROPIUM BROM 0.5 MG/2.5ML INH SOL NEB SCH ×4 (00:01→18:06)
[2020-07-10] MEDS: MEROPENEM 1GM IVPB 100 ML IV SCH ×3 (06:24→21:56)
[2020-07-10 08:17] LABS: BUN/Creatinine Ratio 11.8; Calcium 7.9 mg/dL (8.5-10.1)
--- NOTE | 2020-07-10 09:00 | NUR ---
SEDATION VACATION HELD- NOT APPROPRIATE WITH VENTILATOR SETTINGS AND VASOPRESSOR SUPPORT Addendum: 07/10/20 at 1009 by Crys Camacho RN Amended: Links added.
[2020-07-10] MEDS: cefTRIAXone 1GM/50ML D5W 50 ML IV SCH (09:37)
[2020-07-10] MEDS ORDERED: CHOLECALCIFEROL (VITD3) 2,000 UNIT CAP PO SCH (10:00)
[2020-07-10] MEDS ORDERED: ZINC SULFATE 220mg CAP or TAB PO SCH (10:00)
[2020-07-10] MEDS ORDERED: ASCORBIC ACID 1,000 MG TAB PO SCH (10:00)
[2020-07-10] MEDS ORDERED: DexAMETHasone SOD PHOS 10MG/1ML VIAL INJ IV SCH (10:00)
[2020-07-10] MEDS ORDERED: ENOXAPARIN SOD 40 MG/0.4 ML SYRINGE SC SCH ×2 (10:00)
[2020-07-10] MEDS: DexAMETHasone SOD PHOS 10MG/1ML VIAL INJ IV SCH (10:03)
[2020-07-10] MEDS: ASPirin 325 MG TAB PO SCH (10:03)
--- NOTE | 2020-07-10 10:20 | NUR ---
DR BYNUM AT BEDSIDE DISCUSSED PATIENTS STATUS, RECEIVED NEW ORDERS.
--- NOTE | 2020-07-10 10:20 | NUR ---
DR FIERRO AT BEDSIDE DISCUSSED PATIENTS STATUS AND PLAN OR CARE
--- NOTE | 2020-07-10 11:00 | NUR ---
TEMPERATURE ELEVATED RECTAL TEMPERATURE, 100.6F, COOLING MEASURES INITIATED
[2020-07-10 11:46] LABS: Basophils # (auto) 0 10 ^3/uL (0-0.2); Basophils % (auto) 0.2 % (0.0-2.0); Eosinophils # (auto) 0.6 10 ^3/uL (0-0.8); Hematocrit 34.3 % (41.0-53.0); Hemoglobin 11.6 g/dL (13.5-17.5); Lymphocytes # (auto) 0.8 10 ^3/uL (0.4-5.4); Mean Corpuscular Hemoglobin 28.9 pg (28.0-32.0); Mean Corpuscular Hgb Conc. 33.9 g/dL (32.0-36.0); Mean Corpuscular Volume 85.4 fL (80.0-100.0); Monocytes # (auto) 0.4 10 ^3/uL (0-1.3); Monocytes % (auto) 4.4 % (0.0-12.0); Neutrophils # (auto) 7.8 10 ^3/uL (1.6-8.6); Neutrophils % (auto) 81.4 % (37.0-80.0); Nucleated Red Blood Cells % 0.1 %; Platelet Count (auto) 292 10^3/uL (140-450); Red Blood Cells 4.01 10^6/uL (4.5-5.90); Red Cell Distribution Width 15.5 % (11.8-14.3); White Blood Cell 9.6 10^3/uL (4.4-10.8)
[2020-07-10] MEDS ORDERED: HEPARIN SODIUM (PORCINE) 5000 UNITS/ML 1ML VIAL IV ONE (12:00)
[2020-07-10] MEDS: NOREPINEPHRINE 8 MG/250ML KIT 250 ML IV SCH ×2 (12:00→14:45)
--- NOTE | 2020-07-10 12:00 | NUR ---
DR SEQUEIRA AT BEDSIDE DISCUSSED PATIENTS STATUS, RECEIVED NEW ORDERS
[2020-07-10 12:06] LABS: INR 1.88 (0.9-1.15); Partial Thromboplastin Time 29.7 sec (23.0-31.2)
[2020-07-10] MEDS ORDERED: FUROSEMIDE 20 MG/2 ML VIAL IV ONE (12:45)
[2020-07-10] MEDS ORDERED: CLOPIDOGREL 300 MG TAB PO ONE (12:45)
[2020-07-10] MEDS: PROPOFOL 100 ML IV SCH ×2 (13:04→20:42)
[2020-07-10] MEDS: MIDAZOLAM DRIP 50 mg/50mL 50 ML IV SCH (13:04)
[2020-07-10] MEDS: fentaNYL Drip 2500mCg/250mlNS 250 ML IV SCH (13:04)
--- NOTE | 2020-07-10 14:00 | NUR ---
DR EL AT BEDSIDE DISCUSSED STATUS AND NEW ORDERS PLACED
[2020-07-10] MEDS: LINEZOLID 600MG/300ML 300 ML IV SCH (14:02)
--- NOTE | 2020-07-10 14:19 | NUR ---
PATIENTS SISTER ROBEL CALLED FOR UPDATE PROVIDED PASSWORD. UPDATED ON PATIENTS STATUS AND PLAN OF CARE
--- NOTE | 2020-07-10 14:24 | NUR ---
ITALIAN TEACHER AT BEDSIDE
[2020-07-10] MEDS: HEPARIN DRIP/D5W 100UNITS/ML 250 ML IV SCH (14:31)
[2020-07-10] MEDS ORDERED: Jevity 1.2 Cal/Fiber 1 Liter GT SCH (18:15)
[2020-07-10 21:43] LABS: INR 1.93 (0.9-1.15)
[2020-07-10] MEDS: ATORVASTATIN 20 MG TAB PO SCH (21:56)
[2020-07-10] MEDS ORDERED: ATORVASTATIN 20 MG TAB PO SCH (22:00)
[2020-07-11] VITALS (100 sets, daily range): BP systolic 96–138; BP diastolic 39–66
[2020-07-11] MEDS: LINEZOLID 600MG/300ML 300 ML IV SCH ×3 (00:04→23:26)
[2020-07-11] MEDS: MIDAZOLAM DRIP 50 mg/50mL 50 ML IV SCH ×5 (00:07→23:23)
[2020-07-11] MEDS: IPRATROPIUM BROM 0.5 MG/2.5ML INH SOL NEB SCH ×4 (00:13→18:30)
[2020-07-11] MEDS: ALBUTEROL SULF 2.5 MG/0.5ML(0.5%) NEB SOLN NEB SCH ×5 (00:13→18:30)
[2020-07-11 04:35] LABS: Basophils # (auto) 0 10 ^3/uL (0-0.2); Basophils % (auto) 0.3 % (0.0-2.0); Eosinophils # (auto) 0 10 ^3/uL (0-0.8); Eosinophils % (auto) 0.2 % (0.0-7.0); Hemoglobin 10.6 g/dL (13.5-17.5); Lymphocytes # (auto) 0.7 10 ^3/uL (0.4-5.4); Lymphocytes % (auto) 11.9 % (10.0-50.0); Mean Corpuscular Hemoglobin 28.6 pg (28.0-32.0); Mean Corpuscular Hgb Conc. 33.2 g/dL (32.0-36.0); Mean Corpuscular Volume 86.1 fL (80.0-100.0); Monocytes # (auto) 0.2 10 ^3/uL (0-1.3); Neutrophils # (auto) 4.7 10 ^3/uL (1.6-8.6); Neutrophils % (auto) 83.6 % (37.0-80.0); Nucleated Red Blood Cells % 0.1 %; Platelet Count (auto) 255 10^3/uL (140-450); Red Blood Cells 3.72 10^6/uL (4.5-5.90); Red Cell Distribution Width 15.5 % (11.8-14.3); White Blood Cell 5.6 10^3/uL (4.4-10.8)
[2020-07-11 04:55] LABS: INR 1.67 (0.9-1.15); Partial Thromboplastin Time 57.5 sec (23.0-31.2)
[2020-07-11 04:58] LABS: Potassium 4.5 mmol/L (3.5-5.1)
[2020-07-11 05:02] LABS: BUN/Creatinine Ratio 17.9
[2020-07-11] MEDS: BUDESONIDE (INHALATION) 0.5 MG/2 ML NEB NEB SCH ×2 (06:13→18:30)
[2020-07-11] MEDS ORDERED: DEXTROSE (50%) 50ML SYRG IV PRN ×2 (06:15→10:30)
--- NOTE | 2020-07-11 07:15 | NUR ---
OPENING NOTE RECEIVED REPORT FROM CHEESE GRADER RN. PATIENT INTUBATED SEDATED ON VERSED AND FENT. TOLERATING VENTILATOR. STATING >95% ON BED SIDE MONITOR. RIGHT IJ TLC CDI, PATENT, TRANSFUSING ALL MEDICATIONS. SR 80'S WITH BP 113/60 NO PRESSURE MEDICATIONS. ON HEPARIN GTT @ 1150, PTT @ 0330 THERAPEUTIC. OGT PATIENT RUNNING JEVITY @ 30ML/HR. RESIDUAL OF 90ML, HELD FEEDING. RECTAL TEMP 98.1. FOR GTTS AND THEIR TITRATIONS SEE IV SPREAD SHEET. FOR MORE INFORMATION SEE INTERVENTIONS. ALL FALL AND SAFETY PRECAUTIONS IN PLACE. PILLOWS PLACED FOR COMFORT.
--- NOTE | 2020-07-11 08:00 | NUR ---
MD SEQUEIRA AT BEDSIDE UPDATED ON PATIENT STATUS, NEW ORDERS RECEIVED
[2020-07-11] MEDS: MEROPENEM 1GM IVPB 100 ML IV SCH ×2 (09:52→21:14)
[2020-07-11] MEDS: DexAMETHasone SOD PHOS 10MG/1ML VIAL INJ IV SCH (09:52)
[2020-07-11] MEDS: CLOPIDOGREL BISULFATE 75 MG TAB PO SCH (09:52)
[2020-07-11] MEDS: ASPirin 325 MG TAB PO SCH (09:53)
[2020-07-11] MEDS ORDERED: FUROSEMIDE 20 MG/2 ML VIAL IV SCH (10:00)
[2020-07-11 11:04] LABS: INR 1.56 (0.9-1.15); Partial Thromboplastin Time 46.1 sec (23.0-31.2)
--- NOTE | 2020-07-11 11:14 | NUR ---
AT BEDSIDE MD LOPEZ AT BEDSIDE, UPDATED ON PATIENT STATUS. NEW ORDERS RECEIVED.
--- NOTE | 2020-07-11 11:17 | NUR ---
INCREASED HEPARIN GTT PER PHARMACY PROTOCOL PLACE ORDER FOR PTT IN 6 HRS.
--- NOTE | 2020-07-11 11:48 | NUR ---
BS 413 PAGED HOSPITALIST UPDATED ON PATIENT STATUS, NEW ORDERS RECEIVED
[2020-07-11] MEDS ORDERED: INSULIN LANTUS (GLARGINE) 1 /0.01ml (100units/ml) SC ONE ×2 (12:00→17:45)
[2020-07-11] MEDS ORDERED: ACCU-CHEK COMFORT CURVE STRIP VI SCH (12:00)
[2020-07-11] MEDS ORDERED: InsuLIN REG 1unit/0.01ml Soln (100units/ml) SC SCH (12:00)
[2020-07-11] MEDS: InsuLIN REG 1unit/0.01ml Soln (100units/ml) SC SCH ×2 (12:08→18:09)
[2020-07-11] MEDS: ACCU-CHEK COMFORT CURVE STRIP VI SCH ×3 (12:08→23:57)
[2020-07-11] MEDS: HEPARIN DRIP/D5W 100UNITS/ML 250 ML IV SCH (12:38)
--- NOTE | 2020-07-11 12:40 | NUR ---
RECEIVED TELEPHONE CONSENT FROM FILED IN HARD CHART. BLOOD, ANESTHESIA AND LEFT HEART CATH
[2020-07-11] MEDS ORDERED: SODIUM BICARBONATE 8.4% INJ 50ML SYRINGE IV ONE (13:15)
[2020-07-11] MEDS: fentaNYL Drip 2500mCg/250mlNS 250 ML IV SCH ×2 (13:30→17:48)
[2020-07-11] MEDS: PROPOFOL 100 ML IV SCH (14:15)
[2020-07-11] MEDS: NOREPINEPHRINE 8 MG/250ML KIT 250 ML IV SCH (14:45)
--- NOTE | 2020-07-11 15:00 | NUR ---
RECEIVED PHONE CALL FROM FAMILY AFTER RECEIVING CORRECT PASSWORD, UPDATED FAMILY ON PATIENT STATUS. ALL QUESTIONS ADDRESSED AT THIS TIME
[2020-07-11 16:53] LABS: Protein, Urine 39.8 mg/dL (0.0-11.9)
--- NOTE | 2020-07-11 17:36 | NUR ---
PAGED HOSPITALIST FOR BS OF 465 SPOKE WITH MD WARNER. RECEIVED ORDER FOR 15 LANTUS NOW AND INSULIN SLIDING SCALE COVERAGE
--- NOTE | 2020-07-11 18:30 | NUR ---
Respiratory note: RECEIVED PT ON VENT V4, VENT CONNECTED TO RED OUTLET AND O2 SOURCE. ALARMS ARE SET AND AUDIBLE. AMBU BAG AND MASK AT BEDSIDE. PTS CURRENT TEMP READS 99.1F. BS ARE DIMINISHED T/O, NO SX DONE AT THIS TIME. MED NEB X GIVEN INLINE WITHOUT ADVERSE REACTION NOTED. FIO2 TITRATED TO 50% VIA VENT, MOY RIVERS AWARE OF O2 CHANGE. RT NAME AND PAGER ASSIGNMENT WRITTEN ON PTS ROOM BOARD. WILL CONTINUE TO MONITOR.
[2020-07-11 18:35] LABS: Urine Bacteria FEW /hpf (None Seen); Urine Blood Negative /uL (Negative); Urine Hyaline Cast MANY /lpf (0 - 2); Urine Mucus FEW (None Seen); Urine Specific Gravity 1.023 (1.001-1.035); Urine WBC 4 /hpf (0 - 3)
[2020-07-11 18:48] LABS: INR 1.46 (0.9-1.15); Partial Thromboplastin Time 51.9 sec (23.0-31.2)
--- NOTE | 2020-07-11 19:02 | NUR ---
HELD HEPARIN GTT PER MD ORDER
[2020-07-11] MEDS ORDERED: phytonadione 2.5 MG in SODIUM CHL 0.9% 50 ML IV ONE (19:30)
[2020-07-11] MEDS: ATORVASTATIN 20 MG TAB PO SCH (21:14)
[2020-07-11] MEDS: INSULIN LANTUS (GLARGINE) 1 /0.01ml (100units/ml) SC SCH (22:00)
[2020-07-12] VITALS (106 sets, daily range): BP systolic 92–156; BP diastolic 41–74
[2020-07-12] MEDS: InsuLIN REG 1unit/0.01ml Soln (100units/ml) SC SCH ×4 (00:04→18:00)
[2020-07-12] MEDS: ALBUTEROL SULF 2.5 MG/0.5ML(0.5%) NEB SOLN NEB SCH ×4 (00:36→18:39)
[2020-07-12] MEDS: IPRATROPIUM BROM 0.5 MG/2.5ML INH SOL NEB SCH ×4 (00:36→18:39)
--- NOTE | 2020-07-12 00:36 | NUR ---
Respiratory note: AT BEDSIDE FOR ROUTINE VENT CHECK. PTS CURRENT TEMP READS 99.0F. BS ARE FINE COURSE SXD VIA ETT FOR SMALL THIN GRIER. MED NEB TX GIVEN INLINE WITHOUT ADVERSE REACTION NOTED. NO CHANGES MADE WILL CONTINUE TO MONITOR.
--- NOTE | 2020-07-12 02:27 | NUR ---
Respiratory note: AT BEDSIDE FOR ROUTINE VENT CHECK. PTS CURRENT TEMP READS 98.8F. NO CHANGES MADE WILL CONTINUE TO MONITOR.
--- NOTE | 2020-07-12 04:05 | NUR ---
Respiratory note: AT BEDSIDE FOR END OF SHIFT VENT CHECK. CURRENT TEMP READING 98.1F. FIO2 TITRATED TO 40% VIA VENTILATOR. RN GORDO Perez COMMUNICATED ON O2 CHANGE. WILL HAVE DAY SHIFT CONTINUE POC.
[2020-07-12 04:31] LABS: Basophils # (auto) 0 10 ^3/uL (0-0.2); Basophils % (auto) 0.4 % (0.0-2.0); Eosinophils # (auto) 0 10 ^3/uL (0-0.8); Eosinophils % (auto) 0.1 % (0.0-7.0); Hemoglobin 9.3 g/dL (13.5-17.5); Lymphocytes # (auto) 0.9 10 ^3/uL (0.4-5.4); Lymphocytes % (auto) 13.6 % (10.0-50.0); Mean Corpuscular Hemoglobin 28.6 pg (28.0-32.0); Mean Corpuscular Hgb Conc. 33.3 g/dL (32.0-36.0); Monocytes # (auto) 0.5 10 ^3/uL (0-1.3); Monocytes % (auto) 7.5 % (0.0-12.0); Neutrophils # (auto) 4.9 10 ^3/uL (1.6-8.6); Neutrophils % (auto) 78.4 % (37.0-80.0); Nucleated Red Blood Cells % 0.2 %; Platelet Count (auto) 254 10^3/uL (140-450); Red Blood Cells 3.25 10^6/uL (4.5-5.90); Red Cell Distribution Width 15.8 % (11.8-14.3); White Blood Cell 6.3 10^3/uL (4.4-10.8)
[2020-07-12 04:45] LABS: INR 1.36 (0.9-1.15); Partial Thromboplastin Time 27.3 sec (23.0-31.2)
[2020-07-12 04:49] LABS: Albumin 1.7 g/dL (3.4-5.0); Potassium 4.1 mmol/L (3.5-5.1)
[2020-07-12 04:54] LABS: BUN/Creatinine Ratio 25.9; Bilirubin, Total 0.2 mg/dL (0.2-1.0); Total Protein 5.9 g/dL (6.4-8.2)
[2020-07-12] MEDS: BUDESONIDE (INHALATION) 0.5 MG/2 ML NEB NEB SCH ×2 (05:53→18:40)
[2020-07-12] MEDS: ACCU-CHEK COMFORT CURVE STRIP VI SCH ×3 (06:08→18:18)
--- NOTE | 2020-07-12 07:57 | NUR ---
MD SEQUEIRA AT BEDSIDE MD CALLED AND SPOKE WITH FAMILY, SELENE, REGARDING PROCEDURE. ALL QUESTIONS ADDRESSED AT THIS TIME
--- NOTE | 2020-07-12 08:05 | NUR ---
PLACED PAGE TO PRODUCTION CHECKER WAITING FOR CALL BACK
--- NOTE | 2020-07-12 08:19 | NUR ---
RECEIVED CALL FROM MD PORTILLO UPDATED ON PATIENT STATUS, RECEIVED NEW ORDERS
--- NOTE | 2020-07-12 08:41 | NUR ---
PLACED PAGE TO FLIGHT PHYSICIAN SECOND PAGE, WAITING FOR CALL BACK
--- NOTE | 2020-07-12 08:46 | NUR ---
RECEIVED PHONE CALL FROM MD MEJIA UPDATED ON PATIENT STATUS, DOES NOT WANT NEWS ANCHOR PROCEDURE DUE TO ELEVATED KIDNEY FUNCTIONS
--- NOTE | 2020-07-12 09:05 | NUR ---
Respiratory note: PEEP TITRATED TO [address] HENDRICKS ORDER. HME CHANGED. PT TOLERATING CHANGE WELL.
--- NOTE | 2020-07-12 09:07 | NUR ---
PAGED MD SEQUEIRA WAITING FOR CALL BACK
--- NOTE | 2020-07-12 09:48 | NUR ---
SPOKE WITH MD PENNY UPDATED ON NEPHROLOGY STAND POINT. ASKED IF HE WOULD LIKE TO RESTART HEPARIN GTT AND MD SAID CONTINUE TO HOLD. PATIENT POSSIBLE CATH TOMORROW.
[2020-07-12] MEDS: MEROPENEM 1GM IVPB 100 ML IV SCH ×2 (10:13→22:09)
[2020-07-12] MEDS: CLOPIDOGREL BISULFATE 75 MG TAB PO SCH (10:13)
[2020-07-12] MEDS: ASPirin 325 MG TAB PO SCH (10:13)
[2020-07-12] MEDS: INSULIN LANTUS (GLARGINE) 1 /0.01ml (100units/ml) SC SCH ×2 (10:14→22:00)
[2020-07-12] MEDS ORDERED: DOPamine 1600MCG/ML D5W 250 ML IV SCH (10:15)
--- NOTE | 2020-07-12 10:30 | NUR ---
Respiratory note: PEEP TITRATED TO [address] HENDRICKS ORDER. RN AMANDA AT BEDSIDE, RN AWARE OF CHANGES.PT TOLERATING CHANGE WELL.
[2020-07-12] MEDS: FUROSEMIDE 40 MG/4 ML VIAL IV SCH ×2 (10:40→18:18)
--- NOTE | 2020-07-12 11:08 | NUR ---
Nutrition Assessment Est energy needs 8646-8404 kcal (20-23 kcal/kg BW 82.6kg) Est protein needs 66-83g (0.8-1g/kg BW r/t severe hypoalb) Will monitor and reassess prn. Addendum: 07/12/20 at [address] Amended: Links added.
--- NOTE | 2020-07-12 11:13 | NUR ---
PLACED PAGE TO MD MEJIA
[2020-07-12] MEDS: LINEZOLID 600MG/300ML 300 ML IV SCH ×2 (11:39→23:58)
[2020-07-12] MEDS: PROPOFOL 100 ML IV SCH (11:43)
[2020-07-12] MEDS: NOREPINEPHRINE 8 MG/250ML KIT 250 ML IV SCH (11:43)
--- NOTE | 2020-07-12 12:00 | NUR ---
HELD DOPAMINE PER MD LOPEZ REQUEST. HELD DOPAMINE. ON DOPAMINE PATIENT BECAME HYPERTENSIVE WITH SBP >160 AND HR 110.
--- NOTE | 2020-07-12 19:30 | NUR ---
Patient was admitted to ICU on Jul 09, with SOB, fatigue, O2 50% on room air. EMT placed pt on Cpap and was intubated in ER. Patient was admitted before to [facility], COVID 19 possitive, left AMA home on Hospice. Patient is orally intubated, on PC. Has a IJ to the right side running Fentanyl and Versed. Mane catheter in place to down drain bag. OG tube on stand by for high residual and pre op for Left heart cath in AM.
[2020-07-12] MEDS: ACETYLCYSTEINE ORAL for CIN 20%(200MG/ML) 4ML PO SCH (22:21)
[2020-07-12] MEDS: ATORVASTATIN 20 MG TAB PO SCH (22:22)
[2020-07-12] MEDS: MIDAZOLAM DRIP 50 mg/50mL 50 ML IV SCH (22:28)
[2020-07-12] MEDS: fentaNYL Drip 2500mCg/250mlNS 250 ML IV SCH (22:29)
[2020-07-13] VITALS (87 sets, daily range): BP systolic 82–133; BP diastolic 42–58
[2020-07-13] MEDS: IPRATROPIUM BROM 0.5 MG/2.5ML INH SOL NEB SCH ×4 (00:11→18:34)
[2020-07-13] MEDS: ALBUTEROL SULF 2.5 MG/0.5ML(0.5%) NEB SOLN NEB SCH ×4 (00:11→18:34)
[2020-07-13] MEDS: ACCU-CHEK COMFORT CURVE STRIP VI SCH ×4 (00:22→18:16)
[2020-07-13] MEDS: MIDAZOLAM DRIP 50 mg/50mL 50 ML IV SCH ×3 (01:44→18:44)
[2020-07-13 04:03] LABS: Basophils # (auto) 0 10 ^3/uL (0-0.2); Basophils % (auto) 0.5 % (0.0-2.0); Eosinophils # (auto) 0.1 10 ^3/uL (0-0.8); Eosinophils % (auto) 1.7 % (0.0-7.0); Hematocrit 28.5 % (41.0-53.0); Hemoglobin 9.7 g/dL (13.5-17.5); Lymphocytes # (auto) 1.5 10 ^3/uL (0.4-5.4); Mean Corpuscular Hemoglobin 29.1 pg (28.0-32.0); Mean Corpuscular Hgb Conc. 34.2 g/dL (32.0-36.0); Monocytes # (auto) 0.5 10 ^3/uL (0-1.3); Monocytes % (auto) 8.6 % (0.0-12.0); Neutrophils # (auto) 3.4 10 ^3/uL (1.6-8.6); Neutrophils % (auto) 62.2 % (37.0-80.0); Nucleated Red Blood Cells % 0.2 %; Platelet Count (auto) 231 10^3/uL (140-450); Red Blood Cells 3.35 10^6/uL (4.5-5.90); Red Cell Distribution Width 15.8 % (11.8-14.3); White Blood Cell 5.4 10^3/uL (4.4-10.8)
[2020-07-13 04:27] LABS: Albumin 1.7 g/dL (3.4-5.0); Calcium 7.9 mg/dL (8.5-10.1); Potassium 3.3 mmol/L (3.5-5.1)
--- NOTE | 2020-07-13 04:30 | NUR ---
CHG BATH AND PARTIAL LINEN CHANGE.
[2020-07-13 04:33] LABS: BUN/Creatinine Ratio 36.8; Bilirubin, Total 0.3 mg/dL (0.2-1.0); Phosphorus 3.2 mg/dL (2.5-4.90); Total Protein 5.7 g/dL (6.4-8.2)
[2020-07-13] MEDS: InsuLIN REG 1unit/0.01ml Soln (100units/ml) SC SCH ×4 (06:00→18:00)
[2020-07-13] MEDS: FUROSEMIDE 40 MG/4 ML VIAL IV SCH ×2 (06:00→18:28)
--- NOTE | 2020-07-13 06:51 | NUR ---
Linen changed, patient tolerating well the vent setting. OG on stand by for possible procedure this morning.
--- NOTE | 2020-07-13 07:30 | NUR ---
RECEIVED CALL FROM [facility] UPDATED ON PATIENT STATUS, CL PROCEDURE FOR 07/13
[2020-07-13] MEDS: BUDESONIDE (INHALATION) 0.5 MG/2 ML NEB NEB SCH ×2 (08:41→18:34)
[2020-07-13] MEDS ORDERED: DOPamine 1600MCG/ML D5W 250 ML IV SCH (09:00)
--- NOTE | 2020-07-13 09:12 | NUR ---
PLACED PAGE TO MD MEJIA
--- NOTE | 2020-07-13 09:23 | NUR ---
RECEIVED PHONE CALL FROM MD MEJIA UPDATED ON PATIENT STATUS. NEW ORDERS RECEIVED. WILL NOT START DOPAMINE GTT PER T-1 @ 1200 HR >110 AND BP >160SBP
--- NOTE | 2020-07-13 09:30 | NUR ---
PREFORMED PRE OP CHG BATH TO PATIENT
[2020-07-13] MEDS: ASPirin 325 MG TAB PO SCH (09:37)
[2020-07-13] MEDS: ACETYLCYSTEINE ORAL for CIN 20%(200MG/ML) 4ML PO SCH ×2 (09:37→21:43)
[2020-07-13] MEDS: MEROPENEM 1GM IVPB 100 ML IV SCH ×2 (09:37→21:42)
[2020-07-13] MEDS: INSULIN LANTUS (GLARGINE) 1 /0.01ml (100units/ml) SC SCH ×2 (09:38→21:43)
[2020-07-13] MEDS: CLOPIDOGREL BISULFATE 75 MG TAB PO SCH (09:38)
[2020-07-13] MEDS: POTASSIUM CHL 20MEQ/100ML 100 ML IV SCH ×2 (10:01→11:30)
[2020-07-13] MEDS ORDERED: LIDOCAINE 2%HCL (LOCAL ANESTH.) INJ 20ML MDV ONE (11:42)
[2020-07-13] MEDS ORDERED: IODIXANOL 320MG/ML 100ML BTL IV ONE ×2 (11:42→13:01)
[2020-07-13] MEDS: LINEZOLID 600MG/300ML 300 ML IV SCH (12:03)
--- NOTE | 2020-07-13 12:10 | NUR ---
PT TRANSPORTED TO PATHOLOGY LABORATORY DIRECTOR
--- NOTE | 2020-07-13 12:11 | NUR ---
Pt to laborer plumbing without incident, on monitor and [facility] vent, R.T. present at bedside. pt on continuous IV sedation (see [facility] report). also, FC in place draining to gravity. pt observed to have 'pressure wound' on bilateral cheeks where vent/tube 'mcgrath' is in place. R.T. aware and primary RN notified.
--- NOTE | 2020-07-13 12:19 | NUR ---
RECEIVED PHONE CALL FROM FAMILY RECEIVED CORRECT PASSWORD. UPDATED ON PATIENT STATUS. ALL QUESTIONS ADDRESSED AT THIS TIME
[2020-07-13] MEDS ORDERED: VERAPAMIL 2.5MG/ML INJ 2ML VIAL IV ONE (12:47)
[2020-07-13] MEDS ORDERED: HEPARIN SODIUM (PORCINE) 5000 UNITS/ML 1ML VIAL ONE (12:49)
[2020-07-13] MEDS ORDERED: ANGIOMAX 250 MG VIAL IV ONE (12:56)
[2020-07-13] MEDS ORDERED: SODIUM CHL 0.9% 50 ML ONE (12:56)
--- NOTE | 2020-07-13 13:26 | NUR ---
Pt back in ICU from CathLab pt transferred directly to ICU on monitor and [facility] vent; R.T. present at bedside. Continuous IV sedation as per [facility] report. Bedside report given to primary RN, bilateral groin access site benign, no bleeding or hematoma; Left radial access benign, VascBand in place, no bleeding or hematoma. Fluid bolus finished. V.S. stable per baseline. Angiomax stopped/ dc'd as ordered by Dr. Rivers.
[2020-07-13] MEDS: fentaNYL Drip 2500mCg/250mlNS 250 ML IV SCH (13:30)
--- NOTE | 2020-07-13 13:30 | NUR ---
PATIENT RETURNED FORM WAREHOUSE COORDINATOR CONNECTED TO MONITOR. THREE INCISION SITES. RIGHT AND LEFT GROIN INCISION SITES DRESSED WITH RANDALL AND TEGADERM. INTACT, NO HEMATOMA. LEFT WRIST WITH WRIST AIRGUARD. PER CL RN WILL BEGIN TO DEFLATE IN 2 HOURS. NO HEMATOMA, MINOR BLEEDING ON LEFT WRIST.
--- NOTE | 2020-07-13 14:02 | NUR ---
PAUL AT BEDSIDE UPDATED ON PATIENT STATUS. CARDIAC CLEARANCE FOR CPAP TRIAL TOMORROW AM
[2020-07-13] MEDS: PROPOFOL 100 ML IV SCH (14:15)
[2020-07-13] MEDS: NOREPINEPHRINE 8 MG/250ML KIT 250 ML IV SCH (14:25)
--- NOTE | 2020-07-13 17:21 | NUR ---
RECEIVED PHONE CALL FROM FAMILY VERIFIED CORRECT PASSWORD. UPDATED FAMILY ON PATIENT STATUS. ALL QUESTIONS ADDRESSED
--- NOTE | 2020-07-13 20:00 | NUR ---
OPEN ASSUMED CARE OF MALE PT ORALLY INTUBATED. PT RECEIVED ON VERSED GTT 4 MG/HR AND FENTANYL GTT 50 MCG/HR. PT OPENS EYES DURING ORAL CARE AND TURNING OTHERWISE NON RESPONSIVE. SR ON STATE FARM AGENT WITH OCCASIONAL PAC'S. OGT IN PLACE CLAMPED. PLACEMENT VERIFIED. PT WITH SUSPECTED DTI TO PIETRO CHEEKS. R. CHEEK WITH NON BLANCHABLE PURPLE SKIN INTACT. L. CHEEK CIRCULAR DARK RED/BLACKENED NON INTACT SKIN. BOTH OPEN TO AIR. ETT BENAVIDES PLACED BELOW WOUNDS. R. IJ TLC IN PLACE. ALL PORTS PATENT. DRESSING CDI. 2X2'S AND TEGADERM OBSERVED TO L. WRIST SITE OF L. HEART CATH RADIAL APPROACH. AREA SOFT. NO BRUISING BLEEDING OR HEMATOMA OBSERVED. 20G IV TO R. F/A S/L B&P. 20 G IV TO L. AC S/L B&P. QUIÑONES TO GRAVITY DRAINING CLEAR PALE YELLOW URINE. PIETRO SCD'S IN PLACE. BED IN LOWEST LOCKED POSITION. SIDE RAILS UP X 2. HOB ELEVATED TO 35 DEGREES. PILLOWS USED TO OFFLOAD BONY PROMINENCES AND PIETRO LOWER EXTREMITIES. NO INDICATION OF PAIN OBSERVED. PT IN FULL VIEW OF RN STATION. WILL CONTINUE TO MONITOR.
[2020-07-13] MEDS: ATORVASTATIN 20 MG TAB PO SCH (21:43)
--- NOTE | 2020-07-13 23:10 | NUR ---
LOW OXYGEN SATURATION/ Jo MORA. PT OBSERVED TO BE SLEEPING. O2 SATS DECREASED TO 85% ON HI FLOW O2. Jo MORA. Addendum: 07/13/20 at 2341 by Mindy Lorenzana RN DISREGARD NOTE. WRONG PT.
[2020-07-14] VITALS (99 sets, daily range): BP systolic 101–154; BP diastolic 50–78
[2020-07-14] MEDS: LINEZOLID 600MG/300ML 300 ML IV SCH ×2 (00:04→12:00)
[2020-07-14] MEDS: ACCU-CHEK COMFORT CURVE STRIP VI SCH ×4 (00:05→17:59)
[2020-07-14] MEDS: IPRATROPIUM BROM 0.5 MG/2.5ML INH SOL NEB SCH ×4 (00:08→18:45)
[2020-07-14] MEDS: ALBUTEROL SULF 2.5 MG/0.5ML(0.5%) NEB SOLN NEB SCH ×4 (00:08→18:45)
--- NOTE | 2020-07-14 02:00 | NUR ---
ECTOPY PT HAD 5 BEAT RUN V-TACH. WILL OBTAIN LABS.
[2020-07-14 04:25] LABS: Basophils # (auto) 0 10 ^3/uL (0-0.2); Basophils % (auto) 0.6 % (0.0-2.0); Eosinophils # (auto) 0.1 10 ^3/uL (0-0.8); Eosinophils % (auto) 2.3 % (0.0-7.0); Hematocrit 34.6 % (41.0-53.0); Hemoglobin 11.4 g/dL (13.5-17.5); Lymphocytes # (auto) 1.5 10 ^3/uL (0.4-5.4); Lymphocytes % (auto) 23.4 % (10.0-50.0); Mean Corpuscular Hemoglobin 28.5 pg (28.0-32.0); Mean Corpuscular Volume 86.4 fL (80.0-100.0); Monocytes # (auto) 0.5 10 ^3/uL (0-1.3); Monocytes % (auto) 8.8 % (0.0-12.0); Neutrophils # (auto) 4.1 10 ^3/uL (1.6-8.6); Neutrophils % (auto) 64.9 % (37.0-80.0); Nucleated Red Blood Cells % 0.1 %; Platelet Count (auto) 250 10^3/uL (140-450); Red Cell Distribution Width 16.2 % (11.8-14.3); White Blood Cell 6.3 10^3/uL (4.4-10.8)
[2020-07-14 05:48] LABS: Bilirubin, Total 0.7 mg/dL (0.2-1.0); Total Protein 6.2 g/dL (6.4-8.2)
[2020-07-14] MEDS: InsuLIN REG 1unit/0.01ml Soln (100units/ml) SC SCH ×4 (06:00→17:59)
[2020-07-14] MEDS: FUROSEMIDE 40 MG/4 ML VIAL IV SCH ×2 (06:00→17:58)
[2020-07-14 06:01] LABS: Albumin 1.9 g/dL (3.4-5.0); BUN/Creatinine Ratio 39.3
[2020-07-14 06:18] LABS: Calcium 8.1 mg/dL (8.5-10.1)
[2020-07-14] MEDS: BUDESONIDE (INHALATION) 0.5 MG/2 ML NEB NEB SCH ×2 (06:26→18:46)
--- NOTE | 2020-07-14 07:01 | NUR ---
DR MEJIA PAGED REGARDING K+ 3.0
[2020-07-14] MEDS ORDERED: POTASSIUM CHLORIDE 80 MEQ, LIDOCAINE 1% (LOCAL ANESTH.) 6 ML in SODIUM CHL 0.9% 500 ML IV ONE (07:15)
--- NOTE | 2020-07-14 08:25 | NUR ---
Received phone call from Dr. Mata informed patient of AM ABG and chest x-ray with new orders. This RN to input into system and will notify RT Alta of new orders.
--- NOTE | 2020-07-14 08:45 | NUR ---
SEDATION Fentanyl GTT turned off for CPAP trial. Will continue to monitor patient closely.
[2020-07-14] MEDS: POTASSIUM CHL 20MEQ/100ML 100 ML IV SCH ×4 (08:59→23:06)
[2020-07-14] MEDS: MEROPENEM 1GM IVPB 100 ML IV SCH (09:38)
[2020-07-14] MEDS: ASPirin 325 MG TAB PO SCH (09:39)
[2020-07-14] MEDS: CLOPIDOGREL BISULFATE 75 MG TAB PO SCH (09:39)
[2020-07-14] MEDS: PANTOPRAZOLE 40 MG/10 ML VIAL INJ IV SCH (09:40)
[2020-07-14] MEDS: INSULIN LANTUS (GLARGINE) 1 /0.01ml (100units/ml) SC SCH ×2 (09:45→20:53)
[2020-07-14] MEDS: METOPROLOL TARTRATE 25 MG TAB PO SCH ×2 (09:48→20:30)
[2020-07-14] MEDS: ACETYLCYSTEINE ORAL for CIN 20%(200MG/ML) 4ML PO SCH (10:14)
--- NOTE | 2020-07-14 10:25 | NUR ---
WOUND CARE NOTE: Wound care in to see patient per wound care request regarding "bilateral cheek bone pressure ulcers" that are noted by bedside nurse upon skin assessment. Bedside nurse took photograph of patient's wounds upon discovery for reference. Patient is 74 years old male with admitting diagnosis of Acute Hypoxic Resp Failure. Patient is resting in ICU low air loss bed in . 106. Patient is intubated and mechanically ventilated. Patient appears to be in no pain using Cunningham Berry Faces Pain Scale. His Chong score is 11. Skin/wound assessment done with the assistance of another nurse, MOY Hoover. Patient's Rt (1.5x2cm) and Lt (0.8x2cm) cheek noted with sacrum noted with intact, dark maroon, non-blanchable skin (Deep Tissue Injury) 0.6x0.8cm dark red intact skin also noted to patient's anterior medial upper lips, no drainage/odor noted, left open to air. On reports, skin issue noted upon repositioning of ET tube and holster. R.T. at bedside and aware of patient's skin integrity issue. R.T. routinely repositioning ET tube Q shift. Patient's sacral, buttocks and back are also examined, no other wound noted, no other pressure injury noted. Patient is receiving BID/PRN cleaning and application of Barrier cream to sacral, buttocks as preventative. Repositioned patient for comfort facing his Lt side, redistributed pressure points with pillows. Patient tolerated well. RECOMMENDATION: Leave bilateral cheek pressure injury open to air per MD order, Nursing to continue with BID/PRN cleaning and application of Barrier cream to sacral buttocks as preventative, Dietary consult, frequent turning and repositioning schedule as condition permits, redistribute pressure points with pillows, elevate heels on pillows, continue monitoring by wound care while patient is hospitalized. Addendum: 07/14/20 at 1512 by Erlinda Bernal RN Amended: Links added.
--- NOTE | 2020-07-14 11:26 | NUR ---
Nutrition Followup Notes Pt wt is 80.0 kg Pt is intubated off sedation and NPO for scheduled CPAP trial per RN. Pt with no distress. Est energy needs 8230-6428 kcal (20-23 kcal/kg BW 82.6kg) Est protein needs 66-83g (0.8-1g/kg BW r/t severe hypoalb) Will monitor and reassess prn. LABS: K 3.0 L, BUN 44 H, GLUC 114 H, CA 8.1 L. ALB 1.9 L GI: Pt had no BM today per RN doc. BS: 11 high risk. Refer to wound assessment report for further details. PES: 1) Inadequate oral intake r/t current medical condition aeb pt NPO with Jevity 1.2 at 30 ml/hr 2) Altered nutrition related labs r/t current and chronic medical condition aeb pt with elevated RFTs, hyperglycemia, hypoalb Comments Will followup in 2-3 days. 1) Continue to monitor po status, labs, skin 2) Refer pt to OPD on DC 3) Continue current plan of care
--- NOTE | 2020-07-14 12:15 | NUR ---
FAMILY Received phone call from patients sister Ashlie, confirmed password, and updated on patient condition.
--- NOTE | 2020-07-14 13:00 | NUR ---
MD Dr. Castro at bedside updated on patient condition with no new orders. Will continue to monitor patient closely.
[2020-07-14] MEDS ORDERED: levoFLOXacin 750MG 150 ML IV ONE (13:30)
[2020-07-14] MEDS: fentaNYL Drip 2500mCg/250mlNS 250 ML IV SCH ×2 (13:30→20:00)
--- NOTE | 2020-07-14 13:30 | NUR ---
MD Paged Dr. Aguilar to clarify new orders for Potassium awaiting for MD to call back.
--- NOTE | 2020-07-14 13:32 | NUR ---
assessment Patient is a 74 year old male who is in ICU on a vent. Per patients Sofi prior to admission patient lived home with her and was on hospice with [facility]. Patient was on 10L NC on discharge. Per Sofi patient was not getting enough oxygen so she called 911. I informed Sofi I will continue to monitor and follow up as appropriate for any post discharge needs after patient is extubated. Sofi verbalized understanding. Addendum: 07/14/20 at 1348 by Angelita SEGOVIA Amended: Links added.
[2020-07-14] MEDS: PROPOFOL 100 ML IV SCH (14:15)
[2020-07-14] MEDS: NOREPINEPHRINE 8 MG/250ML KIT 250 ML IV SCH (14:45)
--- NOTE | 2020-07-14 14:45 | NUR ---
FAMILY Received phone call from patients , confirmed correct password and updated on patient condition.
--- NOTE | 2020-07-14 15:20 | NUR ---
Paged Dr. Aguilar for the second time, awaiting for call back.
[2020-07-14] MEDS ORDERED: MEROPENEM 1GM IVPB 100 ML IV SCH (18:00)
--- NOTE | 2020-07-14 18:00 | NUR ---
MD Dr. Mata at bedside updated on patient condition with new orders for Precedex GTT if needed during shift superintendent caustic cresylate.
--- NOTE | 2020-07-14 19:30 | NUR ---
Opening shift note: Neuro: bilateral pupils 5/6 mm in size; brisk; accommodation present; bilateral extremities move with severe weakness; cough and gag positive. Cardio: Sinus tach 120s with PACs; systolic blood pressure 130s to 140s; pulses weak but all palpable; edema none noted. Respiratory; 8.0/26 at lip; intubated on 07/09. Settings pressure control 16, FiO2 40%, rate 16, PEEP 8, I time 0.9; anterior lung sounds clear throughout; oral secretions minimal clear, ET secretions clear thin small. GI; OGT clamped; bowel sounds hypoactive; last bowel movement is unknown. ; Mane inserted on 07/09/2020: urine is clear yellow. Skin; bilateral cheek deep tissue injuries open to air; lower lip open sore open to air; generalized scabbing and bruising to body. IVs: 18-gauge to the left upper arm hep-locked inserted on 07/09/2020; right IJ triple-lumen catheter inserted on 07/09/2020, fentanyl per protocol restarted related to patient's respiratory rate in low 30s; right hand 20-gauge Hep-Lock inserted on 07/09/2020. Pending orders for a.m. include chest x-ray, CMP, CBC, ABG. Per physician documentation CPAP trial for a.m. standing order for Precedex if needed. We will continue to reposition patient, perform oral care, and round as needed. Addendum: 07/14/20 at 2257 by SHELLY MONTALVO RN Patient is also status post left heart cath with Dr. Rivers on 07/13/2020 with successful PCI IV 90% CX stenosis was 0% residual stenosis per physician documentation. Patient has bilateral groin incisions that are covered with 2 x 2's and Tegaderm that are clean dry and intact, with left wrist incision covered with 4 x 4 Tegaderm clean dry intact as well
[2020-07-14] MEDS ORDERED: POTASSIUM CHL 20MEQ/100ML 200 ML IV ONE (20:02)
--- NOTE | 2020-07-14 20:06 | NUR ---
RT at bedside to change ventilator settings per Dr. Mata, lobster man. Per orders to obtain ABG again at 10 PM
[2020-07-14] MEDS: ATORVASTATIN 20 MG TAB PO SCH (20:30)
--- NOTE | 2020-07-14 21:39 | NUR ---
Precedex started per protocol related to patient's respiratory rate still intermittently in the high 30s with restlessness despite fentanyl drip being restarted
--- NOTE | 2020-07-14 22:00 | NUR ---
RT discussed ABG results with Dr. Mata, plastic products sales representative. No ventilator changes at this time, will notify RT if respiratory rate of the patient sustains in the 30s.
--- NOTE | 2020-07-14 23:03 | NUR ---
Rapid influenza AB swab sent to lab via [facility] system
[2020-07-15] VITALS (68 sets, daily range): BP systolic 67–156; BP diastolic 36–79
[2020-07-15] MEDS: IPRATROPIUM BROM 0.5 MG/2.5ML INH SOL NEB SCH ×4 (00:14→18:52)
[2020-07-15] MEDS: ALBUTEROL SULF 2.5 MG/0.5ML(0.5%) NEB SOLN NEB SCH ×4 (00:15→18:52)
--- NOTE | 2020-07-15 03:30 | NUR ---
Patient bathe/linen change Patient given complete CHG bath. Skin integrity assessed for any changes. Linens and gown changed. Patient repositioned for comfort.
[2020-07-15 04:48] LABS: Basophils # (auto) 0.1 10 ^3/uL (0-0.2); Basophils % (auto) 1.2 % (0.0-2.0); Eosinophils # (auto) 0.1 10 ^3/uL (0-0.8); Hematocrit 33.7 % (41.0-53.0); Hemoglobin 11.3 g/dL (13.5-17.5); Lymphocytes # (auto) 1.1 10 ^3/uL (0.4-5.4); Lymphocytes % (auto) 16.8 % (10.0-50.0); Mean Corpuscular Hemoglobin 28.8 pg (28.0-32.0); Mean Corpuscular Hgb Conc. 33.5 g/dL (32.0-36.0); Monocytes # (auto) 0.5 10 ^3/uL (0-1.3); Monocytes % (auto) 7.5 % (0.0-12.0); Neutrophils # (auto) 4.6 10 ^3/uL (1.6-8.6); Neutrophils % (auto) 72.5 % (37.0-80.0); Platelet Count (auto) 283 10^3/uL (140-450); Red Blood Cells 3.92 10^6/uL (4.5-5.90); Red Cell Distribution Width 15.8 % (11.8-14.3); White Blood Cell 6.3 10^3/uL (4.4-10.8)
[2020-07-15 05:33] LABS: Albumin 1.8 g/dL (3.4-5.0); BUN/Creatinine Ratio 30.8; Bilirubin, Total 0.9 mg/dL (0.2-1.0); Calcium 8.2 mg/dL (8.5-10.1); Potassium 4.4 mmol/L (3.5-5.1)
[2020-07-15] MEDS: FUROSEMIDE 40 MG/4 ML VIAL IV SCH (06:00)
[2020-07-15] MEDS: ACCU-CHEK COMFORT CURVE STRIP VI SCH ×4 (06:00→18:00)
[2020-07-15] MEDS: InsuLIN REG 1unit/0.01ml Soln (100units/ml) SC SCH ×4 (06:00→18:00)
--- NOTE | 2020-07-15 06:00 | NUR ---
Lasix held related to low blood pressure of 80/41. Patient is have significant urine output for shift 2050 ml.
[2020-07-15] MEDS: BUDESONIDE (INHALATION) 0.5 MG/2 ML NEB NEB SCH ×2 (06:02→18:52)
--- NOTE | 2020-07-15 08:55 | NUR ---
RESPIRATORY RT Crys at bedside and place patient on CPAP mode on ventilator. Will continue to monitor patient closely.
--- NOTE | 2020-07-15 08:55 | NUR ---
Respiratory note: PT PLACED ON CPAP TRIAL. PT AWAKE, ALERT AND RESPONSIVE. PT FOLLOWING COMMANDS. PS 8, CPAP 5, FI02 35%. TEST AND PROCEDURE EXPLAINED TO PT AND PT NODDED WITH UNDERSTANDING. PT TOLERATING WELL. WILL CONTINUE TO MONITOR.
[2020-07-15] MEDS ORDERED: ALBUMIN 25% 100 ML IV ONE (09:00)
[2020-07-15] MEDS: CLOPIDOGREL BISULFATE 75 MG TAB PO SCH (09:53)
[2020-07-15] MEDS: METOPROLOL TARTRATE 25 MG TAB PO SCH ×2 (09:53→20:00)
[2020-07-15] MEDS: ASPirin 325 MG TAB PO SCH (09:53)
[2020-07-15] MEDS: levoFLOXacin 750MG 150 ML IV SCH (09:54)
[2020-07-15] MEDS: PANTOPRAZOLE 40 MG/10 ML VIAL INJ IV SCH (09:54)
[2020-07-15] MEDS ORDERED: levoFLOXacin 750MG 150 ML IV SCH (10:00)
[2020-07-15] MEDS: INSULIN LANTUS (GLARGINE) 1 /0.01ml (100units/ml) SC SCH ×2 (10:11→20:32)
[2020-07-15] MEDS ORDERED: HYDROcodone-ACET 5/325MG TAB PO PRN (10:15)
--- NOTE | 2020-07-15 10:15 | NUR ---
MD Dr. Castro at bedside updated on patient condition.
--- NOTE | 2020-07-15 10:15 | NUR ---
Respiratory note: ABG RESULTS POST CPAP TRIAL CALLED TO DR. PORTILLO. NEW ORDERS FROM DR. PORTILLO EXTUBATE TO COOL MIST. NIF-32 VC 1200 RSBI 40 LEAK 500.
--- NOTE | 2020-07-15 10:30 | NUR ---
RESPIRATORY Per RT Crys called Dr Mata with post ABG results and received new orders to extubate patient. Patient extubated by RT Crys. Patient tolerated well and placed on cool mist mask at 30%. Will continue to monitor patient closely.
[2020-07-15] MEDS ORDERED: ALBUTEROL SULF 2.5 MG/0.5ML(0.5%) NEB SOLN NEB PRN (10:45)
[2020-07-15] MEDS ORDERED: IPRATROPIUM BROM 0.5 MG/2.5ML INH SOL NEB PRN (10:45)
--- NOTE | 2020-07-15 11:00 | NUR ---
FAMILY Received phone call from patients , provided correct password, and updated on patient condition.
--- NOTE | 2020-07-15 13:45 | NUR ---
RESPIRATORY RT Crys placed patient on oximizer at 10L, patient tolerating well sating at 94%. Will continue to monitor patient closely.
--- NOTE | 2020-07-15 14:00 | NUR ---
MD Dr. Castro in unit informed her that patient is very anxious and wanting to get out of bed and heart rate increasing to the 120's. New orders received and input into system. Will continue to monitor patient.
[2020-07-15] MEDS ORDERED: LORazepam 2MG/ML-1ML VIAL IV PRN (14:15)
--- NOTE | 2020-07-15 14:30 | NUR ---
FAMILY Received phone call from patients sister, Ashlie, correct password provided and updated on patient condition.
--- NOTE | 2020-07-15 15:30 | NUR ---
SWALLOW EVALUATION Cristin Speech therapist at bedside to perform a swallow evaluation on patient. Per Cristin patient tolerated a pureed diet with thin liquids. Will continue to titrate as tolerated by patient.
--- NOTE | 2020-07-15 16:07 | NUR ---
SWALLOW EVALUATED WITH PUREE AND THIN LIQUIDS. PT WAS EDENTULOUS DURING THE TRIALS. SIGNS OF CONFUSION NOTED DURING EVALUATION. MULTIPLE SWALLOWS NOTED ON FIRST TRIAL OF PUREE. RECOMMENDED PUREE/THIN. NO OVERT SIGNS OR SYMPTOMS OF ASPIRATION PRESENT. NURSING NOTIFIED.
--- NOTE | 2020-07-15 19:30 | NUR ---
Opening shift note: Neuro: bilateral pupils 5/6 mm in size; brisk; accommodation present; bilateral extremities move with severe weakness; cough and gag positive. Cardio: Sinus tach 120s with PACs; systolic blood pressure 150s; pulses weak but all palpable; edema none noted; Patient is also status post left heart cath with Dr. Rivers on 07/13/2020 with successful PCI IV 90% CX stenosis was 0% residual stenosis per physician documentation. Patient has bilateral groin incisions that are covered with 2 x 2's and Tegaderm that are clean dry and intact, with left wrist incision covered with 4 x 4 Tegaderm clean dry intact as well. Respiratory: currently on 10L via Oxymizer; intubated on 07/09; extubated on 07/15/20; anterior lung sounds coarse throughout; oral secretions minimal clear. GI: thin liquid/puree diet; bowel sounds active; last bowel movement is unknown. : Mane inserted on 07/09/2020: urine is clear yellow. Skin: bilateral cheek deep tissue injuries open to air; lower lip open sore open to air; generalized scabbing and bruising to body. IVs: 18-gauge to the left upper arm hep-locked inserted on 07/09/2020; right IJ triple-lumen catheter inserted on 07/09/2020; right hand 20-gauge Hep-Lock inserted on 07/09/2020. Pending orders for a.m. include chest x-ray, CMP, CBC. SHERRIE downgrade order put in by attending physician but no beds available at this time. We will continue to reposition patient, perform oral care, and round as needed.
[2020-07-15] MEDS: ATORVASTATIN 20 MG TAB PO SCH (20:31)
[2020-07-15] MEDS ORDERED: BUDESONIDE (INHALATION) 0.5 MG/2 ML NEB NEB SCH (22:00)
[2020-07-16] VITALS (23 sets, daily range): BP systolic 127–162; BP diastolic 63–84
[2020-07-16] MEDS: IPRATROPIUM BROM 0.5 MG/2.5ML INH SOL NEB SCH ×4 (01:28→19:25)
[2020-07-16] MEDS: ALBUTEROL SULF 2.5 MG/0.5ML(0.5%) NEB SOLN NEB SCH ×4 (01:28→19:25)
--- NOTE | 2020-07-16 02:50 | NUR ---
Patient bathe/linen change Patient given complete CHG bath. Skin integrity assessed for any changes; new scab found on the patient's posterior head with minimal sang. drainage; left YOMI. Partial linens changed. Patient repositioned for comfort.
--- NOTE | 2020-07-16 03:30 | NUR ---
Left IJ dressing changed using sterile technique. Dressing is difficult to stay on patient's skin related to his gurrola. Extra tegaderm applied. Addendum: 07/16/20 at 0650 by SHELLY MONTALVO RN Right IJ
[2020-07-16 04:25] LABS: Basophils # (auto) 0.1 10 ^3/uL (0-0.2); Basophils % (auto) 1.2 % (0.0-2.0); Eosinophils # (auto) 0.1 10 ^3/uL (0-0.8); Eosinophils % (auto) 2.3 % (0.0-7.0); Hematocrit 35.4 % (41.0-53.0); Hemoglobin 11.8 g/dL (13.5-17.5); Lymphocytes # (auto) 1.2 10 ^3/uL (0.4-5.4); Lymphocytes % (auto) 18.2 % (10.0-50.0); Mean Corpuscular Hemoglobin 28.7 pg (28.0-32.0); Mean Corpuscular Hgb Conc. 33.5 g/dL (32.0-36.0); Mean Corpuscular Volume 85.7 fL (80.0-100.0); Monocytes # (auto) 0.5 10 ^3/uL (0-1.3); Monocytes % (auto) 8.2 % (0.0-12.0); Neutrophils # (auto) 4.5 10 ^3/uL (1.6-8.6); Neutrophils % (auto) 70.1 % (37.0-80.0); Nucleated Red Blood Cells % 0.1 %; Platelet Count (auto) 282 10^3/uL (140-450); Red Blood Cells 4.13 10^6/uL (4.5-5.90); Red Cell Distribution Width 15.5 % (11.8-14.3); White Blood Cell 6.4 10^3/uL (4.4-10.8)
[2020-07-16 05:29] LABS: Albumin 2.3 g/dL (3.4-5.0); BUN/Creatinine Ratio 30.2; Bilirubin, Total 1.1 mg/dL (0.2-1.0); Calcium 8.5 mg/dL (8.5-10.1); Potassium 3.9 mmol/L (3.5-5.1); Total Protein 6.6 g/dL (6.4-8.2)
[2020-07-16] MEDS: InsuLIN REG 1unit/0.01ml Soln (100units/ml) SC SCH ×5 (06:00→23:35)
[2020-07-16] MEDS: ACCU-CHEK COMFORT CURVE STRIP VI SCH ×5 (06:00→23:35)
[2020-07-16] MEDS: BUDESONIDE (INHALATION) 0.5 MG/2 ML NEB NEB SCH ×2 (07:09→19:25)
[2020-07-16] MEDS: levoFLOXacin 750MG 150 ML IV SCH (09:44)
[2020-07-16] MEDS: PANTOPRAZOLE 40 MG/10 ML VIAL INJ IV SCH (09:44)
[2020-07-16] MEDS: ASPirin 325 MG TAB PO SCH (09:45)
[2020-07-16] MEDS: CLOPIDOGREL BISULFATE 75 MG TAB PO SCH (09:46)
[2020-07-16] MEDS: METOPROLOL TARTRATE 25 MG TAB PO SCH ×2 (09:46→20:13)
[2020-07-16] MEDS: INSULIN LANTUS (GLARGINE) 1 /0.01ml (100units/ml) SC SCH ×2 (10:03→20:13)
--- NOTE | 2020-07-16 12:06 | NUR ---
IN TO SEE PT. HE WANT PT TO BE UP IN CHAIR BY PT.
--- NOTE | 2020-07-16 14:06 | NUR ---
Nutrition Followup Notes Wt: 76.2 kg Pt`s extubated 07/15 with PT and MD at bedside. pt now advanced to pureed diet with no PO recorded yet Est energy needs 4843-2218 kcal (20-23 kcal/kg BW 82.6kg) , Est protein needs 66-83g (0.8-1g/kg BW r/t severe hypoalb) Will monitor and reassess prn. LABS: BUN 29 H PIETRO 1.1 H ALB 2.3 L GI: Pt had no BM today per RN doc. BS: 11 high risk. Refer to wound assessment report for further details. PES: 1) Inadequate oral intake r/t current medical condition aeb pt NPO with Jevity 1.2 at 30 ml/hr 2) Altered nutrition related labs r/t current and chronic medical condition aeb pt with elevated RFTs, hyperglycemia, hypoalb Comments: Continue to monitor po status, labs, skin Will followup in 3-5 days. Rec: 1) continue assistance with meals. 2) consider ensure Enlive 1 carton bid if PO is low. 3)Continue current plan of care
--- NOTE | 2020-07-16 14:40 | NUR ---
PT'S CALLED TO GET AN UPDATE ON PT'S CONDITION. I UPDATED HER ON PT'S CONDITION. CURRENT OXYGENATION STATUS AND PLAN FOR PHYSICAL THERAPY INCREASE PT'S MOBILITY.
--- NOTE | 2020-07-16 19:30 | NUR ---
Opening shift note: Neuro: A&Ox-3-4; bilateral pupils 5/6 mm in size; brisk; accommodation present; bilateral extremities move with severe weakness; cough and gag positive. Cardio: Sinus tach 100s with PACs; systolic blood pressure 120s; pulses all palpable; edema none noted; Patient is also status post left heart cath with Dr. Rivers on 07/13/2020 with successful PCI IV 90% CX stenosis was 0% residual stenosis per physician documentation. Patient has bilateral groin incisions that are covered with 2 x 2's and Tegaderm that are clean dry and intact, with left wrist incision covered with 4 x 4 Tegaderm clean dry intact as well. Respiratory: currently on 6L via Oxymizer; intubated on 07/09; extubated on 07/15/20; anterior lung sounds clear throughout; diminished in bases; oral secretions minimal clear. GI: thin liquid/puree diet; bowel sounds active; last bowel movement is unknown. : Mane inserted on 07/09/2020: urine is clear yellow/with beckham color in tubing. Skin: bilateral cheek deep tissue injuries open to air; lower lip open sore open to air; generalized scabbing and bruising to body. IVs: 18-gauge to the left upper arm hep-locked inserted on 07/09/2020; right IJ triple-lumen catheter inserted on 07/09/2020; right hand 20-gauge Hep-Lock inserted on 07/09/2020. Pending orders for a.m. include chest x-ray, CMP, CBC, and physical therapy consultation. SHERRIE downgrade order put in by attending physician but no beds available at this time. We will continue to reposition patient, perform oral care, and round as needed.
[2020-07-16] MEDS: ATORVASTATIN 20 MG TAB PO SCH (20:13)
--- NOTE | 2020-07-16 23:36 | NUR ---
Midnight insulin SS held related to patient's poor appetite. Currently BS is 133. Refusing to eat all day and only took bites of applesauce.
[2020-07-17] VITALS (21 sets, daily range): BP systolic 111–142; BP diastolic 52–69
[2020-07-17] MEDS: ALBUTEROL SULF 2.5 MG/0.5ML(0.5%) NEB SOLN NEB SCH ×5 (01:14→22:53)
[2020-07-17] MEDS: IPRATROPIUM BROM 0.5 MG/2.5ML INH SOL NEB SCH ×5 (01:14→22:53)
[2020-07-17] MEDS: InsuLIN REG 1unit/0.01ml Soln (100units/ml) SC SCH ×3 (06:00→18:00)
[2020-07-17] MEDS: ACCU-CHEK COMFORT CURVE STRIP VI SCH ×3 (06:00→18:00)
[2020-07-17] MEDS: BUDESONIDE (INHALATION) 0.5 MG/2 ML NEB NEB SCH ×2 (06:07→18:50)
[2020-07-17 06:55] LABS: Basophils # (auto) 0 10 ^3/uL (0-0.2); Basophils % (auto) 0.8 % (0.0-2.0); Eosinophils # (auto) 0.1 10 ^3/uL (0-0.8); Hematocrit 36.4 % (41.0-53.0); Hemoglobin 12.2 g/dL (13.5-17.5); Lymphocytes # (auto) 1.5 10 ^3/uL (0.4-5.4); Lymphocytes % (auto) 25.5 % (10.0-50.0); Mean Corpuscular Hemoglobin 28.8 pg (28.0-32.0); Mean Corpuscular Hgb Conc. 33.6 g/dL (32.0-36.0); Mean Corpuscular Volume 85.8 fL (80.0-100.0); Monocytes # (auto) 0.5 10 ^3/uL (0-1.3); Monocytes % (auto) 8.6 % (0.0-12.0); Neutrophils # (auto) 3.8 10 ^3/uL (1.6-8.6); Neutrophils % (auto) 63.1 % (37.0-80.0); Nucleated Red Blood Cells % 0.2 %; Platelet Count (auto) 252 10^3/uL (140-450); Red Blood Cells 4.24 10^6/uL (4.5-5.90)
[2020-07-17 07:32] LABS: Albumin 2.3 g/dL (3.4-5.0); Bilirubin, Total 0.9 mg/dL (0.2-1.0); Calcium 9.1 mg/dL (8.5-10.1); Potassium 3.9 mmol/L (3.5-5.1); Total Protein 6.9 g/dL (6.4-8.2)
--- NOTE | 2020-07-17 08:30 | NUR ---
ASSESSMENT PT AWAKE AND A/O TO SELFAND . ABLE TO MOVE ALL EXTREMITIES BUT PT IS WEAK. LUNGS CLEAR AND ON OXYMIZER AT 6 L/M WITH O2 SAT OF 96%. TELE SR 97. PALPABLE PULSES TO ALL EXTREMITIES WITH NO EDEMA NOTED. ABD SOFT WITH + BOWEL SOUNDS NOTED. QUIÑONES CATHETER DRAINING YELLOW URINE WITH SEDIMENT. BRUISING NOTED TO ABD AND TO LEFT HIP. ASSISTED PT WITH BREAKFAST. WOULD ONLY TAKE A FEW BITES OF THE PUREED DIET BUT IS TAKING FLUIDS WELL. TURNED FOR COMFORT. CONTINUE TO MONITOR.
--- NOTE | 2020-07-17 08:30 | NUR ---
MD VISIT PT SEEN AND EXAMINED BY DR ELIZABETH. MAYBE DOWNGRADED TO TELEMETRY.
--- NOTE | 2020-07-17 09:30 | NUR ---
UP TO CHAIR WITH ASSISTANCE FROM PHYSICAL THERAPIST
[2020-07-17] MEDS: CLOPIDOGREL BISULFATE 75 MG TAB PO SCH (09:31)
[2020-07-17] MEDS: levoFLOXacin 750MG 150 ML IV SCH (09:31)
[2020-07-17] MEDS: PANTOPRAZOLE 40 MG/10 ML VIAL INJ IV SCH (09:31)
[2020-07-17] MEDS: METOPROLOL TARTRATE 25 MG TAB PO SCH ×2 (09:32→21:30)
[2020-07-17] MEDS: ASPirin 81 mg TAB PO SCH (09:44)
--- NOTE | 2020-07-17 10:05 | NUR ---
Lydia MURPHY, ASSISTED PT BACK TO BED. MAX ASSIST.
[2020-07-17] MEDS: INSULIN LANTUS (GLARGINE) 1 /0.01ml (100units/ml) SC SCH ×2 (11:27→21:38)
--- NOTE | 2020-07-17 14:00 | NUR ---
TURNED FOR COMFORT AND PT DENIES ANY PAIN. BED ALARM ON FOR PT SAFETY
--- NOTE | 2020-07-17 18:00 | NUR ---
NUTRITION FED PT BUT HE WOULD ONLY TAKE A FEW BITES AND THEN DRINKING MILK AND WATER.
--- NOTE | 2020-07-17 19:00 | NUR ---
Opening Shift Note Assumed care of patient, awake and alert with some mild confusion. No S/S of distress/SOB or pain. Instructed on POC and to call for assist PRN, will continue to monitor for changes Q1hr and PRN.
--- NOTE | 2020-07-17 19:04 | NUR ---
Respiratory note: INCREASED FIO2 TO 8L VIA OXYMIZER DUE TO SPO2 READING OF 85%. PT INSTRUCTED TO RELAX AND BREATHE THROUGH HIS NOSE. SPO2 IMPROVED TO 90%. WILL TITRATE FIO2 TOLERATED
--- NOTE | 2020-07-17 19:30 | NUR ---
REPORT REPORT GIVEN TO RICHIE BURRIS RN.
[2020-07-17] MEDS: ATORVASTATIN 20 MG TAB PO SCH (21:30)
--- NOTE | 2020-07-17 22:51 | NUR ---
Report given to MOY Dumont. Patient being transferred to tele unit.
--- NOTE | 2020-07-17 23:02 | NUR ---
Patient being transferred to tele unit via protocol.
--- NOTE | 2020-07-17 23:26 | NUR ---
ICU patient trans to tele floor SBAR faxed and confirmed receipt by . WINDY CAMPA transfered to [facility] via gurney on cardiac cath lab technologist and portable 02. All patient medications and personal belongings transfered with patient to receiving floor. Patient alert and oriented x2.jara catheter in place, CDI, bag off the floor, catheter free of kinks, patent and draining. oxymizer 6L with O2 sat of 98%, bed in low locked position, bed alarm on, call light within reach.
[2020-07-18] MEDS: ACCU-CHEK COMFORT CURVE STRIP VI SCH ×4 (00:08→18:07)
--- NOTE | 2020-07-18 02:00 | NUR ---
turn patient to right side. patient no SOB, denies any pain. tolerated. will continue to monitor.
[2020-07-18] MEDS: InsuLIN REG 1unit/0.01ml Soln (100units/ml) SC SCH ×4 (05:29→18:30)
[2020-07-18] MEDS: BUDESONIDE (INHALATION) 0.5 MG/2 ML NEB NEB SCH ×2 (06:00→23:36)
[2020-07-18] MEDS: IPRATROPIUM BROM 0.5 MG/2.5ML INH SOL NEB SCH ×4 (06:00→23:36)
[2020-07-18] MEDS: ALBUTEROL SULF 2.5 MG/0.5ML(0.5%) NEB SOLN NEB SCH ×4 (06:00→23:36)
[2020-07-18 06:07] LABS: Basophils # (auto) 0.1 10 ^3/uL (0-0.2); Basophils % (auto) 1.3 % (0.0-2.0); Eosinophils # (auto) 0.2 10 ^3/uL (0-0.8); Hematocrit 34.7 % (41.0-53.0); Hemoglobin 11.6 g/dL (13.5-17.5); Lymphocytes # (auto) 1.6 10 ^3/uL (0.4-5.4); Lymphocytes % (auto) 27.6 % (10.0-50.0); Mean Corpuscular Hemoglobin 28.9 pg (28.0-32.0); Mean Corpuscular Hgb Conc. 33.5 g/dL (32.0-36.0); Mean Corpuscular Volume 86.3 fL (80.0-100.0); Monocytes # (auto) 0.7 10 ^3/uL (0-1.3); Monocytes % (auto) 12.4 % (0.0-12.0); Neutrophils # (auto) 3.3 10 ^3/uL (1.6-8.6); Neutrophils % (auto) 55.7 % (37.0-80.0); Nucleated Red Blood Cells % 0.1 %; Platelet Count (auto) 227 10^3/uL (140-450); Red Blood Cells 4.02 10^6/uL (4.5-5.90); Red Cell Distribution Width 16.2 % (11.8-14.3)
[2020-07-18 06:42] LABS: Potassium 3.5 mmol/L (3.5-5.1)
[2020-07-18 07:16] LABS: Albumin 2.2 g/dL (3.4-5.0); BUN/Creatinine Ratio 35.1; Bilirubin, Total 0.6 mg/dL (0.2-1.0); Calcium 8.3 mg/dL (8.5-10.1); Total Protein 6.5 g/dL (6.4-8.2)
--- NOTE | 2020-07-18 07:30 | NUR ---
Opening Shift Note Assuming care of patient at this time. Patient is awake and alert. Patient is oriented to himself, hospital, and situation. However, patient is unsure of the year, but patient does refer to year as, "the year Ulises Mendiola lost the election." Patient denies pain. Patient shows no signs or symptoms of distress or shortness of breath. Bed is locked and lowered with side rails up x2. Instructed patient on the plan of care for today and to call for assistance as needed. Call light within reach. Will continue to round hourly and as needed.
[2020-07-18] MEDS: Glucerna Carbsteady SHAKE Vanilla 8oz PO SCH ×3 (08:45→18:09)
[2020-07-18 08:47] VITALS: BP 126/66
[2020-07-18] MEDS: levoFLOXacin 750MG 150 ML IV SCH (10:40)
[2020-07-18] MEDS: ASPirin 81 mg TAB PO SCH (10:40)
[2020-07-18] MEDS: PANTOPRAZOLE 40 MG/10 ML VIAL INJ IV SCH (10:40)
[2020-07-18] MEDS: INSULIN LANTUS (GLARGINE) 1 /0.01ml (100units/ml) SC SCH ×2 (10:41→22:16)
[2020-07-18] MEDS: CLOPIDOGREL BISULFATE 75 MG TAB PO SCH (10:42)
[2020-07-18] MEDS: METOPROLOL TARTRATE 25 MG TAB PO SCH ×2 (10:43→21:57)
[2020-07-18 11:49] VITALS: BP 114/61
[2020-07-18 13:00] VITALS: BP 130/58
--- NOTE | 2020-07-18 14:46 | NUR ---
re-assessment re: ss consults Per first ss consult DC planning, unsure about hospice or SNF. Per second ss consult SNF placement for rehab. I called patients Soif. Per Sofi she wants SNF placement for patient at [facility]. Per Sofi if rehab cannot take patient she is requesting [facility]. MD order has been sent to rehab and [facility]. Waiting on reply back now. Addendum: 07/18/20 at 1450 by Angelita Corley Amended: Links added.
--- NOTE | 2020-07-18 18:46 | NUR ---
Respiratory note: PT REFUSED MED NEB TX. NO RESPIRATORY DISTRESS AT THIS TIME. SITTER CURRENTLY FEEDING PT. SITTER MADE AWARE TO CALL RT FOR A PRN TX IF RESPIRATORY DISTRESS PRESENTS.
--- NOTE | 2020-07-18 19:20 | NUR ---
OPENING NOTE- NOC SHIFT ASSUMED PATIAENT CARE. PATIENT IS COMFORTABLE IN BED, RESTING EYES CLOSED. BED IS LOCKED AT LOWEST POSITION, BED RAILS UP X2 AND HEAD OF BED IS UP >45 DEGREES. NO S/SX OF DISTRESS, SOB OR PAIN. WILL CONTINUE TO MONITOR Q1H AND PRN.
--- NOTE | 2020-07-18 19:35 | NUR ---
Closing Shift Note Patient resting in bed. No distress noted. Report given. Will endorse care to the hose coupling joiner RN. national sales RN aware to have Covid sample sent tonight in case possible discharge to SNF tomorrow.
[2020-07-18 21:54] VITALS: BP 98/51
[2020-07-18 22:00] VITALS: BP 145/68
[2020-07-18] MEDS: ATORVASTATIN 20 MG TAB PO SCH (22:16)
--- NOTE | 2020-07-18 22:40 | NUR ---
CENTRAL TELE BOX 46 SENT TO MONITORS FOR WEST BOX EXCHANGE
--- NOTE | 2020-07-18 22:45 | NUR ---
COVID SWAB SENT TO LAB
[2020-07-19] MEDS: ACCU-CHEK COMFORT CURVE STRIP VI SCH ×4 (01:01→17:57)
--- NOTE | 2020-07-19 04:50 | NUR ---
COMPLETE BED LINEN AND GOWN CHANGE.
[2020-07-19 05:00] VITALS: BP 140/66
[2020-07-19] MEDS: BUDESONIDE (INHALATION) 0.5 MG/2 ML NEB NEB SCH ×2 (05:53→18:53)
[2020-07-19] MEDS: IPRATROPIUM BROM 0.5 MG/2.5ML INH SOL NEB SCH ×4 (05:53→23:50)
[2020-07-19] MEDS: ALBUTEROL SULF 2.5 MG/0.5ML(0.5%) NEB SOLN NEB SCH ×4 (05:53→23:50)
[2020-07-19] MEDS: InsuLIN REG 1unit/0.01ml Soln (100units/ml) SC SCH ×4 (06:00→17:57)
--- NOTE | 2020-07-19 06:30 | NUR ---
RT AT BEDSIDE
[2020-07-19 08:00] VITALS: BP 129/61
--- NOTE | 2020-07-19 08:11 | NUR ---
CLOSING NOTE- NOC SHIFT ENDORSED PATIENT CARE TO DAY SHIFT NURSE. PATIENT IS COMFORTABLE IN BED. NO S/SX OF DISTRESS, SOB OR PAIN.
[2020-07-19] MEDS: Glucerna Carbsteady SHAKE Vanilla 8oz PO SCH ×3 (08:30→17:58)
--- NOTE | 2020-07-19 08:30 | NUR ---
Patient sitting in bed, ready to eat breakfast. Denies any pain at this time. Patient stable.
[2020-07-19] MEDS: METOPROLOL TARTRATE 25 MG TAB PO SCH ×2 (09:05→22:28)
[2020-07-19] MEDS: CLOPIDOGREL BISULFATE 75 MG TAB PO SCH (09:05)
[2020-07-19] MEDS: levoFLOXacin 750MG 150 ML IV SCH (09:05)
[2020-07-19] MEDS: PANTOPRAZOLE 40 MG/10 ML VIAL INJ IV SCH (09:05)
[2020-07-19] MEDS: ASPirin 81 mg TAB PO SCH (09:05)
--- NOTE | 2020-07-19 09:05 | NUR ---
Scheduled po, subq, IVP, and IV abx given per order. Patient resting comfortably in bed with no distress noted. Patient stable.
[2020-07-19] MEDS: INSULIN LANTUS (GLARGINE) 1 /0.01ml (100units/ml) SC SCH ×2 (09:06→22:29)
--- NOTE | 2020-07-19 10:18 | NUR ---
Patient stable; resting quietly in bed with Dr. Grant at bedside.
--- NOTE | 2020-07-19 11:43 | NUR ---
Patient resting comfortably in bed with Cy, RT at bedside. Patient stable.
[2020-07-19 12:00] VITALS: BP 120/73
--- NOTE | 2020-07-19 12:23 | NUR ---
Checked blood sugar: 125 mg/dl - no coverage required. Patient stable at this time.
--- NOTE | 2020-07-19 14:00 | NUR ---
Patient resting comfortably in bed with no distress noted at this time. Patient stable.
--- NOTE | 2020-07-19 14:34 | NUR ---
Nutrition Followup Notes Wt: 79.5 kg Pt was alert and oriented at time of rounds. Pt is s/p extubation with diet advanced to a pureed diet. Pt reports appetite is good, good to finally eat again. Pt reports eating most of his breakfast this morning prior to my rounds. Pt has consumed 25% of each meal since diet advanced per RN note. Pt is with Glucerna 1 carton TID Est energy needs 1392-1077 kcal (20-23 kcal/kg BW 82.6kg) , Est protein needs 66-83g (0.8-1g/kg BW r/t severe hypoalb) Will monitor and reassess prn. LABS: GLUC 115H, Ca 8.3L, BUN 33H, Alb 2.3L GI: Pt had no BM today per RN doc. BS: 14 mod risk. Refer to wound assessment report for further details. PES: Partially resolved, diet advanced with inadequate po intake 1) Inadequate oral intake r/t current medical condition aeb pt NPO with Jevity 1.2 at 30 ml/hr 2) Altered nutrition related labs r/t current and chronic medical condition aeb pt with elevated RFTs, hyperglycemia, hypoalb Comments: Continue to monitor po status, labs, skin Will followup in 3-5 days. Rec: 1) continue assistance with meals. 2)Continue current plan of care
--- NOTE | 2020-07-19 16:20 | NUR ---
Patient resting quietly in bed with no complaint of pain. Patient stable.
[2020-07-19 17:00] VITALS: BP 141/71
--- NOTE | 2020-07-19 17:25 | NUR ---
re-assessment Per Vidhya at [facility] she will not have any beds for a week or two. Per Marion at [facility] she has accepted patient to room [address] Grant is the accepting MD. Per Marion at [facility] she will set up transport on discharge. Call Report to [phone]. I will follow up in AM with discharge. Addendum: 07/19/20 at 1731 by Angelita SEGOVIA Amended: Links added.
--- NOTE | 2020-07-19 17:59 | NUR ---
Checked blood sugar: 96 mg/dl - no coverage required. Patient resting quietly in bed with no respiratory distress noted. Patient stable.
--- NOTE | 2020-07-19 18:35 | NUR ---
Patient finished dinner and now resting comfortably in bed with no respiratory distress or complaint of pain. Patient stable throughout shift.
--- NOTE | 2020-07-19 19:10 | NUR ---
OPENING NOTE- NOC SHIFT ASSUMED PATIENT CARE. PATIENT RESTING COMFORTABLE IN BED. NO S/SX OF DISTRESS, SOB OR PAIN. PATIENT IS ON 6L OXIMIZER. WILL CONTINUE TO MONITOR Q1H AND PRN.
[2020-07-19 22:00] VITALS: BP 140/75
[2020-07-19] MEDS: ATORVASTATIN 20 MG TAB PO SCH (22:27)
[2020-07-20] MEDS: ACCU-CHEK COMFORT CURVE STRIP VI SCH ×4 (00:28→18:07)
[2020-07-20] MEDS: InsuLIN REG 1unit/0.01ml Soln (100units/ml) SC SCH ×4 (00:34→18:00)
[2020-07-20 05:00] VITALS: BP 133/65
[2020-07-20] MEDS: IPRATROPIUM BROM 0.5 MG/2.5ML INH SOL NEB SCH ×4 (07:20→23:42)
[2020-07-20] MEDS: ALBUTEROL SULF 2.5 MG/0.5ML(0.5%) NEB SOLN NEB SCH ×4 (07:21→23:42)
[2020-07-20] MEDS: BUDESONIDE (INHALATION) 0.5 MG/2 ML NEB NEB SCH ×2 (07:21→18:19)
[2020-07-20 09:00] VITALS: BP 133/71
[2020-07-20] MEDS: Glucerna Carbsteady SHAKE Vanilla 8oz PO SCH ×3 (09:28→18:07)
[2020-07-20] MEDS: levoFLOXacin 750MG 150 ML IV SCH (09:28)
[2020-07-20] MEDS: PANTOPRAZOLE 40 MG TAB PO SCH (09:29)
[2020-07-20] MEDS: ASPirin 81 mg TAB PO SCH (09:29)
[2020-07-20] MEDS: CLOPIDOGREL BISULFATE 75 MG TAB PO SCH (09:29)
[2020-07-20] MEDS: METOPROLOL TARTRATE 25 MG TAB PO SCH (09:30)
[2020-07-20] MEDS: INSULIN LANTUS (GLARGINE) 1 /0.01ml (100units/ml) SC SCH (09:35)
--- NOTE | 2020-07-20 10:00 | NUR ---
FAMILY CALL SELENE CALLED FOR PATIENT STATUS UPDATE. ALL QUESTIONS AND CONCERNS ADDRESSED. SELENE STATES THAT SHE WILL BE BRINGING PATIENT'S PERSONAL PHONE TO [facility] AND THAT SHE WOULD LIKE HIS NURSE TO PLACE A VIDEO CALL ON IT SO THAT FAMILY CAN SEE HIM. CALL WAS THEN TRANSFERRED TO PATIENT ROOM.
--- NOTE | 2020-07-20 10:52 | NUR ---
PATIENT PLACED ON 5L NC PER DR ELIZABETH
--- NOTE | 2020-07-20 12:30 | NUR ---
WOUND CARE NOTE: Wound care in to see patient for reevaluation of wounds/pressure injuries. Patient has been extubated and now in [place] [facility]/telemetry unit. Patient is resting in bed in Rm. 294B. Patient is awake,alert and able to verbalize needs. Patient appears to be in no pain using Cunningham Berry Faces Pain Scale. He needs assistance in turning and repositioning and his His Chong score is 11. 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 Skin is intact with red surrounding skin, no drainage/odor noted,left open to air. Patient's turned to his left side to examine his sacral, buttocks and back with the assistance of his nurse, MOY Kruse. No other wound noted, no other pressure injury noted. Patient is receiving BID/PRN cleaning and application of Barrier cream to sacral, buttocks as preventative. Repositioned patient for comfort facing his Lt side, redistributed pressure points with pillows. Patient tolerated well. MOY Kruse at bedside. RECOMMENDATION: Continuation of all wound care order MD prescribed, continue with skin/wound plan of care, continue monitoring by wound care while patient is hospitalized Addendum: 07/20/20 at 1550 by Erlinda Bernal RN Amended: Links added.
[2020-07-20 13:00] VITALS: BP 115/72
--- NOTE | 2020-07-20 13:15 | NUR ---
Patient received, resting comfortably in bed. No obvious distress noted. Will continue to monitor.
--- NOTE | 2020-07-20 13:44 | NUR ---
CLOSING NOTE- NOC SHIFT ENDORSED PATIENT CARE TO DAY SHIFT NURSE BERNARDINO WINTER. PATIENT IS RESTING COMFORTABLE IN BED.
[2020-07-20 16:42] VITALS: BP 119/58
[2020-07-20 18:22] VITALS: BP 119/58
[2020-07-20 22:00] VITALS: BP 125/60
[2020-07-21] MEDS: ATORVASTATIN 20 MG TAB PO SCH ×2 (00:03→21:50)
[2020-07-21] MEDS: METOPROLOL TARTRATE 25 MG TAB PO SCH ×3 (00:04→21:50)
[2020-07-21] MEDS: ACCU-CHEK COMFORT CURVE STRIP VI SCH ×4 (00:07→18:02)
[2020-07-21] MEDS: INSULIN LANTUS (GLARGINE) 1 /0.01ml (100units/ml) SC SCH ×3 (00:09→21:50)
[2020-07-21] MEDS: InsuLIN REG 1unit/0.01ml Soln (100units/ml) SC SCH ×4 (00:13→18:00)
[2020-07-21 05:00] VITALS: BP 135/75
[2020-07-21] MEDS: IPRATROPIUM BROM 0.5 MG/2.5ML INH SOL NEB SCH ×3 (05:59→18:26)
[2020-07-21] MEDS: ALBUTEROL SULF 2.5 MG/0.5ML(0.5%) NEB SOLN NEB SCH ×3 (05:59→18:26)
[2020-07-21] MEDS: BUDESONIDE (INHALATION) 0.5 MG/2 ML NEB NEB SCH ×2 (05:59→18:26)
[2020-07-21 09:00] VITALS: BP 130/68
[2020-07-21] MEDS: Glucerna Carbsteady SHAKE Vanilla 8oz PO SCH ×3 (09:27→18:02)
[2020-07-21] MEDS: levoFLOXacin 750MG 150 ML IV SCH (09:27)
[2020-07-21] MEDS: PANTOPRAZOLE 40 MG TAB PO SCH (09:27)
[2020-07-21] MEDS: ASPirin 81 mg TAB PO SCH (09:27)
[2020-07-21] MEDS: CLOPIDOGREL BISULFATE 75 MG TAB PO SCH (09:27)
[2020-07-21 13:00] VITALS: BP 118/68
[2020-07-21 16:52] VITALS: BP 124/67
--- NOTE | 2020-07-21 19:40 | NUR ---
Opening Shift Note Assumed care of patient, awake and alert x3. No S/S of distress/SOB or pain. Patient is on oxygen at 4L/min via nasal cannula. Instructed on POC and to call for assist PRN. All questions and concerns answered, will continue to monitor for changes Q1hr and PRN.
[2020-07-21 22:00] VITALS: BP 141/66
[2020-07-22] MEDS: IPRATROPIUM BROM 0.5 MG/2.5ML INH SOL NEB SCH ×4 (00:13→18:48)
[2020-07-22] MEDS: ALBUTEROL SULF 2.5 MG/0.5ML(0.5%) NEB SOLN NEB SCH ×4 (00:13→18:48)
[2020-07-22] MEDS: ACCU-CHEK COMFORT CURVE STRIP VI SCH ×4 (00:13→18:37)
[2020-07-22 05:00] VITALS: BP 119/61
--- NOTE | 2020-07-22 06:00 | NUR ---
Patient was incontinent of a BM, patient cleaned, new linens provided and repositioned for comfort. Call light is within reach.
[2020-07-22] MEDS: InsuLIN REG 1unit/0.01ml Soln (100units/ml) SC SCH ×4 (06:13→18:00)
[2020-07-22] MEDS: BUDESONIDE (INHALATION) 0.5 MG/2 ML NEB NEB SCH ×2 (06:36→18:48)
[2020-07-22 07:55] LABS: Basophils # (auto) 0.1 10 ^3/uL (0-0.2); Basophils % (auto) 1.8 % (0.0-2.0); Eosinophils # (auto) 0.3 10 ^3/uL (0-0.8); Eosinophils % (auto) 3.9 % (0.0-7.0); Hematocrit 34.8 % (41.0-53.0); Hemoglobin 11.7 g/dL (13.5-17.5); Lymphocytes # (auto) 1.7 10 ^3/uL (0.4-5.4); Lymphocytes % (auto) 26.8 % (10.0-50.0); Mean Corpuscular Hemoglobin 28.8 pg (28.0-32.0); Mean Corpuscular Hgb Conc. 33.6 g/dL (32.0-36.0); Mean Corpuscular Volume 85.8 fL (80.0-100.0); Monocytes # (auto) 0.6 10 ^3/uL (0-1.3); Monocytes % (auto) 8.7 % (0.0-12.0); Neutrophils # (auto) 3.8 10 ^3/uL (1.6-8.6); Neutrophils % (auto) 58.8 % (37.0-80.0); Nucleated Red Blood Cells % 0.1 %; Platelet Count (auto) 211 10^3/uL (140-450); Red Blood Cells 4.05 10^6/uL (4.5-5.90); Red Cell Distribution Width 16.6 % (11.8-14.3); White Blood Cell 6.5 10^3/uL (4.4-10.8)
[2020-07-22 08:10] LABS: Potassium 3.6 mmol/L (3.5-5.1)
[2020-07-22 08:19] LABS: Albumin 2.3 g/dL (3.4-5.0); BUN/Creatinine Ratio 23.3; Bilirubin, Total 0.6 mg/dL (0.2-1.0); Calcium 8.4 mg/dL (8.5-10.1); Total Protein 6.5 g/dL (6.4-8.2)
--- NOTE | 2020-07-22 08:30 | NUR ---
Opening Shift Note Assumed care of patient, awake and alert to person, place, and time. No S/S of distress/SOB or pain. Instructed on POC and to call for assist PRN, will continue to monitor for changes Q1hr and PRN.
[2020-07-22 09:00] VITALS: BP 130/66
[2020-07-22] MEDS: CLOPIDOGREL BISULFATE 75 MG TAB PO SCH (09:19)
[2020-07-22] MEDS: levoFLOXacin 750MG 150 ML IV SCH (09:19)
[2020-07-22] MEDS: ASPirin 81 mg TAB PO SCH (09:19)
[2020-07-22] MEDS: PANTOPRAZOLE 40 MG TAB PO SCH (09:19)
[2020-07-22] MEDS: Glucerna Carbsteady SHAKE Vanilla 8oz PO SCH ×3 (09:20→18:37)
[2020-07-22] MEDS: METOPROLOL TARTRATE 25 MG TAB PO SCH (09:20)
[2020-07-22] MEDS: INSULIN LANTUS (GLARGINE) 1 /0.01ml (100units/ml) SC SCH (09:29)
--- NOTE | 2020-07-22 12:22 | NUR ---
Nutrition Followup Notes Wt: 79.4 kg Pt was sleeping at time of rounds. Pt is s/p extubation with diet advanced to a Pureed diet. Pt appetite is improved aeb ave 54% PO intake over 2 days per RN doc. Pt is also with Glucerna 1 carton TID. Est energy needs 2696-7882 kcal (20-23 kcal/kg BW 82.6kg) , Est protein needs 66-83g (0.8-1g/kg BW r/t severe hypoalb) Will monitor and reassess prn. LABS: GLUC 147H, Ca 8.4L, BUN 21H, Alb 2.3L GI: Pt had 1 BM today per RN doc. BS: 14 mod risk. Refer to wound assessment report for further details. PES: Partially resolved, diet advanced with improved but still inadequate PO intake 1) Inadequate oral intake r/t current medical condition aeb pt NPO with Jevity 1.2 at 30 ml/hr 2) Altered nutrition related labs r/t current and chronic medical condition aeb pt with elevated RFTs, hyperglycemia, hypoalb Comments: Continue to monitor PO status, labs, skin Will followup in 3-5 days. Rec: 1) Continue assistance with meals, carefully monitoring PO intake to gradually meet at least 75% of meals. 2) Continue current plan of care
[2020-07-22 13:06] VITALS: BP 124/65
--- NOTE | 2020-07-22 14:10 | NUR ---
SNF Transfer Called [facility] and they are arranging transport and will call RN with [facility]. Awaiting call back from Kita WINTER to give report.
--- NOTE | 2020-07-22 14:49 | NUR ---
SNF Transfer Received phone call from Kita WINTER ([facility]) . Report given to on patient. Still awaiting transport time.
[2020-07-22 14:58] VITALS: BP 130/66
--- NOTE | 2020-07-22 16:00 | NUR ---
SNF Transport Called [facility] regarding transport, patient will be picked up at 1700. Will notify .
--- NOTE | 2020-07-22 17:00 | NUR ---
Family Update Called patient's and notified her of steel pickler time and patients room number along with contact information for [facility].
[2020-07-22 17:22] VITALS: BP 124/69
--- NOTE | 2020-07-22 18:12 | NUR ---
Transport Called [facility] regarding transport for patient. They will call back to let RN know about transportation delay.
--- NOTE | 2020-07-22 18:26 | NUR ---
Transport Received call from Su at [facility]. Safety Transport is running behind but they will tile picker patient at 7:45pm. Patient will be notified.
--- NOTE | 2020-07-22 19:24 | NUR ---
Mane Catheter Patient to go with Mane catheter.
--- NOTE | 2020-07-22 21:08 | NUR ---
Pt collected by [facility], pt heading to [facility]. Pt denies pain or any discomfort. Pt left unit on ronslow.
== END 2020-07-22 21:08 | DRG 981 ==
LOC: ER 12:06 → EDBD 12:06 → ICU WEST 14:14 → ER 15:30 → TELE-CENTR 07-17 23:20 → TELE-WESTW 07-18 12:48
PROVIDERS: ADMIT Nurse Practitioner Acute Care; ATTEND Internal Medicine
PROC: 5A1955Z Respiratory Ventilation, Greater than 96 Consecutive Hours (ICD-10-PCS; principal; 2020-07-09)
PROC: 4A143B0 Monitoring of Venous Pressure, Central, Percutaneous Approach (ICD-10-PCS; 2020-07-09)
PROC: 05HM33Z Insertion of Infusion Device into Right Internal Jugular Vein, Percutaneous Approach (ICD-10-PCS; 2020-07-09)
PROC: 0BH17EZ Insertion of Endotracheal Airway into Trachea, Via Natural or Artificial Opening (ICD-10-PCS; 2020-07-09)
PROC: 027034Z Dilation of Coronary Artery, One Artery with Drug-eluting Intraluminal Device, Percutaneous Approach (ICD-10-PCS; 2020-07-13)
PROC: B211YZZ Fluoroscopy of Multiple Coronary Arteries using Other Contrast (ICD-10-PCS; 2020-07-13)
PROC: 4A023N7 Measurement of Cardiac Sampling and Pressure, Left Heart, Percutaneous Approach (ICD-10-PCS; 2020-07-13)
DX: J96.21 Acute and chronic respiratory failure with hypoxia (principal); I21.4 Non-ST elevation (NSTEMI) myocardial infarction; N17.0 Acute kidney failure with tubular necrosis; I50.43 Acute on chronic combined systolic (congestive) and diastolic (congestive) heart failure; E43 Unspecified severe protein-calorie malnutrition; J18.9 Pneumonia, unspecified organism; I13.0 Hypertensive heart and chronic kidney disease with heart failure and stage 1 through stage 4 chronic kidney disease, or unspecified chronic kidney disease; J98.11 Atelectasis; D68.59 Other primary thrombophilia; N18.30 Chronic kidney disease, stage 3 unspecified; E11.22 Type 2 diabetes mellitus with diabetic chronic kidney disease; E78.5 Hyperlipidemia, unspecified; J43.9 Emphysema, unspecified; H91.90 Unspecified hearing loss, unspecified ear; Z20.828 Contact with and (suspected) exposure to other viral communicable diseases; E11.51 Type 2 diabetes mellitus with diabetic peripheral angiopathy without gangrene; I25.10 Atherosclerotic heart disease of native coronary artery without angina pectoris; Z80.1 Family history of malignant neoplasm of trachea, bronchus and lung; Z82.0 Family history of epilepsy and other diseases of the nervous system; Z86.19 Personal history of other infectious and parasitic diseases; Z86.73 Personal history of transient ischemic attack (TIA), and cerebral infarction without residual deficits; Z87.01 Personal history of pneumonia (recurrent); Z79.84 Long term (current) use of oral hypoglycemic drugs; Z68.23 Body mass index [BMI] 23.0-23.9, adult
CPT/HCPCS: 31500; 36415; 36556; 36600; 51702; 71045; 76775; 80048; 80053; 80061; 81001; 82570; 82728; 82805; 82962; 83605; 83735; 83880; 84100; 84156; 84300; 84484; 85025; 85610; 85730; 86141; 86850; 86900; 86901; 87040; 87070; 87081; 87205; 87426; 87804; 92610; 92928; 93005; 93306; 93454; 94002; 94003; 94640; 96374; 97110; 97116; 97163; 97530; 99152; 99153; 99291; C1874; C9113; G0378; J0330; J0696; J1100; J1815; J1956; J2001; J2185; J2250; J2704; J3430; J3480; J7060; P9047; Q9967